=== PATIENT | male | born 1975 | race Caucasian/White ===

== ENCOUNTER → 2017-04-16 | Outpatient (POV) | payer MEDICAID, SELFPAY | PROVIDERS: Family Provider Nurse Practitioner Family; PCP Nurse Practitioner Family; Visit Provider Specialist | DX: R20.2 Paresthesia of skin (principal); R20.8 Other disturbances of skin sensation; M54.5 Low back pain; G89.29 Other chronic pain | CPT/HCPCS: 95886; 95909 ==

== ENCOUNTER 2017-06-07 07:33 | Day surgery (SDC) | payer MEDICAID, SELFPAY ==
[2017-06-06 12:38] VITALS: BMI 42.3
[2017-06-07] VITALS (10 sets, daily range): BP systolic 101–141; BP diastolic 66–97; PULSE 76–105; RESP 16–20; TEMP 36.8–36.9; O2SAT 90–96
--- NOTE | 2017-06-07 09:17 | HMH.SCOPE ---
- Procedure: Date/Time of Procedure:: 06/07/17 09:17 Procedure Performed:: Esophagogastroduodenoscopy with biopsy Indications:: This is a 42-year-old gentleman being evaluated for epigastric pain. Performing Provider:: Theron Doyle MD Referring Provider:: Khalida Tenorio APRN Sedation:: IV sedation with 7 mg of Versed and 150 mcg of fentanyl Procedure:: After informed consent was obtained, the patient was taken to the end of suite. IV sedation instructor he was transferred to the left lateral decubitus position. The stomach was entered. Retroflexion revealed a sliding hiatal hernia. Minimal inflammatory response proximally was noted. The gastroesophageal junction was at 40 cm. Evaluation distally revealed focal severe inflammation at the antrum/pylorus. Biopsies were obtained. The pylorus was intubated. The duodenal mucosa appeared relatively normal. The gastroscope was carefully removed and the patient was transferred to recovery. Findings:: Esophageal junction at 40 cm Sliding hiatal hernia Focal severe inflammation of the antrum/pylorus Specimen: Antral biopsy Impressions:: (See findings) Recommendations:: Pending pathology Complications:: No immediate Estimated blood obtained (mL): 1
== END 2017-06-07 10:00 | disposition home or self-care (01) ==
PROVIDERS: PCP Emergency Medicine; Visit Provider Surgery
PROC: 0DJ08ZZ Inspection of Upper Intestinal Tract, Via Natural or Artificial Opening Endoscopic (ICD-10-PCS; CPT 43235; principal; 2017-06-07 08:30)
DX: K44.9 Diaphragmatic hernia without obstruction or gangrene (principal); R10.13 Epigastric pain; K52.9 Noninfective gastroenteritis and colitis, unspecified
CPT/HCPCS: 43239; 99152

== ENCOUNTER → 2017-07-09 07:28 | Outpatient (CLI) | payer MEDICAID, SELFPAY ==
--- NOTE | 2017-07-09 07:30 | NM_ITS ---
NM gastric emptying study CLINICAL INDICATION: Abdominal pain and bloating ORDERING PHYSICIAN: Theron Doyle MD PATIENT AGE: 42 years COMPARISON: None. DOSE: 0.54 mCi technetium sulfur colloid mixed in radio labeled meal FINDINGS: The one half emptying time is calculated be 58 minutes which is within normal limits. 76% of the gastric contents had emptied x 90 m. No obvious reflux on the submitted images. IMPRESSION: Normal gastric emptying time
--- NOTE | 2017-07-09 08:21 | HMH.ITSHM ---
lisinopril zoloft zantac naproxen
== END ==
PROVIDERS: Family Provider Nurse Practitioner Family; PCP Nurse Practitioner Family; Visit Provider Surgery
DX: K31.84 Gastroparesis (principal)
CPT/HCPCS: 78264; A9541

== ENCOUNTER → 2017-07-18 09:39 | Outpatient (CLI) | payer MEDICAID, SELFPAY ==
[2017-07-18 09:57] LABS: Basophils # 0.1 K/mm3 (0-0.2); Basophils % 1.2 % (0.1-2.0); Eosinophils # 0.2 K/mm3 (0.0-0.4); Eosinophils % 2.1 % (0.1-12.0); Hematocrit 45.2 % (42.0-52.0); Hemoglobin 14.7 g/dL (14.1-18.0); Lymphocytes # 2.4 K/mm3 (0.7-4.5); Lymphocytes % 28.3 K/mm3 (10-50); Mean Corpuscular HGB Conc 32.5 g/dL (31.8-35.4); Mean Corpuscular Hemoglobin 27.6 pg (27.0-31.2); Mean Corpuscular Volume 84.8 fl (80-94); Mean Platelet Volume 7.5 fl (7.4-10.4); Monocytes # 0.6 K/mm3 (0.1-1.0); Monocytes % 7.5 % (1.7-9.3); Neutrophils # 5.2 K/mm3 (1.8-7.8); Neutrophils % 60.9 % (37.0-80.0); Platelet Count 320 K/mm3 (142-424); Red Blood Count 5.33 M/mm3 (4.60-6.20); Red Cell Distribution Width 13.3 % (11.5-17.5); White Blood Count 8.6 K/mm3 (4.8-10.8)
[2017-07-18 11:20] LABS: Alanine Aminotransferase 26 U/L (12-78); Albumin Level 3.8 gm/dL (3.4-5.0); Albumin/Globulin Ratio 0.9 (1.1-1.8); Alkaline Phosphatase 114 U/L (46-116); Anion Gap 11.6 mEq/L (5-15); Aspartate Amino Transferase 15 U/L (15-37); Bilirubin,Total 0.3 mg/dL (0.2-1.0); Blood Urea Nitrogen 16 mg/dL (7-18); Calcium 8.8 mg/dL (8.5-10.1); Carbon Dioxide 31 mmol/L (21.0-32.0); Chloride 104 mmol/L (98-107); Creatinine,Serum 0.82 mg/dL (0.70-1.30); Estimated Glomerular Filt Rate 104 ml/min (>60); GFR (African American) 126 ML/MIN (>60); Globulin 4.1 gm/dl (1.3-3.2); Glucose 80 mg/dL (74-106); Potassium 4.6 mmoL/L (3.5-5.1); Sodium 142 mmol/L (136-145); Total Protein,Serum 7.9 gm/dL (6.4-8.2)
== END ==
PROVIDERS: PCP Emergency Medicine; Visit Provider Surgery
DX: K82.4 Cholesterolosis of gallbladder (principal)
CPT/HCPCS: 36415; 80053; 85025; 93005

== ENCOUNTER 2017-07-27 12:38 | Emergency (ER) | payer MEDICAID, SELFPAY ==
[2017-07-27 13:42] VITALS: BP 114/77; PULSE 88; RESP 18; TEMP 36.6; O2SAT 97; BMI 43.5
--- NOTE | 2017-07-27 14:17 | HMH.EDUTC ---
[facility] Disposition Clinical Impression: Viral syndrome Disposition: Home, Self-Care Condition on Discharge: Good Instructions: DI for Headache, Cough Additional Instructions: Follow up with family doctor if symptoms persist Return if needed Over the counter Motrin or Tylenol as needed for fever or pain If any life threatening problems go straight to ER Even though you tested negative for the flu today you could still end up testing positive in a couple of day where your has flu, drink plenty of liquids and rest Prescriptions: Dextromethorphan Polistirex [Delsym] 10 ml PO Q12H PRN #300 priscila.er.12h PRN Reason: Cough Loratadine [Claritin 10mg Tablet] 10 mg PO DAILY #30 tab Referrals: Abbe Saini MD [Primary Care Provider] - As needed Time of Disposition: 14:33 Medical Decision Making - Medical Records Medical records reviewed: Yes: I reviewed the patient's medical records. Vital Signs: 07/27/17 13:42 Temperature 97.8 F Temperature Source Oral Pulse Rate [Right Brachial] 88 Respiratory Rate 18 Blood Pressure [Right Arm] 114/77 Blood Pressure Mean [Right Arm] 89 Blood Pressure Source [Right Arm] Automatic Cuff Blood Pressure Position [Right Arm] Sitting 02 Sat by Pulse Oximetry 97 Oxygen Delivery Method Room Air - Jalil Inquiry Pt receiving controlled substance: No Jalil was queried for this patient: No - Reevaluation(s) Time: 14:22 Reevaluation #1: Patient initially refused flu testing but agreed to be tested after daughter tested positive for the flu Time: 14:29 Reevaluation #3: Patient flu test negative, patient informed that even though he is testing negative right now in a day or so he could easily test positive verbalized understand and advised that he would follow up with family doctor for further evaluation [facility] HPI - General Stated complaint: suspected high bp, headache sick to stomach Mode of Arrival: Ambulatory Source of Information: Patient Limitations: No Limitations Description of Symptoms (Recalled from Triage Doc. by RN): cough, GALLARDO, nausea, lower abd pain for 2 days HEENT Symptoms (Recalled from RN notes): Yes (GALLARDO) Resp Symptoms (Recalled from RN notes): Yes (cough) Skin Symptoms (Recalled from RN notes): No MS Symptoms (Recalled from RN notes): No Functional Status (Recalled from RN notes): na - History of Present Illness Provider Complaint: States that he has not been feeling well for several days State that he is not sure if he is getting sick or if his blood pressure was high so he came in get checked out. States that one of his children was sick ealier in the week and now his baby is sick too State that he has been having cramping like feeling in his lower abdomen and feels like he is nausous - Related Data Previous Rx's Medication Instructions Recorded lisinopril 5 mg tablet 10 mg PO DAILY #30 tab 06/21/17 sertraline 50 mg tablet 50 mg PO QDAY #30 tab 06/21/17 Dextromethorphan Polistirex 10 ml PO Q12H PRN #300 priscila.er.12h 07/27/17 [Delsym] Loratadine [Claritin 10mg Tablet] 10 mg PO DAILY #30 tab 07/27/17 Allergies Allergy/AdvReac Type Severity Reaction Status Date / Time No Known Allergies Allergy Verified 07/18/17 09:11 - Worker's Comp Is this a Worker's Comp case?: No Is this an Smartdate Worker's Comp?: No Is this a Magdi Worker's Comp?: No Smartdate History I have reviewed the patient's past medical history: Yes Medical History: Reports:: Hypertension, Migraine Denies:: Cancer, Diabetes Mellitus Type 1, Diabetes Mellitus Type 2, Lung Disease, MRSA, Seizures Laterality Cases: Bilateral: Myringotomy (Ear Tubes), Tonsillectomy Other Surgeries: Yes: EGD Amputation: No Fractures: No - Social History Educational Level: Completed High School Smoking Status: Never smoker Alcohol Intake: never Substance Use Type: denies use - Psychiatric History Expresses thoughts of harming self/others: None Suicide Plan Description: No Plan Family Hx:: S
--- NOTE | 2017-07-27 14:20 | ED_ITS ---
[facility] [place] Clinical Impression: Viral syndrome Disposition: Home, Self-Care Condition on Discharge: Good Instructions: DI for Headache, Cough Additional Instructions: Follow up with family doctor if symptoms persist Return if needed Over the counter Motrin or Tylenol as needed for fever or pain If any life threatening problems go straight to ER Even though you tested negative for the flu today you could still end up testing positive in a couple of day where your has flu, drink plenty of liquids and rest Prescriptions: Dextromethorphan Polistirex [Delsym] 10 ml PO Q12H PRN #300 priscila.er.12h PRN Reason: Cough Loratadine [Claritin 10mg Tablet] 10 mg PO DAILY #30 tab Referrals: Abbe Saini MD [Primary Care Provider] - As needed Time of Disposition: 14:33 Medical Decision Making - Medical Records Medical records reviewed: Yes: I reviewed the patient's medical records. Vital Signs: 07/27/17 13:42 Temperature 97.8 F Temperature Source Oral Pulse Rate [Right Brachial] 88 Respiratory Rate 18 Blood Pressure [Right Arm] 114/77 Blood Pressure Mean [Right Arm] 89 Blood Pressure Source [Right Arm] Automatic Cuff Blood Pressure Position [Right Arm] Sitting 02 Sat by Pulse Oximetry 97 Oxygen Delivery Method Room Air - Jalil Inquiry Pt receiving controlled substance: No Jalil was queried for this patient: No - Reevaluation(s) Time: 14:22 Reevaluation #1: Patient initially refused flu testing but agreed to be tested after daughter tested positive for the flu Time: 14:29 Reevaluation #3: Patient flu test negative, patient informed that even though he is testing negative right now in a day or so he could easily test positive verbalized understand and advised that he would follow up with family doctor for further evaluation [facility] [place] - General Stated complaint: suspected high bp, headache sick to stomach Mode of Arrival: Ambulatory Source of Information: Patient Limitations: No Limitations Description of Symptoms (Recalled from Triage Doc. by RN): cough, GALLARDO, nausea, lower abd pain for 2 days HEENT Symptoms (Recalled from RN notes): Yes (GALLARDO) Resp Symptoms (Recalled from RN notes): Yes (cough) Skin Symptoms (Recalled from RN notes): No MS Symptoms (Recalled from RN notes): No Functional Status (Recalled from RN notes): na - History of Present Illness Provider Complaint: States that he has not been feeling well for several days State that he is not sure if he is getting sick or if his blood pressure was high so he came in get checked out. States that one of his children was sick ealier in the week and now his baby is sick too State that he has been having cramping like feeling in his lower abdomen and feels like he is nausous - Related Data Previous Rx's Medication Instructions Recorded lisinopril 5 mg tablet 10 mg PO DAILY #30 tab 06/21/17 sertraline 50 mg tablet 50 mg PO QDAY #30 tab 06/21/17 Dextromethorphan Polistirex 10 ml PO Q12H PRN #300 priscila.er.12h 07/27/17 [Delsym] Loratadine [Claritin 10mg Tablet] 10 mg PO DAILY #30 tab 07/27/17 Allergies Allergy/AdvReac Type Severity Reaction Status Date / Time No Known Allergies Allergy Verified 07/18/17 09:11 - Worker's Comp Is this a Worker's Comp case?: No Is this an H Worker's Comp?: No Is this a Magdi Worker's Comp?: No H Histor
[2017-07-27 14:46] VITALS: BP 116/78; PULSE 76; RESP 18; TEMP 36.6
[2017-07-27 14:56] LABS: UTC Influenza A Antigen Negative (Negative); UTC Influenza B Antigen Negative (Negative)
== END 2017-07-27 14:46 | disposition home or self-care (01) ==
PROVIDERS: Emergency Provider Nurse Practitioner; Family Provider Nurse Practitioner Family; PCP Emergency Medicine
DX: B34.9 Viral infection, unspecified (principal); I10 Essential (primary) hypertension
CPT/HCPCS: 87804; 99202

== ENCOUNTER 2017-08-03 07:31 | Day surgery (SDC) | payer MEDICAID, SELFPAY ==
[2017-08-02 14:55] VITALS: BMI 43.5
[2017-08-03] VITALS (14 sets, daily range): BP systolic 131–159; BP diastolic 77–97; PULSE 57–84; RESP 12–18; TEMP 36.6–37.1; O2SAT 93–98
--- NOTE | 2017-08-03 08:18 | HMH.ANESCL ---
[facility] Anesthesia Checklist - Structural Data Admitted From: Home Planned Operative Procedure/s: caterina leighe Consent for Planned Operative Procedure(s) Verified: Yes Verified Documents: Surgical Consent - NPO Status Verified Time NPO: 11:30 - Airway Assessment C-Spine Mobility Assessed: Yes TMJ Mobility Assessed: Yes Dentition: Poor Dentition - Neurological Assessment Level of Consciousness: Awake, Alert - Anesthesia Plan Anesthesia Risk discussed: Yes Anesthesia Plan: Verified ASA Class: II Anesthesia Type: General [facility] Anesthesia HX I have reviewed the patient's past medical history: Yes Medical History: Reports:: Hypertension, Migraine Denies:: Cancer, Diabetes Mellitus Type 1, Diabetes Mellitus Type 2, Internal Pacemaker, Lung Disease, MRSA, Seizures Other Medical History: Denies: Blood Transfusion Reaction Laterality Cases: Bilateral: Myringotomy (Ear Tubes), Tonsillectomy Other Surgeries: Yes: EGD. No: Pacemaker Amputation: No Fractures: No *Family Hx:: Stroke, Hypertension, Diabetes
--- NOTE | 2017-08-03 09:38 | P.OP_ITS ---
Date of procedure: 08/03/17 Pre-op Diagnosis:: Right upper quadrant pain Cholesterolosis of gallbladder Post-op Diagnosis:: Chronic cholecystitis Procedure performed:: Laparoscopic cholecystectomy Surgeon:: Theron Doyle MD Musical Instrument Supervisor(s):: Uri Mcgowan SINKER WINDER:: Giancarlo Dorantes Anesthesia: GETA Estimated blood loss (mL): 10 Operative findings:: Moderate pericholecystic fat stranding (in particular, in and around the infundibulum) Operative note:: After informed consent was obtained, the patient was taken to the operating room and placed in the supine position. General anesthesia was induced and the abdomen was prepped and draped in a sterile fashion. After infiltration with local anesthetic an infraumbilical incision was made. A Veress needle was placed in position. The abdomen was insufflated. A 5 mm optical trocar was placed in position. Under direct visualization, a 12 mm trocar was placed in the subxiphoid position and 2 additional 5 mm trocars were placed in the right upper quadrant. The gallbladder was elevated up and over the liver margin. The tissue around the cystic duct was carefully dissected. 3 clips were placed proximally and the duct was transected with harmonic sanjeev. 2 clips were placed on the cystic artery. Harmonic sanjeev were then utilized to dissect above these clips and to also dissect the gallbladder away from the liver margin. The gallbladder was placed in a retrieval bag and removed through the subxiphoid trocar site. The right upper quadrant was thoroughly irrigated. No active bleeding or bile leak was noted. Fascia at the subxiphoid trocar site was reapproximated utilizing the NeoClose device. The remaining trocars were removed. All wounds were irrigated and skin was closed with 4-0 Monocryl in a subcuticular fashion. Steri-Strips were applied. The patient's anesthetic agents were reversed and extubation was completed prior to transfer to recovery in stable condition. Condition: stable Disposition: PACU Specimens:: Gallbladder and contents Complications:: No immediate
--- NOTE | 2017-08-03 09:53 | HMH.ANESI ---
[facility] Anesthesia Record Part I Intake, IV Amount: 1,500 Estimated blood loss (mL): 0 Urine output (mL): 0 Blood Pressure: 146/97 SaO2: 93 Pulse Rate: 63 Respiratory Rate: 12 Temperature: 98.7 F Patient is:: Awake, Stable Stable to PACU at:: 09:55
--- NOTE | 2017-08-03 09:54 | P.PN_ITS ---
[facility] Anesthesia Record Part II Discharge Time: 01:25 Destination: [facility] PACU nurse assessment reviewed?: Yes Patient Condition:: Good Anesthesia Complications:: None
--- NOTE | 2017-08-03 09:54 | HMH.ANESII ---
[facility] Anesthesia Record Part II Discharge Time: 01:25 Destination: [facility] PACU nurse assessment reviewed?: Yes Patient Condition:: Good Anesthesia Complications:: None
== END 2017-08-03 11:01 | disposition home or self-care (01) ==
LOC: OR 07:32
PROVIDERS: Family Provider Nurse Practitioner Family; PCP Emergency Medicine; Visit Provider Surgery
PROC: 0FT44ZZ Resection of Gallbladder, Percutaneous Endoscopic Approach (ICD-10-PCS; CPT 47562; principal; 2017-08-03 08:45)
DX: K82.4 Cholesterolosis of gallbladder (principal); K80.10 Calculus of gallbladder with chronic cholecystitis without obstruction
CPT/HCPCS: 47562; 96374; J2270; J2405; J2710

== ENCOUNTER → 2017-10-08 10:03 | Outpatient (REF) | payer MEDICAID, SELFPAY ==
[2017-10-09 09:22] LABS: Hep A Ab, IgM Negative (Negative); Hepatitis B Core Antibody IgM Negative (Negative); Hepatitis B Surface Antigen Negative (Negative)
[2017-10-09 12:00] LABS: HIV Screen 4th Generation wRfx Non Reactive (Non Reactive); Hepatitis C Antibody <0.1 s/co ratio (0.0-0.9); Rapid Plasma Reagin Ab Titer Non Reactive (NonRea<1:1)
== END ==
LOC: LAB 10:03
PROVIDERS: Visit Provider Nurse Practitioner Family
DX: R53.83 Other fatigue (principal)
CPT/HCPCS: 80074; 86592; 86703; G0432

== ENCOUNTER 2017-12-06 08:00 | Outpatient (RCR) | payer MEDICAID, SELFPAY ==
--- NOTE | 2017-10-25 09:16 | HMH.PTOPEV ---
PT Outpatient Evaluation Rehab PT Outpatient Evaluation Start: 10/25/17 08:52 Freq: Status: Active Protocol: Document 10/25/17 08:52 NATASHA (Rec: 10/25/17 09:14 NATASHA [id number]) Electronically Signed By Osmar Lange, PT 10/25/17 08:52 Outpatient Therapy Subjective History Subjective History Patient is a 42 year old male presenting to outpatient PT with reports of L wrist/hand pain with associated numbness and tingling predominantly in the ulnar nerve distribution but migrates across the entire hand. He was referred with diagnosis of CTS and De Quervains syndrome. Symptoms started 04/2017 and have progressively gotten worse. Pt reports that he has already scheduled for surgery on 12/11. Pt refuses any injections. No treatment for current syptoms to date. Pt reports taking OTC NSIAD's prn . 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 Worker Strength Symptom Type Ache Sharp Numbness Tingling Symptoms Relieved By Nothing Symptoms Aggravated By Physical Activity Prior Functional Limitations None Current Functional Limitations Lifting Housework Dressing Driving Sleeping Recreation Activity Symptom Description Constant but Variable Level of pain today (0-10) 4 Pain scale - at its best (0-10) 8 Pain scale - at its worst (0-10) 2 Wrist/Hand Eval Palpation Tenderness/Visual Exam Wrist pain left tenderness wrist exam standard left Wrist/Hand Palpation Findings Tenderness Flexibility Deficits Wrist Extensors Muscle Length (L) Mild Tightness Wrist Flexors Muscle Length (L) Mild Tightness Wrist Range of Motion Wrist Limitations of Range of Motion Soft Tissue Tightness Wrist Extension Active Range of Motion ( 45 degrees) Wrist Flexion Active Range of Motion ( 38 degrees) Wrist Radial Deviation Active Range of 20 Motion (degrees) Wrist Ulnar Deviation Active Range of 30
== END 2017-12-06 08:01 | disposition home or self-care (01) ==
LOC: PT 08:00
PROVIDERS: Family Provider Nurse Practitioner Family; PCP Emergency Medicine; Visit Provider Orthopaedic Surgery
DX: G56.02 Carpal tunnel syndrome, left upper limb (principal); M65.4 Radial styloid tenosynovitis [de Quervain]
CPT/HCPCS: 97010; 97014; 97018; 97033; 97035; 97110; 97163; G0283

== ENCOUNTER → 2017-12-27 08:46 | Outpatient (CLI) | payer MEDICAID, SELFPAY ==
--- NOTE | 2017-12-27 08:46 | XR_ITS ---
XR foot wt bearing RT 3V, XR foot wt bearing LT 3V Ordering Physician: Araceli Torres DPM Patient Age: 42 years: Male HISTORY: ITS.REASON: pain Painful feet bilaterally. TECHNIQUE: Right foot weightbearin views Left foot weightbearing 3 views COMPARISON :No studies prior to today ======= RIGHT FOOT weightbearin views Right foot is intact...... Satisfactory osseous relationships. No erosions. Bones well mineralized. Adequate plantar arch. Small calcaneal spurs with small just over 5 mm plantar calcaneal spur with only very minimal spurring at insertion of Achilles tendon also noted. . ========= LEFT FOOT weightbearing 3 views Left foot is intact...... Satisfactory osseous relationships. No erosions. Bones well mineralized. Adequate plantar arch. small less than 4 mm mm plantar calcaneal spur , with only mild prominence at insertion of Achilles tendon.. .
--- NOTE | 2017-12-27 08:46 | XR_ITS ---
XR foot wt bearing RT 3V, XR foot wt bearing LT 3V Ordering Physician: Araceli oTrres DPM Patient Age: 42 years: Male HISTORY: ITS.REASON: pain Painful feet bilaterally. TECHNIQUE: Right foot weightbearin views Left foot weightbearing 3 views COMPARISON :No studies prior to today ======= RIGHT FOOT weightbearin views Right foot is intact...... Satisfactory osseous relationships. No erosions. Bones well mineralized. Adequate plantar arch. Small calcaneal spurs with small just over 5 mm plantar calcaneal spur with only very minimal spurring at insertion of Achilles tendon also noted. . ========= LEFT FOOT weightbearing 3 views Left foot is intact...... Satisfactory osseous relationships. No erosions. Bones well mineralized. Adequate plantar arch. small less than 4 mm mm plantar calcaneal spur , with only mild prominence at insertion of Achilles tendon.. .
== END ==
PROVIDERS: Visit Provider Podiatrist
DX: M79.673 Pain in unspecified foot (principal)
CPT/HCPCS: 73630

== ENCOUNTER 2018-01-18 14:00 | Outpatient (RCR) | payer MEDICAID, SELFPAY ==
--- NOTE | 2017-12-21 13:53 | HMH.OTOPEV ---
OT Inpatient Evaluation Rehab OT Outpatient Eval Start: 12/21/17 13:30 Freq: Status: Active Protocol: Document 12/21/17 13:30 TFRY (Rec: 12/21/17 13:50 TFRY [id number]) Electronically Signed By Lamar Garcias, OT 12/21/17 13:30 Outpatient Therapy Subjective History Subjective History This a 42 year old right handed male referred to occupational therapy for left hand/wrist flexor tendonitis and left DeQuervains tenosynovtis/left carpal tunnel. Patient states that he had been in therapy for his carpal tunnel syndrome and it got better. But when he went to see doctor for follow up visit he reported to the doctor dorsal surface wrist pain. Chief Complaint Pain Symptom Type Throb Sharp Symptoms Relieved By Nothing Symptoms Aggravated By Physical Activity Prior Functional Limitations None Current Functional Limitations Desk Work/Reading Symptom Description Constant but Variable Level of pain today (0-10) 5 Pain scale - at its best (0-10) 2 Pain scale - at its worst (0-10) 8 Wrist/Hand Eval Palpation Tenderness/Visual Exam Wrist pain left tenderness wrist exam standard left Wrist/Hand Palpation Findings Tenderness Wrist/Hand Palpation Overall Comment tenderness at anatomical snuff box on left Wrist Range of Motion Wrist ROM Reason Not Measured Within Functional Limits Wrist Manual Muscle Testing Left Wrist Extension Strength Grade 4 Good Wrist Flexion Strength Grade 4 Good Wrist Radial Deviation Strength Grade 4 Good Wrist Ulnar Deviation Strength Grade 4 Good Forearm Pronation Strength Grade 4 Good Supinator Strength Grade 4 Good Mapping Supervisor/Pinch Strength Mapping Supervisor Strength Measurement (lbs) 68 Special Tests Wrist Phalen Test Negative Left Hand Caldwell Test Negative Left Wrist Tinel Test Negative Left Wrist Finklestein Test Negative Left OT Outpatient Assessment Impairments Problems/Impairments Palpation Tenderness Impaired Strength Subjective C/O Pain Prognosis Rehab Potential Fair Clinical Impression Consistent with Diagnosis Yes Short Term Goals Number of Weeks 2 Decreased Palpation Tenderness Yes Increase Strength Yes:
== END 2018-01-18 14:01 | disposition home or self-care (01) ==
LOC: OT 14:00
PROVIDERS: Family Provider Nurse Practitioner Family; PCP Emergency Medicine; Visit Provider Orthopaedic Surgery
DX: M77.8 Other enthesopathies, not elsewhere classified (principal); M65.4 Radial styloid tenosynovitis [de Quervain]; G56.00 Carpal tunnel syndrome, unspecified upper limb
CPT/HCPCS: 97033; 97110; 97165

== ENCOUNTER → 2018-02-18 10:30 | Outpatient (CLI) | payer MEDICAID, SELFPAY ==
[2018-02-18 11:28] LABS: C-Reactive Protein 1.9 mg/L (0.0-0.9)
[2018-02-18 13:19] LABS: Erythrocyte Sedimentation Rate 41 mm/hr (0-15)
[2018-02-19 08:20] LABS: RA Latex Turbid. <10.0 IU/mL (0.0-13.9)
[2018-02-19 14:19] LABS: Anti-Jo-1 <0.2 AI (0.0-0.9); Anti-Smith Antibody <0.2 AI (0.0-0.9); Antichromatin Antibodies <0.2 AI (0.0-0.9); Antiscleroderma-70 Antibodies <0.2 AI (0.0-0.9); RNP Antibodies <0.2 AI (0.0-0.9); Sjogren's Anti-SS-A <0.2 AI (0.0-0.9); Sjogren's Anti-SS-B <0.2 AI (0.0-0.9)
[2018-02-20 01:09] LABS: PTT-LA 37.9 sec (0.0-51.9)
[2018-02-20 07:48] LABS: Anti-Centromere B Antibodies <0.2 AI (0.0-0.9); Anti-DNA (DS) Ab Qn 1 IU/mL (0-9); HIV Screen 4th Generation wRfx Non Reactive (Non Reactive)
[2018-02-20 07:49] LABS: Anti-Cyclic Citrullinated Pept 9 units (0-19)
[2018-02-20 07:52] LABS: dRVVT 47.6 sec (0.0-47.0)
[2018-02-22 09:23] LABS: Lupus Reflex Interpretation Comment: (.)
== END ==
PROVIDERS: PCP Nurse Practitioner Family; Visit Provider Nurse Practitioner Family
DX: M25.50 Pain in unspecified joint (principal); Z20.6 Contact with and (suspected) exposure to human immunodeficiency virus [HIV]
CPT/HCPCS: 36415; 85613; 85651; 86140; 86200; 86225; 86235; 86431; 86703; G0432

== ENCOUNTER → 2018-03-15 13:46 | Outpatient (CLI) | payer MEDICAID, SELFPAY ==
--- NOTE | 2018-03-15 13:56 | MR_ITS ---
MR foot LT wo/w con HISTORY: Medial left foot pain and swelling Left foot pain and swelling, posterior tibial tendon ITS.REASON: PTTD of Left Lower Extremity ORDERING PHYSICIAN: Araceli Torres DPM PATIENT AGE: 42 years Comparison: 12/27/2017 TECHNIQUE: Standard multiplanar multiecho sequences are performed of the forefoot without and with gadolinium enhancement. The hindfoot and ankle are not included on the images. FINDINGS: No obvious fracture, dislocation, bone bruise or other significant anomalies evident. No abnormal fluid collections. No significant degenerative change IMPRESSION: Unremarkable MRI of the forefoot. Consider MRI of the hindfoot/ankle for further evaluation of posterior tibialis tendon dysfunction
--- NOTE | 2018-03-15 15:14 | HMH.ITSHM ---
Current Home Medications as stated by this patient Danilo Proctor or manufacturer representative. []sertraline meloxicam omeprazole bisolprol losartan
== END ==
PROVIDERS: Family Provider Nurse Practitioner Family; PCP Nurse Practitioner Family; Visit Provider Podiatrist
DX: M76.822 Posterior tibial tendinitis, left leg (principal)
CPT/HCPCS: 73720; A9576

== ENCOUNTER → 2018-03-26 10:49 | Outpatient (CLI) | payer MEDICAID, SELFPAY | PROVIDERS: Family Provider Nurse Practitioner Family; PCP Nurse Practitioner Family; Visit Provider Podiatrist | DX: M76.822 Posterior tibial tendinitis, left leg (principal) ==

== ENCOUNTER → 2018-04-10 12:11 | Outpatient (CLI) | payer MEDICAID, SELFPAY ==
[2018-04-10 14:03] LABS: Basophils # 0.1 K/mm3 (0-0.2); Basophils % 1.3 % (0.1-2.0); Eosinophils # 0.2 K/mm3 (0.0-0.4); Eosinophils % 1.6 % (0.1-12.0); Hematocrit 43.2 % (42.0-52.0); Hemoglobin 13.7 g/dL (14.1-18.0); Lymphocytes # 2.6 K/mm3 (0.7-4.5); Lymphocytes % 24.7 % (10-50); Mean Corpuscular HGB Conc 31.7 g/dL (31.8-35.4); Mean Corpuscular Hemoglobin 26.8 pg (27.0-31.2); Mean Corpuscular Volume 84.7 fl (80-94); Mean Platelet Volume 7.6 fl (7.4-10.4); Monocytes # 0.7 K/mm3 (0.1-1.0); Monocytes % 6.7 % (1.7-9.3); Neutrophils # 6.9 K/mm3 (1.8-7.8); Neutrophils % 65.8 % (37.0-80.0); Platelet Count 344 K/mm3 (142-424); Red Cell Distribution Width 14.3 % (11.5-17.5); White Blood Count 10.4 K/mm3 (4.8-10.8)
[2018-04-10 14:21] LABS: Alanine Aminotransferase 43 U/L (12-78); Albumin Level 3.7 gm/dL (3.4-5.0); Albumin/Globulin Ratio 0.9 (1.1-1.8); Alkaline Phosphatase 127 U/L (46-116); Anion Gap 14.1 mEq/L (5-15); Aspartate Amino Transferase 25 U/L (15-37); Bilirubin,Total 0.4 mg/dL (0.2-1.0); Blood Urea Nitrogen 15 mg/dL (7-18); Calcium 8.5 mg/dL (8.5-10.1); Carbon Dioxide 29 mmol/L (21.0-32.0); Chloride 102 mmol/L (98-107); Creatinine,Serum 0.91 mg/dL (0.70-1.30); Estimated Glomerular Filt Rate 92 ml/min (>60); GFR (African American) 112 ML/MIN (>60); Globulin 4.2 gm/dl (1.3-3.2); Glucose 82 mg/dL (74-106); Potassium 4.1 mmoL/L (3.5-5.1); Sodium 141 mmol/L (136-145); Total Protein,Serum 7.9 gm/dL (6.4-8.2)
[2018-04-12 09:27] LABS: Vitamin D 25 Hydroxy 13.2 ng/mL (30.0-100.0)
== END ==
PROVIDERS: Visit Provider Podiatrist
DX: M76.822 Posterior tibial tendinitis, left leg (principal); M21.6X2 Other acquired deformities of left foot; M25.472 Effusion, left ankle; M65.9 Synovitis and tenosynovitis, unspecified; M19.072 Primary osteoarthritis, left ankle and foot; M79.672 Pain in left foot
CPT/HCPCS: 36415; 80053; 82652; 85025

== ENCOUNTER → 2018-06-07 12:11 | Outpatient (CLI) | payer MEDICAID, SELFPAY ==
--- NOTE | 2018-06-07 12:28 | XR_ITS ---
XR chest 2V HISTORY: ITS.REASON: HTN ORDERING PHYSICIAN: Araceli Torres DPM PATIENT AGE: 43 years COMPARISON: PA and lateral chest 02/21/2017 FINDINGS: This is a slightly poor inspiration however lung kessler are clear of infiltrate. There is minimal crowding of vascular markings at the right base. There is borderline cardio megaly with no pulmonary congestion and is no pleural fluid.. IMPRESSION: Negative chest, no acute finding
== END ==
PROVIDERS: PCP Nurse Practitioner Family; Visit Provider Podiatrist
DX: Z01.818 Encounter for other preprocedural examination (principal)
CPT/HCPCS: 71046; 93005

== ENCOUNTER → 2018-07-22 11:03 | Outpatient (CLI) | payer MEDICAID, SELFPAY ==
--- NOTE | 2018-07-22 11:06 | XR_ITS ---
XR ankle wt bearing LT min 3V HISTORY: Tendon repair ITS.REASON: post-op ORDERING PHYSICIAN: Araceli Torres DPM PATIENT AGE: 43 years Comparison: .) : 06/14/2018 FINDINGS: The metallic side plate is again seen distal fibula. There is a translucent fixator extending through the distal tibia in the tibial fibular syndesmosis and into the distal fibula. The medial lateral malleolus appear grossly normal and the ankle mortise is normal. IMPRESSION: Stable postsurgical changes as described.
--- NOTE | 2018-07-22 11:06 | XR_ITS ---
XR foot wt bearing LT 3V HISTORY: Follow-up surgery ITS.REASON: post-op ORDERING PHYSICIAN: Araceli Torres DPM PATIENT AGE: 43 years COMPARISON: 06/14/2018 FINDINGS: The splint has been removed. There is good alignment. No fracture or dislocation. IMPRESSION: Interval removal of the splint otherwise negative left foot
== END ==
PROVIDERS: PCP Nurse Practitioner Family; Visit Provider Podiatrist
DX: Z98.890 Other specified postprocedural states (principal); M79.672 Pain in left foot
CPT/HCPCS: 73610; 73630

== ENCOUNTER → 2018-09-23 10:39 | Outpatient (CLI) | payer MEDICAID, SELFPAY ==
--- NOTE | 2018-09-23 10:44 | XR_ITS ---
XR ankle wt bearing LT min 3V HISTORY: ITS.REASON: pain, follow-up surgery ORDERING PHYSICIAN: Araceli Torres DPM PATIENT AGE: 43 years Comparison: 07/22/2018 FINDINGS: The metallic side plate is again seen distal fibula. There is a translucent fixator extending through the distal tibia in the tibial fibular syndesmosis and into the distal fibula. The medial and lateral malleolus appear grossly normal and the ankle mortise is normal. The talar dome has an unremarkable appearance. There is some mild osteopenia in the mid and hindfoot IMPRESSION: Stable postsurgical changes as described.
--- NOTE | 2018-09-23 10:44 | XR_ITS ---
XR foot wt bearing LT 3V HISTORY: ITS.REASON: pain ORDERING PHYSICIAN: Araceli Torres DPM PATIENT AGE: 43 years COMPARISON: 07/22/2018 FINDINGS: No fracture or dislocation. No lytic or blastic change. There is normal mineralization.. The joint spaces are well-preserved. No significant degenerative/arthritic changes. No erosive changes evident. Mild osteopenia IMPRESSION: Osteopenia otherwise negative
== END ==
PROVIDERS: PCP Nurse Practitioner Family; Visit Provider Podiatrist
DX: Z98.890 Other specified postprocedural states (principal)
CPT/HCPCS: 73610; 73630

== ENCOUNTER 2018-09-26 15:11 | Observation (INO) ==
--- NOTE | 2018-09-26 15:19 | Emergency Department Note ---
ED Disposition Clinical Impression: Epileptic seizure Qualifiers: Epilepsy type: unspecified Intractability: not intractable Status epilepticus: without status epilepticus Qualified Code(s): G40.909 - Epilepsy, unspecified, not intractable, without status epilepticus Disposition: Admitted as Observation Condition on Discharge: Good Instructions: DI for Seizure Disorder -- Adult, DI for Seizure (Not Epilepsy/Seizure Disorder), DI for Seizure Disorder -- Child Referrals: Abbe Saini MD [Primary Care Provider] - - Critical Care Critical Care Time: No Attestation: On , the high probability of a clinically significant, sudden or life threatening deterioration of the following system(s) required my full and direct attention, intervention and personal management. The time I documented below is in addition to time spent performing reported procedures but includes the following listed in this critical care notation. Medical Decision Making - Medical Records Medical records reviewed: Yes: I reviewed the patient's medical records. - Jalil Inquiry Pt receiving controlled substance: No Vital Signs: 09/26/18 15:12 09/26/18 17:59 09/26/18 18:00 Temperature 98.3 F 98 F Temperature Source Oral Oral Pulse Rate [Left Brachial] 72 94 H 89 Respiratory Rate 18 18 Blood Pressure [Right Arm] 148/85 H 133/88 128/88 Blood Pressure Mean [Right Arm] 106 103 101 Blood Pressure Source [Right Arm] Automatic Cuff Automatic Cuff Automatic Cuff Blood Pressure Position [Right Arm] Sitting Supine Sitting 02 Sat by Pulse Oximetry 98 98 96 Oxygen Delivery Method Room Air Room Air Room Air - Lab Data Lab Results 09/26/18 15:42: WBC 14.5 H, RBC 5.49, Hgb 14.8, Hct 45.9, MCV 83.5, MCH 27.0, MCHC 32.3, RDW 14.1, Plt Count 375, MPV 7.5, Neut % (Auto) 72.6, Lymph % (Auto) 17.8, [place] % (Auto) 6.7, Eos % (Auto) 1.7, Baso % (Auto) 1.1, Neut # (Auto) 10.5 H, Lymph # (Auto) 2.6, [place] # (Auto) 1.0, Eos # (Auto) 0.2, Baso # (Auto) 0.2 09/26/18 15:42: Sodium 138, Potassium 3.6, Chloride 98, Carbon Dioxide 30, Anion Gap 13.6, BUN 13, Creatinine 1.07, Estimated Creat Clear 82, Estimated GFR 76, Est GFR ( Amer) 92, Glucose 109 H, Calcium 8.8, Total Bilirubin 0.4, AST 30, ALT 63, Alkaline Phosphatase 119 H, Troponin I < 0.02, Total Protein 8.6 H, Albumin 3.7, Globulin 4.9 H, Albumin/Globulin Ratio 0.8 L, Salicylates 2.4 L, Acetaminophen 0 L, Plasma/Serum Alcohol 0 09/26/18 15:42: Lactate 1.1 09/26/18 17:06: Urine Opiates Screen Negative, Urine Methadone Screen Negative, Ur Barbituates Screen Negative, Ur Phencyclidine Scrn Negative, Ur Amphetamines Screen Negative, U Benzodiazepines Scrn Negative, Urine Cocaine Screen Negative, U Marijuana (THC) Screen Negative Result diagrams: 09/26/18 15:42 09/26/18 15:42 Orders (Tests/Meds): ED MEDICATIONS Discontinued Medications Generic Name Dose Route Start Last Admin Trade Name Silvano PRN Reason Stop Dose Admin Levetiracetam 1,000 mg/ Sodium 110 mls @ 220 mls/hr 09/26/18 15:16 09/26/18 15:42 Chloride IV 09/26/18 15:17 220 mls/hr ONCE ONE Administration ORDERS Category Date Time Status Blood Culture Stat Micro 09/26/18 15:42 Received - Radiology Data #1 Image(s): Chest Image Reviewed: Yes I have reviewed radiologist's interpretation Preliminary Findings: Normal/NAD - CT Data CT Scan: Head Time Received: 18:19 (nap) ED CT Reviewed: Yes: I have viewed the radiologist's interpretation - ECG Data Tracing #1 I reviewed this ECG and interpreted as documented below: Normal Sinus Rhythm: Yes (lvh, no stemi) Medical Decision Narrative: admit d/w Dr Miguel General Adult HPI - General Chief complaint: Seizure Stated complaint: seizure Time Seen by Provider: 09/26/18 15:17 Source of Information: Patient - History of Present Illness HPI narrative: new onset tonic clonic seizure today, no injury, no fever, no pain, speech fluent, hx migraines and htn - Related Data Home Medications Medication Instructions Recorded Confirmed Cholecalciferol (Vitamin D3) 50,000 unit PO QWEEK 06/13/18 09/26/18 [Vitamin D3 50,000 unit Cap] Ergocalciferol (Vitamin D2) 50,000 unit PO QWEEK 06/13/18 09/26/18 [Drisdol] Losartan/Hydrochlorothiazide 1 tab PO DAILY 06/13/18 09/26/18 [Hyzaar 100-12.5 Tablet] Omeprazole [Omeprazole 40mg 40 mg PO DAILY 06/13/18 09/26/18 Capsule] Fluoxetine HCl [Prozac] 40 mg PO DAILY 09/26/18 09/26/18 Propranolol HCl [Propranolol HCl 120 mg PO DAILY 09/26/18 09/26/18 ER] SUMAtriptan succinate [Sumatriptan See Rx Instructions PO .COMPLEX 09/26/18 09/26/18 Succinate] Previous Rx's Medication Instructions Recorded ibuprofen 800 mg tablet 800 mg PO BID #60 tab 05/30/18 Allergies Allergy/AdvReac Type Severity Reaction Status Date / Time No Known Allergies Allergy Verified 09/26/18 13:52 [facility] History - Hepatitis A Screen Attestation statement:: This patient has been screened for Hepatitis A risk factors. Medical History: Reports:: Anxiety, Depression, Hypertension, Migraine Denies:: Cancer, Diabetes Mellitus Type 1, Diabetes Mellitus Type 2, Internal Pacemaker, Lung Disease, MRSA, Seizures Other Medical History: Reports: Arthritis, Sinus Problems. Denies: Blood Transfusion Reaction Comment: Anxiety, Depression,Low back pain Laterality Cases: Other Surgeries: Yes: Cholecystectomy, EGD. No: Pacemaker Amputation: No Fractures: No Comment: T&A,Ear tubes bilateral,Hernia Repair, left ankle surgery - Social History Smoking Status: Never smoker Alcohol Intake: never Alcohol Intake Frequency:: other Substance Use Type: denies use Occupational Status: unemployed Housing: house Household Members: family - Psychiatric History Pschychiatric History:: Reports:: Anxiety, Depression Family Hx:: Stroke, Hypertension, Diabetes, Heart Attack, Coronary Artery Disease Comment: Mother of VT at age 66 ROS Obtained: Yes Systems reviewed as appropriate & no additional complaints - Constitutional Constitutional: Denies fever(s) - Eyes Eyes: Denies change in vision - ENT Ears, Nose, Mouth, and Throat: Denies epistaxis - Cardiovascular Cardiovascular: Denies chest pain - Respiratory Respiratory: No dyspnea - Gastrointestinal Gastrointestingal: Denies: abdominal pain - Musculoskeletal Musculoskeletal: Denies neck pain - Integumentary/Breasts Skin/Breast: Denies bleeding lesions - Neurologic Neurologic: Denies abnormal speech, Denies focal weakness, Reports headache(s), Reports seizure-like activity Physical Exam - General General appearance: alert, in no apparent distress - Head Head exam: atraumatic - Eye Eye exam: Present: PERRL, EOMI - ENT ENT exam: Present: normal exam - Neck Neck exam: Present: normal inspection - Chest Chest inspection: Present: normal inspection - Respiratory Respiratory exam: Present: normal lung sounds bilaterally - Cardiovascular Cardiovascular exam: Present: regular rate, normal rhythm - Abdominal Exam Abdominal exam: Present: soft. Absent: tenderness - Extremities Exam Extremities exam: Present: full ROM - Back Exam Back exam: Absent: vertebral tenderness - Neurological Exam Neurological exam: Present: alert, oriented X3, other (cn 3 to 10 grossly intact) - Psychiatric Psychiatric exam: Present: normal affect, normal mood - Skin Skin exam: Present: warm, dry
[2018-09-26 15:53] LABS: Basophils # 0.2 K/mm3 (0-0.2); Basophils % 1.1 % (0.1-2.0); Eosinophils # 0.2 K/mm3 (0.0-0.4); Eosinophils % 1.7 % (0.1-12.0); Hematocrit 45.9 % (42.0-52.0); Hemoglobin 14.8 g/dL (14.1-18.0); Lymphocytes # 2.6 K/mm3 (0.7-4.5); Lymphocytes % 17.8 % (10-50); Mean Corpuscular HGB Conc 32.3 g/dL (31.8-35.4); Mean Corpuscular Volume 83.5 fl (80-94); Mean Platelet Volume 7.5 fl (7.4-10.4); Monocytes % 6.7 % (1.7-9.3); Neutrophils # 10.5 K/mm3 (1.8-7.8); Neutrophils % 72.6 % (37.0-80.0); Platelet Count 375 K/mm3 (142-424); Red Blood Count 5.49 M/mm3 (4.60-6.20); Red Cell Distribution Width 14.1 % (11.5-17.5); White Blood Count 14.5 K/mm3 (4.8-10.8)
[2018-09-26 16:07] LABS: Alanine Aminotransferase 63 U/L (12-78); Albumin Level 3.7 gm/dL (3.4-5.0); Albumin/Globulin Ratio 0.8 (1.1-1.8); Alkaline Phosphatase 119 U/L (46-116); Anion Gap 13.6 mEq/L (5-15); Aspartate Amino Transferase 30 U/L (15-37); Bilirubin,Total 0.4 mg/dL (0.2-1.0); Blood Urea Nitrogen 13 mg/dL (7-18); Calcium 8.8 mg/dL (8.5-10.1); Carbon Dioxide 30 mmol/L (21.0-32.0); Chloride 98 mmol/L (98-107); Globulin 4.9 gm/dl (1.3-3.2); Glucose 109 mg/dL (74-106); Potassium 3.6 mmoL/L (3.5-5.1); Salicylate 2.4 mg/dL (2.8-20.0); Sodium 138 mmol/L (136-145); Total Protein,Serum 8.6 gm/dL (6.4-8.2)
[2018-09-26 16:12] LABS: Acetaminophen 0 ug/mL (10-30); Ethyl Alcohol 0 mg/dL (0-99)
[2018-09-26 17:21] LABS: Amphetamine/Metha Screen,Urine Negative ng/mL (<1000); Barbiturates Screen,Urine Negative ng/mL (<200); Benzodiazepines Screen,Urine Negative ng/mL (<200); Cannabinoid Screen,Urine Negative ng/mL (<50); Cocaine Screen,Urine Negative ng/mL (<300); Methadone Screen,Urine Negative ng/mL (<300); Opiate Screen,Urine Negative ng/mL (<300); Phencyclidine Screen,Urine Negative ng/mL (<25)
--- NOTE | 2018-09-27 07:36 | Pharmacy Consult Notes ---
[facility] Pharmacy VTE Monitoring - Patient Demographics Admission date: 09/26/18 Report Date: 09/27/18 Time: 07:36 Allergies/Adverse Reactions: Patient Allergies No Known Allergies Allergy (Verified 09/26/18 13:52) Height: 1.68 m Weight: 143 kg Patient Problems: Current Active Problems (Updated 09/26/18 @ 18:20 by Sixto Villalpando MD) Epileptic seizure (Acute) - VTE Risk Labs: VTE Related Lab Results Hgb 14.8 g/dL (14.1-18.0) 09/26/18 15:42 Hct 45.9 % (42.0-52.0) 09/26/18 15:42 Plt Count 375 K/mm3 (142-424) 09/26/18 15:42 BUN 13 mg/dL (7-18) 09/26/18 15:42 Creatinine 1.07 mg/dL (0.70-1.30) 09/26/18 15:42 Estimated Creat Clear 82 mL/min (50-200) 09/26/18 15:42 Was VTE Risk Assessment Performed: Yes VTE Score: 3 VTE Risk Level: Low Risk - Prophylaxis VTE Prophylaxis Ordered?: Yes Types of VTE Prophylaxis: TEDS Knee High Location of Applied Device: Bilateral Lower Extremeties - VTE Diagnosis Confirmed Treatment or plan recommended: Continue Current Treatment
--- NOTE | 2018-09-27 10:10 | H&P/Discharge Summary ---
General - General Admission date:: 09/26/18 Discharge date: 09/27/18 *Admission Date: 09/26/18 *Chief complaint: possible sz *History of present illness: this wm was at pcp office for eval of headache - pt reports he has been having ongoing valera - no hx of sz and he reports having possible sz episode after blood draw at office - he was sent to ed for eval -w onset tonic clonic seizure today, no injury, no fever, no pain, speech fluent, hx migraines and htn pt has been having valera for some time but more freq lately [facility] History I have reviewed the patient's past medical history: Yes Medical History: Reports:: Anxiety, Depression, Hypertension, Migraine Denies:: Cancer, Diabetes Mellitus Type 1, Diabetes Mellitus Type 2, Internal Pacemaker, Lung Disease, MRSA, Seizures *Have you ever received a pneumonia vaccine?: No *Have you received a flu vaccine this season?: No Other Medical History: Reports: Arthritis, Sinus Problems. Denies: Blood Transfusion Reaction Laterality Cases: Bilateral: Myringotomy (Ear Tubes), Tonsillectomy, Other Other Surgeries: Yes: Cholecystectomy, EGD, Other (Geovanni tendon repair in feet). No: Pacemaker Amputation: No Fractures: No - *Social History Educational Level: Completed High School Smoking Status: Never smoker Alcohol Intake: never Alcohol Intake Frequency:: other Substance Use Type: denies use *Occupational Status:: unemployed Housing: house Household Members: family *Travel in the last 8 weeks: None - Psychiatric History Expresses thoughts of harming self/others: None Suicide Plan Description: No Plan Pschychiatric History:: Reports:: Anxiety, Depression Family Hx:: Coronary Artery Disease, Diabetes, Heart Attack, Stroke Review of Systems - Review of Systems Review of systems:: pertinent systems reviewed and negative unless documented below - Constitutional Denies fever(s) - Eyes Denies change in vision - ENT Denies sore throat - *Cardiovascular Denies shortness of breath - *Respiratory Denies cough, Denies coughing up blood - *Gastrointestinal Denies vomiting blood - *Genitourinary Denies blood in urine - *Musculoskeletal Denies joint pain, Denies joint swelling - Integumentary/Breasts Denies rash - *Neurologic Reports headache(s), Reports seizure-like activity, Denies abnormal speech, Denies localized weakness Exam Vital signs and Labs for Last 24 Hours: Temp Pulse Resp BP Pulse Ox 97.7 F 74 18 137/80 97 09/27/18 07:43 09/27/18 07:43 09/27/18 07:43 09/27/18 07:43 09/27/18 07:43 Laboratory Results - last 24 hr 09/26/18 15:42: WBC 14.5 H, RBC 5.49, Hgb 14.8, Hct 45.9, MCV 83.5, MCH 27.0, MCHC 32.3, RDW 14.1, Plt Count 375, MPV 7.5, Neut % (Auto) 72.6, Lymph % (Auto) 17.8, [place] % (Auto) 6.7, Eos % (Auto) 1.7, Baso % (Auto) 1.1, Neut # (Auto) 10.5 H, Lymph # (Auto) 2.6, [place] # (Auto) 1.0, Eos # (Auto) 0.2, Baso # (Auto) 0.2 09/26/18 15:42: Sodium 138, Potassium 3.6, Chloride 98, Carbon Dioxide 30, Anion Gap 13.6, BUN 13, Creatinine 1.07, Estimated Creat Clear 82, Estimated GFR 76, Est GFR ( Amer) 92, Glucose 109 H, Calcium 8.8, Total Bilirubin 0.4, AST 30, ALT 63, Alkaline Phosphatase 119 H, Troponin I < 0.02, Total Protein 8.6 H, Albumin 3.7, Globulin 4.9 H, Albumin/Globulin Ratio 0.8 L, Salicylates 2.4 L, Acetaminophen 0 L, Plasma/Serum Alcohol 0 09/26/18 15:42: Lactate 1.1 09/26/18 17:06: Urine Opiates Screen Negative, Urine Methadone Screen Negative, Ur Barbituates Screen Negative, Ur Phencyclidine Scrn Negative, Ur Amphetamines Screen Negative, U Benzodiazepines Scrn Negative, Urine Cocaine Screen Negative, U Marijuana (THC) Screen Negative I & O for Last 24 hours: Intake & Output 09/24/18 09/25/18 09/26/18 09/27/18 11:59 11:59 11:59 11:59 Intake Total 473 / 473 Balance 473 / 473 Weight 315 lb 4.176 oz - Constitutional no acute distress, obese - *Routine HEENT Exam Head: Present: normocephalic Eye: Present: EOMI, PERRL ENT: Absent: mucous membranes dry - *Routine Neck Exam Present: supple - *Routine Respiratory Exam Present: CTA bilaterally - *Routine Cardiovascular Exam Present: RRR, murmur - *Routine Abdominal Exam Present: soft - *Routine Extremities Exam Present: full ROM - *Routine Skin Exam Present: intact - *Routine Neurological Exam Present: alert, oriented X3, CN II-XII intact - Routine Psychiatric Exam Present: normal affect Hospital Course Hospital Course: pt without sz or any focal neuro changes with stable labs and neg ct Results Labs on day of discharge: Labs from last 24 hours 09/26/18 09/26/18 09/26/18 17:06 15:42 15:42 WBC RBC Hgb Hct MCV MCH MCHC RDW Plt Count MPV Neut % (Auto) Lymph % (Auto) [place] % (Auto) Eos % (Auto) Baso % (Auto) Neut # (Auto) Lymph # (Auto) [place] # (Auto) Eos # (Auto) Baso # (Auto) Sodium 138 Potassium 3.6 Chloride 98 Carbon Dioxide 30 Anion Gap 13.6 BUN 13 Creatinine 1.07 Estimated Creat Clear 82 Estimated GFR 76 Est GFR ( Amer) 92 Glucose 109 H Lactate 1.1 Calcium 8.8 Total Bilirubin 0.4 AST 30 ALT 63 Alkaline Phosphatase 119 H Troponin I < 0.02 Total Protein 8.6 H Albumin 3.7 Globulin 4.9 H Albumin/Globulin Ratio 0.8 L Salicylates 2.4 L Urine Opiates Screen Negative Urine Methadone Screen Negative Acetaminophen 0 L Ur Barbituates Screen Negative Ur Phencyclidine Scrn Negative Ur Amphetamines Screen Negative U Benzodiazepines Scrn Negative Urine Cocaine Screen Negative U Marijuana (THC) Screen Negative Plasma/Serum Alcohol 0 09/26/18 15:42 WBC 14.5 H RBC 5.49 Hgb 14.8 Hct 45.9 MCV 83.5 MCH 27.0 MCHC 32.3 RDW 14.1 Plt Count 375 MPV 7.5 Neut % (Auto) 72.6 Lymph % (Auto) 17.8 [place] % (Auto) 6.7 Eos % (Auto) 1.7 Baso % (Auto) 1.1 Neut # (Auto) 10.5 H Lymph # (Auto) 2.6 [place] # (Auto) 1.0 Eos # (Auto) 0.2 Baso # (Auto) 0.2 Sodium Potassium Chloride Carbon Dioxide Anion Gap BUN Creatinine Estimated Creat Clear Estimated GFR Est GFR ( Amer) Glucose Lactate Calcium Total Bilirubin AST ALT Alkaline Phosphatase Troponin I Total Protein Albumin Globulin Albumin/Globulin Ratio Salicylates Urine Opiates Screen Urine Methadone Screen Acetaminophen Ur Barbituates Screen Ur Phencyclidine Scrn Ur Amphetamines Screen U Benzodiazepines Scrn Urine Cocaine Screen U Marijuana (THC) Screen Plasma/Serum Alcohol DS: Diagnosis - Discharge Diagnosis (1) Headache Status: Acute (2) Epileptic seizure Status: Acute (3) Obesity Status: Acute Discharge Medications - Medications for Discharge Home Medication List at Discharge: Continued Omeprazole [Omeprazole 40mg Capsule] 40 mg PO DAILY Losartan/Hydrochlorothiazide [Hyzaar 100-12.5 Tablet] 1 tab PO DAILY Ergocalciferol (Vitamin D2) [Drisdol] 50,000 unit PO WEEKLY Cholecalciferol (Vitamin D3) [Vitamin D3 50,000 unit Cap] 50,000 unit PO WEEKLY SUMAtriptan succinate [Sumatriptan Succinate] See Rx Instructions PO DIRECTED Propranolol HCl [Propranolol HCl ER] 120 mg PO DAILY Fluoxetine HCl [Prozac] 40 mg PO DAILY Discontinued ibuprofen 800 mg tablet 800 mg PO BID #60 tab
== END 2018-09-27 13:15 | disposition home or self-care (01) ==
LOC: 2ND 15:11 → ER 15:11 → 2ND 20:03
PROVIDERS: ADMIT Family Medicine; ATTEND Emergency Medicine
DX: G43.909 Migraine, unspecified, not intractable, without status migrainosus; R51 Headache; I10 Essential (primary) hypertension; Z79.899 Other long term (current) drug therapy; E66.9 Obesity, unspecified; G40.909 Epilepsy, unspecified, not intractable, without status epilepticus
CPT/HCPCS: 70450; 71010; 71045; 80053; 80305; 80329; 83605; 84484; 85025; 87040; 93005; 96365; 96367; 99284; G0378; J1953

== ENCOUNTER 2018-10-01 10:00 | Outpatient (RCR) | payer MEDICAID, SELFPAY ==
--- NOTE | 2018-08-02 15:13 | HMH.PTOPEV ---
PT Outpatient Evaluation Rehab PT Outpatient Evaluation Start: 08/02/18 14:52 Freq: Status: Active Protocol: Document 08/02/18 14:54 PHORNE (Rec: 08/02/18 15:11 PHORNE [id number]) Electronically Signed By Sixto Carrillo, PT 08/02/18 14:54 Outpatient Therapy Subjective History Subjective History Pt is 43 yowm who presents with c/o continued pain, edema , and stiffness ~ 7 wks S/P Posterior tibial tendon repair with syndesmosis repair and ligament repairs medial and lateral. He presents in cam walker and reports he is allowed to begin WB'ing next week. He c/o failry constant pain with intermittent shooting pains near his incision. He reports hx of HTN , tachycardia, and CCY Chief Complaint Pain Stiff Swelling Symptom Type Ache Throb Sharp Numbness Tingling Shooting Symptoms Relieved By Nothing Symptoms Aggravated By Standing Physical Activity Prior Functional Limitations None Current Functional Limitations Driving Recreation Activity Walking Symptom Description Constant but Variable Level of pain today (0-10) 6 Pain scale - at its worst (0-10) 10 Ankle/Foot Eval Palpation Tenderness left Ankle/Foot Palpation Findings Tenderness Ankle/Foot Palpation Overall Comment medial ankle throughout, forefoot throughout ATF TTP negative PTF TTP negative CF TTP negative ROM Ankle/Foot Dorsiflexion w/Knee Extended -20 Active Range Motion (degrees) Ankle/Foot Dorsiflexion w/Knee Extended -8 Passive Range (degrees) Ankle/Foot Plantar Flexion Active Range 0-45 of Motion (degrees) Ankle/Foot Plantar Flexion Passive Range 0-45 of Motion (degrees) Ankle/Foot Eversion Active Range of 0-8 Motion (degrees) Ankle/Foot Eversion Passive Range of 0-18 Motion (degrees) Ankle/Foot Inversion Active Range of 0-24 Motion (degrees) Ankle/Foot Inversion Passive Range of 0-36 Motion (degrees) MMT Ankl
--- NOTE | 2018-09-03 09:36 | HMH.RHREAS ---
[facility] Reass[facility] Rehab OP Re-assessment Start: 09/03/18 09:29 Freq: Status: Active Protocol: Document 09/03/18 09:29 ROBE (Rec: 09/03/18 09:36 PHORTAHO [id number]) Electronically Signed By Sixto Carrillo, PT 09/03/18 09:29 Rehab Re-assessment Subjective Subjective Pt reports pain is decreased overall, 4/10 today. Objective Objective Notes Left ankle AROM: DF= -3, PF 0- 48, INV= 0-33, EVER= 0-15 Left ankle MMT: DF= 2+/5, PF= 4+/5, INV= 4/5, EVER= 4/5 Assessment Progress Assessment Slower Than Expected Assessment Notes Improving AROM, but patient continues to have poor gait pattern and just stopped wearing his cam walker over the past 2-3 days. Patient goals met ST,2,5,6,7 LTG: none Goals Not Met ST,4 LT,2,3,4,5 ,6,7 Revised Goals none Plan Plan Continue per initial POC. Frequency of Therapy 2x/wk Duration of therapy 8 wks Time and Billing Re-Eval Time 15 Re-Eval Billing Units 1 PHYSICIAN CERTIFICATION: I certify the specified therapy services for Danilo Proctor are required, authorized, and reviewed every 30 days.
== END 2018-10-01 10:05 | disposition home or self-care (01) ==
LOC: PT 10:00
PROVIDERS: Visit Provider Podiatrist
DX: Z98.890 Other specified postprocedural states (principal); R60.0 Localized edema; T81.31XA Disruption of external operation (surgical) wound, not elsewhere classified, initial encounter
CPT/HCPCS: 97010; 97014; 97016; 97035; 97110; 97112; 97140; 97163; 97164; G0283

== ENCOUNTER → 2018-12-04 10:40 | Outpatient (CLI) | payer MEDICAID, SELFPAY ==
--- NOTE | 2018-12-04 10:40 | CA_ITS ---
PROCEDURE: 2-D M-mode and color Doppler study TDS LIMITED SECONDARY OBESITY INDICATIONS FOR THE TEST: Chest pain COPD Heart Murmur Tobacco Smoking Palpitations Fatigue Syncope Edema HypertensionXDiabetes Mellitus Rheumatic Fever SOBXDOEXObesityXHyperlipidemia Family History HD Additional History ABN EKG,TACHYCARDIA PATIENT INFORMATION HEIGHT: 68 WEIGHT:323 GENDER: Male B/P:133/109 2-D/M-MODE INTERPRETATION: 2-D MEASUREMENTS OBSERVED VALUES IN CMS Right Ventricular Dimension (RVDd) 2.1 Interventricular Septum (Thickness)(IVsd) .9 Left Ventricular Internal Dimensions(LVIDd) 5.2 Left Ventricular Posterior Wall (Thickness)(LVPWd) .9 Aortic Root 3.5 Aortic Cusp Separation 2.0 Left Atrial Dimensions (LAD) 3.2 2D 1. Technically difficult study because of the patient's factor and poor acoustic windows 2. Left atrium is mildly enlarged, left ventricle is normal size, mild concentric left ventricular hypertrophy, visually estimated ejection fraction 55% with no regional wall motion abnormality, endocardial surfaces are poorly visualized. 3. The right atrium and right ventricle are mildly enlarged with normal contractility. 4. The aortic valve is minimally thickened and fibrosed. 5. The mitral and tricuspid valve are grossly normal. 6. The pulmonic valve is poorly visualized. 7. No significant pericardial effusion noted. DOPPLER INTERROGATION: Doppler interrogation of the aortic, mitral and tricuspid valvular presence of mild mitral and tricuspid regurgitation, tricuspid regurgitation jet velocity is inadequate for calculation of the right ventricular systolic pressure, diastolic parameters are inconclusive. CONCLUSION: 1. Normal left ventricular size, mild concentric left ventricular hypertrophy, visually estimated ejection fraction 55% with no obvious regional wall motion abnormality, diastolic parameters are inconclusive. 2. Mild mitral and tricuspid regurgitation 3. No significant pericardial effusion noted.
[2018-12-04 13:53] LABS: Anion Gap 11.9 mEq/L (5-15); Blood Urea Nitrogen 13 mg/dL (7-18); Calcium 8.4 mg/dL (8.5-10.1); Carbon Dioxide 28 mmol/L (21.0-32.0); Chloride 103 mmol/L (98-107); Creatinine,Serum 1.12 mg/dL (0.70-1.30); Estimated Glomerular Filt Rate 72 ml/min (>60); GFR (African American) 87 ML/MIN (>60); Glucose 150 mg/dL (74-106); Potassium 3.9 mmoL/L (3.5-5.1); Sodium 139 mmol/L (136-145)
== END ==
PROVIDERS: Internal Medicine Cardiovascular Disease; PCP Nurse Practitioner Family; Visit Provider Internal Medicine
DX: I10 Essential (primary) hypertension (principal); R06.09 Other forms of dyspnea; R94.31 Abnormal electrocardiogram [ECG] [EKG]; E66.9 Obesity, unspecified; G47.9 Sleep disorder, unspecified; R06.83 Snoring
CPT/HCPCS: 36415; 80048; 93306; 93308

== ENCOUNTER → 2019-01-22 13:24 | Outpatient (CLI) | payer MEDICAID, SELFPAY ==
--- NOTE | 2019-01-22 13:26 | US_ITS ---
APPROVED REPORT Indications Risk Factors Hypertension Obesity Pressures/Indices Right Indices Left Indices Brachial 162.00 mmHg Brachial 162.00 mmHg Low Thigh 0.00 mmHg 0.00 Low Thigh 0.00 mmHg 0.00 Calf 201.00 mmHg 1.24 Calf 202.00 mmHg 1.25 Ankle(PT) 192.00 mmHg 1.19 Ankle(PT) 211.00 mmHg 1.30 Ankle(DP) 184.00 mmHg 1.14 Ankle(DP) 191.00 mmHg 1.18 Digit 194.00 mmHg 1.20 Digit 209.00 mmHg 1.29 Findings RT JESSE=1.2 LT JESSE=1.3 RT TBI=1.2 LT TBI=1.3 Normal pulses Normal waveforms Conclusion NORMAL Electronically signed by : Devin Paz MD 01/23/2019 11:09:59
== END ==
PROVIDERS: PCP Nurse Practitioner Family; Visit Provider Podiatrist
DX: R09.89 Other specified symptoms and signs involving the circulatory and respiratory systems (principal)
CPT/HCPCS: 93923

== ENCOUNTER → 2019-01-29 08:37 | Outpatient (CLI) | payer MEDICAID, SELFPAY ==
--- NOTE | 2019-01-29 08:43 | MR_ITS ---
PROCEDURE: MR FOOT LT WO/W CON CLINICAL INDICATION: postop pain, impingement/entrapment of posterior tibialis nerve/tendinitis. FDL tendon tear, posterior tibial tendon dysfunction Pain on the medial side of the foot along the plantar surface. COMPARISON: FOOTLTWW MR foot LT wo/w con from 03/15/2018 TECHNIQUE: Multiplanar multi echo sequences are performed without and with gadolinium enhancement FINDINGS: No bone marrow edema or fractures are evident. The tibiofibular ligaments and talofibular ligaments appear intact. The ATFL appears intact. There is a small focus of increased T2 signal involving the posterior tibialis tendon best seen on axial STIR image series 5, image 6. There is some thickening of the posterior tibialis tendon and a small amount of fluid at the tendon sheath. These findings are suspicious for partial tear/tendinitis/tendinosis. There is enhancement of the distal aspect of the posterior tibialis tendon with some enhancement of the soft tissues adjacent to the tendon consistent with tendinitis and a possible partial tear. The flexor hallucis longus and flexor digitorum longus have an unremarkable appearance as do the peroneal tendons. There is an area of decreased T2 signal involving the peroneal longus tendon just superficial to the cuboid and may be postsurgical in nature. The extensor tendons and Achilles tendon have an unremarkable appearance. The deltoid ligament appears intact. There is a mild degree of motion artifact which somewhat obscures fine detail. IMPRESSION: 1. Abnormal appearance of the posterior tibialis tendon. At and below the level of medial malleolus the tendon is thickened with slight increased T2 signal suggesting tendinosis or partial tear. Distally the tendon is thickened with increased T2 signal and enhancement consistent with tendinitis with possible partial tear. 2. Suspect postsurgical changes of the peroneal longus tendon and ATFL. Dictated by: Devin Paz MD 02/06/2019 09:18 Electronically signed by Devin Paz MD in [place] 02/06/2019 09:18
--- NOTE | 2019-01-29 10:45 | HMH.ITSHM ---
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 []BISOPROLOL FUMARATE BUPROPION CHOLECALCIFEROL ERGOCALCIFEROL FLUTICASONE PROPIONATE LOSARTAN MECLIZINE OMEPRAZOLE SUMATRIPTAN
== END ==
PROVIDERS: PCP Nurse Practitioner Family; Visit Provider Podiatrist
DX: G57.52 Tarsal tunnel syndrome, left lower limb (principal); M76.822 Posterior tibial tendinitis, left leg; Z98.890 Other specified postprocedural states
CPT/HCPCS: 73720; A9576

== ENCOUNTER → 2019-02-10 14:23 | Outpatient (POV) | payer MEDICAID, SELFPAY | PROVIDERS: Visit Provider Specialist | DX: G57.52 Tarsal tunnel syndrome, left lower limb (principal); M79.605 Pain in left leg; M79.604 Pain in right leg; R20.2 Paresthesia of skin | CPT/HCPCS: 95886; 95909 ==

== ENCOUNTER 2019-03-18 09:47 | Outpatient (RCR) | payer MEDICAID, SELFPAY ==
--- NOTE | 2019-03-18 10:57 | HMH.PTOPEV ---
PT Outpatient Evaluation Rehab PT Outpatient Evaluation Start: 03/18/19 10:06 Freq: Status: Active Protocol: Document 03/18/19 10:06 TERESE (Rec: 03/18/19 10:57 TERESE [id number]) Electronically Signed By Harjeet Keita PT 03/18/19 10:06 Outpatient Therapy Subjective History Subjective History This is the initial Physical Therapy evaluation for Danilo Proctor. Pt is a 43 y/o male referred to PT for c/o L foot ankle pain and paresthesia. Pt reports he had ankle surgery for tendon tear . Pt reports he had physical therapy for ~ 2 months, with increased ROM and strength but has continued to have pain. Most noteably burning in medial arch/sole and tingling in toes. Pt also reports swelling across top of foot some days. Chief Complaint Pain,Paresthesia Symptom Type Sharp,Stabbing,Burning, Tingling,Shooting,Other Symptoms Relieved By Rest/Positioning Symptoms Aggravated By Standing,Physical Activity, Walking Prior Functional Limitations None Current Functional Limitations Housework,Standing,Recreation Activity,Walking,Stairs Symptom Description Constant but Variable Level of pain today (0-10) 4 Pain scale - at its best (0-10) 2 Pain scale - at its worst (0-10) 8 Lumbopelvic Eval Special Tests Sciatic Nerve Tension Test Positive Left Ankle/Foot Eval Gait Observation General Gait Pattern Observation Antalgic Gait Assistive Device Ambulation Assistive Device None Palpation Tenderness left Ankle/Foot Palpation Findings Tenderness,Trigger Point Ankle/Foot Palpation Overall Comment TTP inferior to medial scar and on med/lat maleolli. ROM Ankle/Foot Dorsiflexion w/Knee Extended 5 Active Range Motion (degrees) Ankle/Foot Plantar Flexion Active Range 50 of Motion (degrees) Ankle/Foot Eversion Active Range of 20 Motion (degrees) Ankle/Foot Inversion Active Range of 30 Motion (degrees) Ankle/Foot ROM Limitations Soft Tissue Tightness MMT Ankle Dorsiflexion Strength Grade 5 Normal Ankle Plantarflexion Strength Grade 5 Normal Foot Eversion Strength Grade 5 Normal Foot Inversion Strength Grade 4 Good Special Tests Ankle Anterior Drawer Test Negative Left Ankle Eversion Paula
== END 2019-03-18 09:50 | disposition home or self-care (01) ==
LOC: PT 09:47
PROVIDERS: Visit Provider Podiatrist
DX: M76.822 Posterior tibial tendinitis, left leg (principal); G57.52 Tarsal tunnel syndrome, left lower limb
CPT/HCPCS: 97163

== ENCOUNTER → 2019-04-09 09:25 | Outpatient (CLI) | payer MEDICAID, SELFPAY ==
[2019-04-09 10:19] LABS: Hemoglobin A1C 5.7 % (0.0-7.0)
== END ==
PROVIDERS: Visit Provider Nurse Practitioner Psychiatric/Mental Health
DX: Z79.899 Other long term (current) drug therapy (principal)
CPT/HCPCS: 36415; 83036

== ENCOUNTER → 2019-07-03 09:22 | Outpatient (CLI) | payer MEDICAID, SELFPAY ==
--- NOTE | 2019-07-03 09:25 | CA_ITS ---
APPROVED REPORT Right Upper Extremity Venous Study for DVT. Personnel Psychologist: Yojana Henry RVT Indications Upper Extremity Pain: Right Pain right bicep X 2 wks, NKI Risk Factors Prior Phlebitis/DVT Obesity Vein Imaging IJV (R): Normal phasic flow is seen. Normal flow, augmentation and compression is seen. No evidence of Deep Vein Thrombosis. No abnormalities are demonstrated. SCV (R): Normal phasic flow is seen. Normal flow, augmentation and compression is seen. No evidence of Deep Vein Thrombosis. No abnormalities are demonstrated. Axillary (R): Normal phasic flow is seen. Normal flow, augmentation and compression is seen. No evidence of Deep Vein Thrombosis. No abnormalities are demonstrated. Brachial (R): Compressible Basilic (R): Compressible Cephalic (R): Compressible Radial (R): Compressible Ulnar (R): Compressible Conclusion Study suggests no evidence of DVT in the right upper extremity. Study suggests no evidence of SVT in the right upper extremity. Critical Notification Physician Notified Date: 07/03/2019 Time: 09:58 Physician Name: Shyla De Leon's office Electronically signed by : Devin Paz MD 07/04/2019 17:32:02
== END ==
PROVIDERS: PCP Nurse Practitioner Family; Visit Provider Physician Assistant
DX: M79.601 Pain in right arm (principal)
CPT/HCPCS: 93971

== ENCOUNTER → 2019-08-11 07:55 | Outpatient (POV) | payer MEDICAID, SELFPAY | PROVIDERS: PCP Emergency Medicine; Visit Provider Specialist | DX: M79.601 Pain in right arm (principal) | CPT/HCPCS: 95886; 95908 ==

== ENCOUNTER → 2019-09-01 08:41 | Outpatient (CLI) | payer MEDICAID, SELFPAY ==
--- NOTE | 2019-09-01 08:45 | XR_ITS ---
PROCEDURE: XR WRIST RT MIN 3V CLINICAL INDICATION: right wrist pain/ CTS COMPARISON: No exams were available for comparison FINDINGS: There is no acute fracture dislocation or other focal bony lesion. Joint spaces are preserved. IMPRESSION: No acute findings. Dictated by: Zack Ny 09/01/2019 11:06 Electronically signed by Zack Ny in [facility] 09/01/2019 11:06
--- NOTE | 2019-09-01 09:33 | XR_ITS ---
PROCEDURE: XR SHOULDER RT MIN 2V CLINICAL INDICATION: rt shoulder pain COMPARISON: No exams were available for comparison FINDINGS: There is no acute fracture dislocation. There is mild acromioclavicular joint arthropathy with subchondral cysts in the distal clavicle and subchondral sclerosis. IMPRESSION: No acute findings. Dictated by: Zack Ny 09/01/2019 11:18 Electronically signed by Zack Ny in [facility] 09/01/2019 11:18
== END ==
PROVIDERS: PCP Emergency Medicine; Visit Provider Orthopaedic Surgery
DX: M25.531 Pain in right wrist (principal); M25.511 Pain in right shoulder
CPT/HCPCS: 73030; 73110

== ENCOUNTER → 2020-06-24 11:23 | Outpatient (CLI) | payer MEDICAID, SELFPAY ==
--- NOTE | 2020-06-24 11:29 | XR_ITS ---
PROCEDURE: XR LUMBAR SPINE MIN 4V CLINICAL INDICATION: Low back pain COMPARISON: CR [id number] LUMBAR SPINE-2 TO 3 VIEWS from 03/13/2017 FINDINGS: No fracture or dislocation. No lytic or blastic change. There is normal mineralization. The joint spaces are well-preserved. No significant degenerative/arthritic changes. No erosive changes evident. Other findings:None. IMPRESSION: Negative lumbar spine Dictated by: Devin Paz MD 06/24/2020 15:38 Devin Paz MD in [facility] 06/24/2020 15:38
== END ==
PROVIDERS: PCP Physician Assistant; Visit Provider Physician Assistant
DX: M54.5 Low back pain (principal)
CPT/HCPCS: 72110

== ENCOUNTER 2020-07-08 09:00 | Outpatient (RCR) | payer MEDICAID, SELFPAY | END 2020-07-08 09:05 | disposition home or self-care (01) | LOC: PT 09:00 | PROVIDERS: PCP Physician Assistant; Visit Provider Physician Assistant | DX: M54.5 Low back pain (principal) | CPT/HCPCS: 97010; 97014; 97110; 97163; G0283 ==

== ENCOUNTER → 2020-11-16 11:46 | Outpatient (CLI) | payer MEDICAID, SELFPAY ==
--- NOTE | 2020-11-16 12:01 | XR_ITS ---
PROCEDURE: XR FOOT WT BEARING LT 3V CLINICAL INDICATION: left foot pain COMPARISON: CR [id number] XR foot wt bearing RT 3V from 12/27/2017 CR [id number] XR foot wt bearing LT 3V from 12/27/2017 CR [id number] XR foot LT min 3V from 06/14/2018 CR [id number] XR foot wt bearing LT 3V from 07/22/2018 FINDINGS: Prior ORIF distal tibia and fibular fractures. Mild soft tissue swelling. No acute fracture or dislocation. No lytic or blastic lesions. Joint spaces are normal. IMPRESSION: No acute abnormality of the left foot. Dictated by: Silas Broussard MD 11/16/2020 16:13 Silas Broussard MD in [place] 11/16/2020 16:13
[2020-11-16 12:23] LABS: Basophils # 0.2 K/mm3 (0-0.2); Basophils % 1.6 % (0.1-2.0); Eosinophils # 0.2 K/mm3 (0.0-0.4); Eosinophils % 2.1 % (0.1-12.0); Hematocrit 43.3 % (42.0-52.0); Hemoglobin 14.4 g/dL (14.1-18.0); Lymphocytes # 2.5 K/mm3 (0.7-4.5); Lymphocytes % 24.8 % (10-50); Mean Corpuscular HGB Conc 33.3 g/dL (31.8-35.4); Mean Corpuscular Hemoglobin 27.1 pg (27.0-31.2); Mean Corpuscular Volume 81.5 fl (80-94); Mean Platelet Volume 7.6 fl (7.4-10.4); Monocytes # 0.6 K/mm3 (0.1-1.0); Monocytes % 5.7 % (1.7-9.3); Neutrophils # 6.6 K/mm3 (1.8-7.8); Neutrophils % 65.8 % (37.0-80.0); Platelet Count 306 K/mm3 (142-424); Red Blood Count 5.31 M/mm3 (4.60-6.20); Red Cell Distribution Width 14.4 % (11.5-17.5)
[2020-11-16 13:25] LABS: Erythrocyte Sedimentation Rate 16 mm/hr (0-15)
[2020-11-16 13:46] LABS: Chloride 102 mmol/L (98-107); Sodium 139 mmol/L (136-145)
[2020-11-16 13:48] LABS: Alanine Aminotransferase 43 U/L (12-78); Alkaline Phosphatase 116 U/L (38-126); Aspartate Amino Transferase 45 U/L (17-59); Bilirubin,Total 0.6 mg/dl (0.2-1.3); Blood Urea Nitrogen 10 mg/dl (9-20); Estimated Glomerular Filt Rate 106 ml/min (>60); GFR (African American) 128 ML/MIN (>60)
[2020-11-16 13:49] LABS: Albumin Level 4.3 g/dl (3.5-5.0); Albumin/Globulin Ratio 1.3 (1.1-1.8); Calcium 8.6 mg/dl (8.4-10.2); Carbon Dioxide 26 mmol/L (22.0-30.0); Chol/HDL Ratio 3.9 (1-3.5); Cholesterol 182 mg/dl (140-200); Globulin 3.4 g/dL (1.3-3.2); Glucose 82 mg/dl (74-100); HDL Cholesterol 47 mg/dl (40-60); Total Protein,Serum 7.7 g/dl (6.3-8.2); Triglycerides 134 mg/dl (30-150); VLDL Cholesterol 27 mg/dL (0-40)
[2020-11-16 13:57] LABS: C-Reactive Protein 18.8 mg/L (0-4)
[2020-11-16 14:01] LABS: Direct LDL Cholesterol 99.64 mg/dL (100-129)
[2020-11-16 14:22] LABS: Thyroid Stimulating Hormone 1.57 uIU/mL (0.465-4.68)
[2020-11-16 16:16] LABS: Vitamin B12 338 pg/mL (239-931)
== END ==
PROVIDERS: Visit Provider Physician Assistant
DX: M79.672 Pain in left foot (principal); R20.0 Anesthesia of skin; R20.2 Paresthesia of skin; Z79.899 Other long term (current) drug therapy
CPT/HCPCS: 36415; 73630; 80053; 80061; 82607; 84443; 84550; 85025; 85651; 86140

== ENCOUNTER 2020-11-22 11:09 | Emergency (ER) | payer MEDICAID, SELFPAY ==
[2020-11-22 12:40] VITALS: BP 168/98; PULSE 84; RESP 19; TEMP 36.5; O2SAT 98; BMI 52.2
--- NOTE | 2020-11-22 13:31 | HMH.EDUTC ---
[facility] [place] Disposition Clinical Impression: Nausea vomiting and diarrhea Disposition: Home, Self-Care Condition on Discharge: Good Instructions: Diarrhea, Nausea and Vomiting-Adult, Ondansetron Additional Instructions: Drink extra fluids with and between meals. If you have difficulty drinking, try very small amounts of water or suck on ice chips. ? Avoid fruit juices, as these do not replace minerals and can actually increase diarrhea. ? Children and adults can use sports drinks to replenish electrolytes. Younger children and infants should use products formulated for children, like oral rehydration solutions. ? Eat food in small amounts and let your stomach recover. ? Get lots of rest. You may feel tired or weak. ? No greasy or fried foods for the next 24-48 hours BRAT diet Bananas Rice Apples and [place] ? Make sure to drink plenty of liquids ? Return if needed ? Straight to ER if any life threatening symptoms ? Zofran as prescribed ? You was given an outpatient order for diarrhea panel, please collect specimen and bring back to outpatient lab then call back to the [facility] or follow up with family doctor for results ? Follow up with family doctor in the next 48-72 hours if no improvement or any worsening of symptoms Prescriptions: Ondansetron [Zofran 4mg ODT] 4 mg PO TIDP PRN #9 tab PRN Reason: Nausea Transmission Status: Received by [facility] Referrals: Socorro De Leon PA [Primary Care Provider] - As needed Forms: Work/School Release Time of Disposition: 13:35 Medical Decision Making - Jalil Inquiry Pt receiving controlled substance: No Jalil was queried for this patient: No Vital Signs: 11/22/20 12:40 11/22/20 13:42 Temperature 97.7 F 97.7 F Temperature Source Oral Pulse Rate 84 Pulse Rate [Right Brachial] 84 Respiratory Rate 19 19 Blood Pressure 168/98 H Blood Pressure [Right Arm] 168/98 H Blood Pressure Mean [Right Arm] 121 Blood Pressure Source [Right Arm] Automatic Cuff Blood Pressure Position [Right Arm] Sitting 02 Sat by Pulse Oximetry 98 Oxygen Delivery Method Room Air Orders (Tests/Meds): ED MEDICATIONS Discontinued Medications Generic Name Dose Route Start Last Admin Trade Name Freq PRN Reason Stop Dose Admin Ondansetron HCl 4 mg 11/22/20 13:32 11/22/20 13:39 Ondansetron 4mg Odt SL 11/22/20 13:33 4 mg ONCE ONE Administration Medical Decision Narrative: no vomiting since arrival [facility] [place] HPI - General Stated complaint: nausea, vomiting Time Seen by Provider: 11/22/20 13:31 Mode of Arrival: Ambulatory Source of Information: Patient Limitations: No Limitations Description of Symptoms (Recalled from Triage Doc. by RN): PATIENT C/O NAUSEA AND DIARRHEA AFTER EATING [employer] LAST NIGHT HEENT Symptoms (Recalled from RN notes): No Resp Symptoms (Recalled from RN notes): No Skin Symptoms (Recalled from RN notes): No MS Symptoms (Recalled from RN notes): No Functional Status (Recalled from RN notes): WNL - History of Present Illness Provider Complaint: Patient states that he and a family member eat at [employer] last night and since both has been having nausea, vomiting and diarrhea State that he is not sure if they eat something bad or if they may have the stomach virus States that he was not able to go to work today due to the vomiting - Related Data Home Medications Medication Instructions Recorded Confirmed Metoprolol Succinate [Metoprolol 25 mg PO DAILY 11/22/20 11/22/20 Succinate 25mg Tablet*] Previous Rx's Medication Instructions Recorded Ondansetron [Zofran 4mg ODT] 4 mg PO TIDP PRN #9 tab 11/22/20 Allergies Allergy/AdvReac Type Severity Reaction Status Date / Time egg Allergy Intermediate Vomiting Verified 11/16/20 10:44 - Worker's Comp Is this a Worker's Comp case?: No [facility] History - Hepatitis A Screen Drug use history?: No High risk sexual behaviors?: No History of sexually transmitted infe
[2020-11-22 13:42] VITALS: BP 168/98; PULSE 84; RESP 19; TEMP 36.5; O2SAT 98
== END 2020-11-22 13:45 | disposition home or self-care (01) ==
PROVIDERS: Emergency Provider Nurse Practitioner; PCP Physician Assistant
DX: R11.2 Nausea with vomiting, unspecified (principal); R19.7 Diarrhea, unspecified
CPT/HCPCS: 99202; G0463

== ENCOUNTER 2021-01-09 09:38 | Emergency (ER) | payer MEDICAID, SELFPAY ==
[2021-01-09 09:50] VITALS: BP 178/108; PULSE 83; RESP 16; TEMP 36.8; O2SAT 96; BMI 60.3
--- NOTE | 2021-01-09 10:17 | HMH.EDUTC ---
[facility] [place] Disposition Clinical Impression: Muscle strain Disposition: Home, Self-Care Condition on Discharge: Good Instructions: Muscle Strain Additional Instructions: Weightbearing as tolerated rest Ice with cold pack for 20 minutes remove may repeat for comfort every hour Ibuprofen every 6 hours as needed for pain or inflammation. If needs something more you can take Tylenol every 4 hours as needed as long as her primary care has told he was okayed for you to take both. If improving any do not need to follow-up you can bring begin exercising 2-3 weeks after injury. Follow-up immediately if new or worsening symptoms or no noticeable improvement over the next 3-5 days. Prescriptions: predniSONE [Prednisone 20mg Tab] 20 mg PO BID #10 tab Prescription Printed Referrals: Socorro De Leon PA [Primary Care Provider] - Forms: Work/School Release Time of Disposition: 11:04 Medical Decision Making - Jalil Inquiry Pt receiving controlled substance: No Vital Signs: 01/09/21 09:50 Temperature 98.3 F Temperature Source Oral Pulse Rate [Right Brachial] 83 Respiratory Rate 16 Blood Pressure [Right Arm] 178/108 H Blood Pressure Mean [Right Arm] 131 Blood Pressure Source [Right Arm] Automatic Cuff Blood Pressure Position [Right Arm] Sitting 02 Sat by Pulse Oximetry 96 Oxygen Delivery Method Room Air Orders (Tests/Meds): ORDERS Category Date Time Status Thoracic spine XR (swimmers) 3 view [XR thoracic spine Exams 01/09/21 10:21 Taken 3V] Stat [facility] [place] HPI - General Chief complaint: Urgent Treatment Center Stated complaint: back pain Time Seen by Provider: 01/09/21 10:18 Mode of Arrival: Ambulatory Source of Information: Patient Limitations: No Limitations Description of Symptoms (Recalled from Triage Doc. by RN): PATIENT C/O BACK PAIN SINCE SUNDAY HEENT Symptoms (Recalled from RN notes): No Resp Symptoms (Recalled from RN notes): No Skin Symptoms (Recalled from RN notes): No MS Symptoms (Recalled from RN notes): Yes Functional Status (Recalled from RN notes): WNL - History of Present Illness Provider Complaint: 45 yr old male presnets for back pain between shoulders. pt states he lifted some heavy bags on and felt a pop since then is having pain between shoulder blades, worse with movement - Related Data Home Medications Medication Instructions Recorded Confirmed Metoprolol Succinate [Metoprolol 25 mg PO DAILY 11/22/20 12/27/20 Succinate 25mg Tablet*] Previous Rx's Medication Instructions Recorded Ondansetron [Zofran 4mg ODT] 4 mg PO TIDP PRN #9 tab 11/22/20 pregabalin 25 mg capsule 25 mg PO BID #60 cap 11/26/20 amoxicillin 875 mg-potassium 1 tab PO BID 10 Days #20 tab 12/27/20 clavulanate 125 mg tablet lisinopril 10 mg tablet 10 mg PO DAILY #30 tab 12/27/20 meclizine 25 mg tablet 25 mg PO TID PRN #30 tab 12/27/20 methylprednisolone 4 mg tablets in 4 mg PO PER PKG DIR 6 Days #21 tab 12/27/20 a dose pack predniSONE [Prednisone 20mg 20 mg PO BID #10 tab 01/09/21 Tab] Allergies Allergy/AdvReac Type Severity Reaction Status Date / Time egg Allergy Intermediate Vomiting Verified 12/27/20 08:33 - Worker's Comp Is this a Worker's Comp case?: No [facility] History - Hepatitis A Screen Drug use history?: No High risk sexual behaviors?: No History of sexually transmitted infection?: No Currently employed?: No Childcare worker?: No Do you have indoor plumbing?: Yes Do you have electricity?: Yes Attestation statement:: This patient has been screened for Hepatitis A risk factors. I have reviewed the patient's past medical history: Yes Medical History: Reports:: Anxiety, Depression, Hypertension, Migraine Denies:: Cancer, Diabetes Mellitus Type 1, Diabetes Mellitus Type 2, Internal Pacemaker, Lung Disease, MRSA, Seizures Other Medical History: Reports: Arthritis, Sinus Problems. Denies: Blood Transfusion Reaction Comment: Anxiety, Depression,Low b
--- NOTE | 2021-01-09 10:21 | XR_ITS ---
PROCEDURE INFORMATION: Exam: XR Thoracic Spine Exam date and time: 01/09/2021 10:21 AM Age: 45 years old Clinical indication: Pain in thoracic spine; Patient HX: Back pain since Sunday TECHNIQUE: Imaging protocol: XR of the thoracic spine. Views: 3 views. COMPARISON: CR TSP THORACIC SPINE-3V SWIMMERS 03/13/2017 12:51 PM FINDINGS: Bones/joints: Normal. No acute fracture. Normal alignment. Soft tissues: Unremarkable. IMPRESSION: No acute findings.
[2021-01-09 11:05] VITALS: BP 178/108; PULSE 83; RESP 16; TEMP 36.8; O2SAT 96
== END 2021-01-09 11:12 | disposition home or self-care (01) ==
PROVIDERS: Emergency Provider Nurse Practitioner Family; PCP Physician Assistant
DX: S29.012A Strain of muscle and tendon of back wall of thorax, initial encounter (principal); X50.0XXA Overexertion from strenuous movement or load, initial encounter; Y92.9 Unspecified place or not applicable; F41.8 Other specified anxiety disorders; I10 Essential (primary) hypertension
CPT/HCPCS: 72072; 99202; G0463

== ENCOUNTER 2021-02-08 09:05 | Emergency (ER) | payer MEDICAID, SELFPAY ==
[2021-02-08 09:16] VITALS: BP 190/109; PULSE 78; RESP 22; TEMP 37; O2SAT 98; BMI 47.9
--- NOTE | 2021-02-08 09:25 | HMH.EDUTC ---
[facility] [place] Disposition Clinical Impression: Dyspnea, Elevated blood pressure reading, Tachycardia Disposition: Still a Patient Condition on Discharge: Fair Referrals: Socorro De Leon PA [Primary Care Provider] - Time of Disposition: 09:31 Medical Decision Making - Medical Records Medical records reviewed: No: I reviewed the patient's medical records. - Jalil Inquiry Pt receiving controlled substance: No Vital Signs: 02/08/21 09:16 Temperature 98.6 F Temperature Source Oral Pulse Rate [Left] 78 Respiratory Rate 22 Blood Pressure [Right Arm] 190/109 H Blood Pressure Mean [Right Arm] 136 02 Sat by Pulse Oximetry 98 Medical Decision Narrative: He was sent to the er due to his symptoms, elevated blood pressure and family history. [facility] [place] HPI - General Stated complaint: elevated bp Time Seen by Provider: 02/08/21 09:25 Mode of Arrival: Ambulatory Source of Information: Patient Limitations: No Limitations Description of Symptoms (Recalled from Triage Doc. by RN): pt c/o of sharp chest pain and pressure, back pain and elevated BP. this has been ongoing on and off since sun. HEENT Symptoms (Recalled from RN notes): No Resp Symptoms (Recalled from RN notes): No Skin Symptoms (Recalled from RN notes): No MS Symptoms (Recalled from RN notes): No Functional Status (Recalled from RN notes): na - History of Present Illness Provider Complaint: He reports that over the past few days he had some pleuritic type chest pain and some periods of feeling like his heart was beating too fast like he has been for a run, but he has not did any activity beforehand. Those symptoms have subsided some, but this morning he woke up with a head ache and feeling like the skin on his face and head was tingling . His blood pressure has been elevated up to around 190/115 since he started feeling like this. He does take blood pressure medication, but he states that usually his blood pressure is good when he checks it at home. His mother of a cva at around age 63 (approx). She had had 20 years of heart and stroke issues before she at that age. His father is essentially healthy other than some hypertension. - Related Data Home Medications Medication Instructions Recorded Confirmed Metoprolol Succinate [Metoprolol 25 mg PO DAILY 11/22/20 01/11/21 Succinate 25mg Tablet*] Previous Rx's Medication Instructions Recorded pregabalin 25 mg capsule 25 mg PO BID #60 cap 11/26/20 lisinopril 10 mg tablet 10 mg PO DAILY #30 tab 12/27/20 meclizine 25 mg tablet 25 mg PO TID PRN #30 tab 12/27/20 predniSONE [Prednisone 20mg 20 mg PO BID #10 tab 01/09/21 Tab] meloxicam 7.5 mg tablet 7.5 mg PO ONCE 30 Days #30 tab 01/11/21 methylprednisolone 4 mg tablets in 4 mg PO PER PKG DIR #21 tab 01/11/21 a dose pack losartan 100 1 tab PO DAILY #30 tab 01/25/21 mg-hydrochlorothiazide 25 mg tablet Allergies Allergy/AdvReac Type Severity Reaction Status Date / Time egg Allergy Intermediate Vomiting Verified 01/11/21 09:36 - Worker's Comp Is this a Worker's Comp case?: No [facility] History - Hepatitis A Screen Drug use history?: No High risk sexual behaviors?: No History of sexually transmitted infection?: No Currently employed?: No Childcare worker?: No Do you have indoor plumbing?: Yes Do you have electricity?: Yes Attestation statement:: This patient has been screened for Hepatitis A risk factors. I have reviewed the patient's past medical history: Yes Medical History: Reports:: Anxiety, Depression, Hypertension, Migraine Denies:: Cancer, Diabetes Mellitus Type 1, Diabetes Mellitus Type 2, Internal Pacemaker, Lung Disease, MRSA, Seizures Other Medical History: Reports: Arthritis, Sinus Problems. Denies: Blood Transfusion Reaction Comment: Anxiety, Depression,Low back pain Laterality Cases: Bilateral: Myringotomy (Ear Tubes), Tonsillectomy, Other Other Surgeries: Yes: No Previous Surgery, Cholecystectomy, EGD, Hernia
--- NOTE | 2021-02-08 09:31 | ECG_ITS ---
APPROVED REPORT Exam: Resting ECG HR:72 bpm ECG Measurements Heart Rate 72 AXES MT 154 P 18 QRSd 82 QRS -23 QT 400 T 15 QTc 438 Conclusion Sinus rhythm with occasional premature ventricular complexes Moderate voltage criteria for LVH, may be normal variant Borderline ECG Electronically signed by : James Kaur MD 02/11/2021 10:57:40
--- NOTE | 2021-02-08 09:39 | HMH.EDCP ---
ED Disposition Clinical Impression: Elevated blood pressure reading, Heart palpitations, Atypical chest pain Dyspnea Qualifiers: Dyspnea type: shortness of breath Qualified Code(s): R06.02 - Shortness of breath Disposition: Still a Patient Condition on Discharge: Good Instructions: DI for Atypical Chest Pain Additional Instructions: Follow-up with your primary care physician in approximately 5 to 7 days even if you feel well. Have your blood pressure medication adjusted. Return to the emergency department if you feel worse in any way. I recommend you discuss an event/Holter secured entrance monitor to try to figure out why you have occasional heart racing. Referrals: Socorro De Leon PA [Primary Care Provider] - 7-14 days - Critical Care Critical Care Time: No Attestation: On 02/08/21, the high probability of a clinically significant, sudden or life threatening deterioration of the following system(s) required my full and direct attention, intervention and personal management. The time I documented below is in addition to time spent performing reported procedures but includes the following listed in this critical care notation. Medical Decision Making - Medical Records Medical records reviewed: Yes: I reviewed the patient's medical records. - Jalil Inquiry Pt receiving controlled substance: No Vital Signs: 02/08/21 09:16 02/08/21 09:45 02/08/21 11:01 Temperature 98.6 F 98.4 F Temperature Source Oral Oral Pulse Rate 73 Pulse Rate [Left] 78 70 Respiratory Rate 22 18 18 Blood Pressure 180/112 H Blood Pressure [Right Arm] 190/109 H 191/112 H Blood Pressure Mean [Right Arm] 136 138 Blood Pressure Source Automatic Cuff Blood Pressure Position Sitting 02 Sat by Pulse Oximetry 98 97 95 Oxygen Delivery Method Room Air Room Air - Lab Data Lab results reviewed: Yes: I reviewed the patient's lab results. Lab Results 02/08/21 09:32: WBC 9.5, RBC 5.20, Hgb 14.6, Hct 45.8, MCV 88.0, MCH 28.0, MCHC 31.8, RDW 14.7, Plt Count 334, MPV 8.1, Neut % (Auto) 71.6, Lymph % (Auto) 18.1, [place] % (Auto) 7.5, Eos % (Auto) 1.4, Baso % (Auto) 1.4, Neut # (Auto) 6.8, Lymph # (Auto) 1.7, [place] # (Auto) 0.7, Eos # (Auto) 0.1, Baso # (Auto) 0.1 02/08/21 09:32: Sodium 140, Potassium 3.5, Chloride 102, Carbon Dioxide 30, Anion Gap 11.5, BUN 10, Creatinine 0.80, Estimated Creat Clear 115, Estimated GFR 106, Est GFR ( Amer) 128, Glucose 96, Calcium 8.5, Total Bilirubin 0.6, AST 38, ALT 30, Alkaline Phosphatase 90, Troponin I < 0.01, Total Protein 8.0, Albumin 4.1, Globulin 3.9 H, Albumin/Globulin Ratio 1.1 Result diagrams: 02/08/21 09:32 02/08/21 09:32 Orders (Tests/Meds): ORDERS Category Date Time Status Troponin I Q3H Lab 02/08/21 12:45 Ordered - Radiology Data #1 Image(s): Chest Image Reviewed: Yes I reviewed the patient's radiology image, Yes I have reviewed radiologist's interpretation Preliminary Findings: Normal/NAD - ECG Data Tracing #1 I reviewed this ECG and interpreted as documented below: EKG was done at 9:32 AM. It shows a sinus rhythm with a rate of 72 bpm there are some criteria for left ventricular hypertrophy. Otherwise there is no evidence of ischemia and or dysrhythmia. - KEVAN Score for Non-Stemi Age of Patient: 40-49 years old Heart Rate: 70-89 bpm Systolic Blood Pressure: 160-199 mmHg Serum Creatinine: 0.80-1.19 mg/dl CHF [place] Class: I-No CHF Other Risk Factors: None Non-Stemi Risk Score: 51 Medical Decision Narrative: The patient's work-up in the emergency department did not reveal any life-threatening or dangerous causes for the patient's symptoms. The patient has a history of essential hypertension. He was hypertensive in the emergency department. There is no evidence for hypertensive emergency. The patient is essentially asymptomatic. He had chest pain 2 days ago. The work-up for this chest pain was unremarkable. His troponin is undetectable. His EKG
--- NOTE | 2021-02-08 09:43 | XR_ITS ---
PROCEDURE: XR CHEST PORTABLE CLINICAL HISTORY: CP Chest pain COMPARISON: CR CXR CHEST(2 VIEWS-NOT PORTABLE) from 02/21/2017 DX CXR2V XR chest 2V from 06/07/2018 CR [id number] XR chest portable from 09/26/2018 FINDINGS: The cardiomediastinal silhouette and pulmonary vascularity are within normal limits. The lungs are clear without infiltrates, suspicious nodules, or pleural effusions. No acute bony abnormalities. IMPRESSION: No acute findings. Dictated by: Devin Paz MD 02/08/2021 11:27 Devin Paz MD in [place] 02/08/2021 11:27
[2021-02-08 09:45] VITALS: BP 191/112; PULSE 70; RESP 18; TEMP 36.9; O2SAT 97; BMI 50.3
[2021-02-08 09:53] LABS: Basophils # 0.1 K/mm3 (0-0.2); Basophils % 1.4 % (0.1-2.0); Eosinophils # 0.1 K/mm3 (0.0-0.4); Eosinophils % 1.4 % (0.1-12.0); Hematocrit 45.8 % (42.0-52.0); Hemoglobin 14.6 g/dL (14.1-18.0); Lymphocytes # 1.7 K/mm3 (0.7-4.5); Lymphocytes % 18.1 % (10-50); Mean Corpuscular HGB Conc 31.8 g/dL (31.8-35.4); Mean Platelet Volume 8.1 fl (7.4-10.4); Monocytes # 0.7 K/mm3 (0.1-1.0); Monocytes % 7.5 % (1.7-9.3); Neutrophils # 6.8 K/mm3 (1.8-7.8); Neutrophils % 71.6 % (37.0-80.0); Platelet Count 334 K/mm3 (142-424); Red Cell Distribution Width 14.7 % (11.5-17.5); White Blood Count 9.5 K/mm3 (4.8-10.8)
[2021-02-08 09:56] LABS: Chloride 102 mmol/L (98-107); Sodium 140 mmol/L (136-145)
[2021-02-08 09:57] LABS: Potassium 3.5 mmoL/L (3.5-5.1)
[2021-02-08 09:59] LABS: Alanine Aminotransferase 30 U/L (12-78); Albumin Level 4.1 g/dl (3.5-5.0); Albumin/Globulin Ratio 1.1 (1.1-1.8); Alkaline Phosphatase 90 U/L (38-126); Anion Gap 11.5 mEq/L (5-15); Aspartate Amino Transferase 38 U/L (17-59); Bilirubin,Total 0.6 mg/dl (0.2-1.3); Blood Urea Nitrogen 10 mg/dl (9-20); Carbon Dioxide 30 mmol/L (22.0-30.0); Creatinine Clearance Estimated 115 mL/min (50-200); Estimated Glomerular Filt Rate 106 ml/min (>60); GFR (African American) 128 ML/MIN (>60); Globulin 3.9 g/dL (1.3-3.2)
[2021-02-08 10:00] LABS: Calcium 8.5 mg/dl (8.4-10.2); Glucose 96 mg/dl (74-100)
[2021-02-08 10:12] LABS: Troponin I < 0.01 ng/ml (0.00-0.034)
[2021-02-08 11:01] VITALS: BP 180/112; PULSE 73; RESP 18; O2SAT 95
[2021-02-08 11:55] VITALS: BP 182/104; PULSE 72; RESP 18; TEMP 36.8; O2SAT 98
== END 2021-02-08 11:56 | disposition home or self-care (01) ==
LOC: UTC 09:20 → ER 09:28
PROVIDERS: Emergency Provider Emergency Medicine; PCP Physician Assistant
DX: R06.09 Other forms of dyspnea (principal); R03.0 Elevated blood-pressure reading, without diagnosis of hypertension; R07.9 Chest pain, unspecified; F41.8 Other specified anxiety disorders; Z79.899 Other long term (current) drug therapy
CPT/HCPCS: 71045; 80053; 84484; 85025; 93005; 99282

== ENCOUNTER 2021-02-12 09:16 | Emergency (ER) | payer MEDICAID, SELFPAY ==
[2021-02-12 09:17] VITALS: BP 137/84; PULSE 102; RESP 20; TEMP 36.9; O2SAT 98; BMI 48.9
--- NOTE | 2021-02-12 09:32 | ECG_ITS ---
APPROVED REPORT Exam: Resting ECG HR:87 bpm ECG Measurements Heart Rate 87 AXES MO 150 P 34 QRSd 84 QRS -26 QT 370 T 33 QTc 445 Conclusion Normal sinus rhythm Moderate voltage criteria for LVH, may be normal variant Borderline ECG Electronically signed by : James Kaur MD 02/13/2021 16:03:25
--- NOTE | 2021-02-12 09:46 | XR_ITS ---
PROCEDURE INFORMATION: Exam: XR Chest Exam date and time: 02/12/2021 9:46 AM Age: 45 years old Clinical indication: Other: Pain; Patient HX: Non smoker, no SX; Additional info: Chest pain TECHNIQUE: Imaging protocol: XR of the chest. Views: 2 views. COMPARISON: CR XR CHEST PORTABLE 02/08/2021 9:58 AM FINDINGS: Lungs: There is a stable left upper lobe granuloma. Pleural spaces: No pleural effusion. No pneumothorax. Heart/Mediastinum: No cardiomegaly. Bones/joints: Unremarkable. IMPRESSION: No acute findings.
[2021-02-12 09:55] LABS: Basophils # 0.2 K/mm3 (0-0.2); Basophils % 1.6 % (0.1-2.0); Eosinophils # 0.1 K/mm3 (0.0-0.4); Eosinophils % 0.9 % (0.1-12.0); Hematocrit 49.5 % (42.0-52.0); Hemoglobin 15.9 g/dL (14.1-18.0); Lymphocytes # 2.3 K/mm3 (0.7-4.5); Lymphocytes % 18.8 % (10-50); Mean Corpuscular Volume 87.6 fl (80-94); Monocytes # 1.1 K/mm3 (0.1-1.0); Monocytes % 8.8 % (1.7-9.3); Neutrophils # 8.4 K/mm3 (1.8-7.8); Neutrophils % 69.8 % (37.0-80.0); Platelet Count 372 K/mm3 (142-424); Red Blood Count 5.65 M/mm3 (4.60-6.20); Red Cell Distribution Width 14.1 % (11.5-17.5)
--- NOTE | 2021-02-12 09:56 | HMH.EDGENADL ---
ED Disposition Clinical Impression: Vasovagal syncope, Syncope due to orthostatic hypotension Disposition: Home, Self-Care Condition on Discharge: Good Instructions: DI for Syncope in Adults (Fainting), DI for Syncope in Children (Fainting) Prescriptions: Losartan/Hydrochlorothiazide [Losartan-Hctz 50-12.5 mg Tab] 1 each PO DAILY 30 Days #30 tab Transmission Status: Pending to [facility] Referrals: Socorro De Leon PA [Primary Care Provider] - - Critical Care Critical Care Time: No Attestation: On 02/12/21, the high probability of a clinically significant, sudden or life threatening deterioration of the following system(s) required my full and direct attention, intervention and personal management. The time I documented below is in addition to time spent performing reported procedures but includes the following listed in this critical care notation. Medical Decision Making - Medical Records Medical records reviewed: Yes: I reviewed the patient's medical records. - Jalil Inquiry Pt receiving controlled substance: No Vital Signs: 02/12/21 09:17 02/12/21 10:39 Temperature 98.4 F Temperature Source Oral Pulse Rate [Orthostatic Lying] 73 Pulse Rate [Orthostatic Standing] 98 H Pulse Rate [Radial] 102 H Respiratory Rate 20 Blood Pressure [Orthostatic Lying] 115/70 Blood Pressure [Orthostatic Standing] 135/84 Blood Pressure [Right Arm] 137/84 Blood Pressure Mean [Right Arm] 101 Blood Pressure Position [Right Arm] Sitting 02 Sat by Pulse Oximetry 98 Oxygen Delivery Method Room Air - Lab Data Lab Results 02/12/21 09:30: WBC 12.0 H, RBC 5.65, Hgb 15.9, Hct 49.5, MCV 87.6, MCH 28.0, MCHC 32.0, RDW 14.1, Plt Count 372, MPV 8.0, Neut % (Auto) 69.8, Lymph % (Auto) 18.8, [place] % (Auto) 8.8, Eos % (Auto) 0.9, Baso % (Auto) 1.6, Neut # (Auto) 8.4 H, Lymph # (Auto) 2.3, [place] # (Auto) 1.1 H, Eos # (Auto) 0.1, Baso # (Auto) 0.2 02/12/21 09:30: Sodium 142, Potassium 3.6, Chloride 99, Carbon Dioxide 31 H, Anion Gap 15.6 H, BUN 19, Creatinine 1.00, Estimated Creat Clear 89, Estimated GFR 82, Est GFR ( Amer) 99, Glucose 92, Calcium 9.1, Total Bilirubin 0.7, AST 28, ALT 33, Alkaline Phosphatase 106, Troponin I < 0.01, Total Protein 8.2, Albumin 4.3, Globulin 3.9 H, Albumin/Globulin Ratio 1.1 02/12/21 09:30: D-Dimer 0.48 02/12/21 09:30: NT-Pro-B Natriuret Pep < 11.1 Result diagrams: 02/12/21 09:30 02/12/21 09:30 Orders (Tests/Meds): ORDERS Category Date Time Status CXR --portable [XR chest portable] Stat Exams 02/12/21 09:46 Stop Req Chest XR 2 view (NOT portable) [XR chest 2V] Stat Exams 02/12/21 09:46 Taken Troponin I Q3H Lab 02/12/21 13:00 Ordered Troponin I Q3H Lab 02/12/21 16:00 Ordered Medical Decision Narrative: Is a 45-year-old male presents the ED today with syncope. Differential diagnosis includes vasovagal syncope, orthostatic syncope, panic attack, cardiogenic syncope. Will obtain CBC CMP troponin, BNP, D-dimer. Chest x-ray. Patient is well-appearing on initial evaluation, no acute distress, ambulatory, vital signs stable no tachycardia no hypoxia normal blood pressure. Etiology of patient's syncope on history is most likely vasovagal, given the prodrome, although patient at risk with left lower extremity boot, obesity for pulmonary embolism. Otherwise would PERC out for this evaluation, pretest probability is low will order D-dimer. ECG without arrythmia or WPW/Brugada pattern. No electrolyte abnormalities BNP less than 11, troponin less than 0.1. Patient is not having chest pain we did update irritated initial troponin. Orthostatics were taken patient had a heart rate increase of greater than 20, will be consistent with the degree of orthostatic hypotension which I do believe is contributing to this patient's presentation. Back to discuss lab and work-up with patient, will decrease his blood pressure medicine to 50 and 12.5 of the losartan hydrochlorot
[2021-02-12 09:59] LABS: Alanine Aminotransferase 33 U/L (12-78); Albumin Level 4.3 g/dl (3.5-5.0); Albumin/Globulin Ratio 1.1 (1.1-1.8); Alkaline Phosphatase 106 U/L (38-126); Anion Gap 15.6 mEq/L (5-15); Aspartate Amino Transferase 28 U/L (17-59); Bilirubin,Total 0.7 mg/dl (0.2-1.3); Blood Urea Nitrogen 19 mg/dl (9-20); Calcium 9.1 mg/dl (8.4-10.2); Carbon Dioxide 31 mmol/L (22.0-30.0); Chloride 99 mmol/L (98-107); Creatinine Clearance Estimated 89 mL/min (50-200); Estimated Glomerular Filt Rate 82 ml/min (>60); GFR (African American) 99 ML/MIN (>60); Globulin 3.9 g/dL (1.3-3.2); Glucose 92 mg/dl (74-100); Potassium 3.6 mmoL/L (3.5-5.1); Sodium 142 mmol/L (136-145); Total Protein,Serum 8.2 g/dl (6.3-8.2)
[2021-02-12 10:03] LABS: D-Dimer 0.48 ug/mL (0.0-0.5)
[2021-02-12 10:12] LABS: NT Pro Brain Natriuretic Pep. < 11.1 pg/mL (0-125); Troponin I < 0.01 ng/ml (0.00-0.034)
[2021-02-12 10:29] VITALS: BP 115/70; PULSE 74; O2SAT 95
[2021-02-12 10:31] VITALS: BP 135/84; PULSE 81; O2SAT 96
[2021-02-12 10:39] VITALS: BP 115/70; BP 135/84; PULSE 73; PULSE 98
[2021-02-12 10:54] VITALS: BP 131/74; PULSE 93; RESP 22; TEMP 36.8; O2SAT 98
== END 2021-02-12 10:56 | disposition home or self-care (01) ==
PROVIDERS: Emergency Provider Student in an Organized Health Care Education/Training Program; PCP Physician Assistant
DX: R55 Syncope and collapse (principal); I95.1 Orthostatic hypotension; F41.8 Other specified anxiety disorders; I10 Essential (primary) hypertension; Z79.899 Other long term (current) drug therapy
CPT/HCPCS: 71045; 71046; 80053; 83880; 84484; 85025; 85378; 93005; 99283

== ENCOUNTER → 2021-02-22 10:50 | Outpatient (CLI) | payer MEDICAID, SELFPAY ==
--- NOTE | 2021-02-22 10:55 | XR_ITS ---
PROCEDURE: XR ANKLE WT BEARING LT MIN 3V CLINICAL INDICATION: pain COMPARISON: CR [id number] XR ankle LT min 3V from 06/14/2018 CR [id number] XR ankle wt bearing LT min 3V from 07/22/2018 FINDINGS: Good alignment status post ORIF distal tib fib syndesmosis with lateral fibular bone plate and translucent fixator. Ankle mortise is preserved. IMPRESSION: Postsurgical changes of the distal tib fib which appears stable Dictated by: Devin Paz MD 02/22/2021 14:41 Devin Paz MD in [place] 02/22/2021 14:41
--- NOTE | 2021-02-22 10:55 | XR_ITS ---
PROCEDURE: XR FOOT WT BEARING RT 3V CLINICAL INDICATION: pain COMPARISON: CR [id number] XR foot wt bearing RT 3V from 12/27/2017 CR [id number] XR foot LT min 3V from 06/14/2018 CR [id number] XR foot wt bearing LT 3V from 07/22/2018 CR XR FOOT WT BEARING LT 3V from 11/16/2020 FINDINGS: No fracture or dislocation. No lytic or blastic change. There is normal mineralization. The joint spaces are well-preserved. No significant degenerative/arthritic changes. No erosive changes evident. Other findings:None. IMPRESSION: No acute findings. Dictated by: Devin Paz MD 02/22/2021 14:38 Devin Paz MD in [place] 02/22/2021 14:38
--- NOTE | 2021-02-22 10:55 | XR_ITS ---
PROCEDURE: XR FOOT WT BEARING LT 3V CLINICAL INDICATION: pain COMPARISON: CR [id number] XR foot wt bearing RT 3V from 12/27/2017 CR [id number] XR foot LT min 3V from 06/14/2018 CR [id number] XR foot wt bearing LT 3V from 07/22/2018 CR XR FOOT WT BEARING LT 3V from 11/16/2020 FINDINGS: No fracture or dislocation. No lytic or blastic change. There is normal mineralization. The joint spaces are well-preserved. No significant degenerative/arthritic changes. No erosive changes evident. Other findings:None. IMPRESSION: No acute findings. Dictated by: Devin Paz MD 02/22/2021 14:42 Devin Paz MD in [place] 02/22/2021 14:42
== END ==
PROVIDERS: PCP Emergency Medicine; Visit Provider Podiatrist
DX: G57.62 Lesion of plantar nerve, left lower limb (principal); M25.372 Other instability, left ankle; M77.41 Metatarsalgia, right foot
CPT/HCPCS: 73610; 73630

== ENCOUNTER 2021-03-17 09:21 | Emergency (ER) | payer MEDICAID, SELFPAY ==
[2021-03-17 09:36] VITALS: BP 121/94; PULSE 94; RESP 18; TEMP 36.4; O2SAT 96; BMI 49.8
--- NOTE | 2021-03-17 10:36 | HMH.EDUTC ---
[facility] [place]ression: Nasal [place] Disposition: Home, Self-Care Condition on Discharge: Good Instructions: Boil Additional Instructions: Apply warm wet compresses to your nose four times per day for 15 minutes as tolerated. Take the antibiotics as directed. Apply the topical medication with a q-tip twice per day for the next 7 days. Take ibuprofen or tylenol for pain. Follow up with your regular doctor. GO TO THE ER FOR ANY WORSENING SYMPTOMS OR CONCERNS I took a culture of your nose. This test will take 3 days to complete. It may tell us what bacteria is causing your symptoms in your nose. If it identifies a bacteria, it will tell which antibiotic is the best to treat it with. So, if you're not getting better make sure you follow up to go over these results and adjust the medication. Prescriptions: Sulfamethoxazole/Trimethoprim [Bactrim DS tablet] 1 each PO BID 10 Days #20 tab Transmission Status: [facility] Mupirocin [Bactroban 2% Ointment 22gm tube] 1 applicatio TP TID 7 Days #1 gm Transmission Status: [facility] Referrals: Socorro De Leon PA [Primary Care Provider] - Time of Disposition: 10:42 Medical Decision Making - Medical Records Medical records reviewed: No: I reviewed the patient's medical records. - Jalil Inquiry Pt receiving controlled substance: No Vital Signs: 03/17/21 09:36 03/17/21 10:45 Temperature 97.6 F 97.6 F Temperature Source Oral Pulse Rate 94 H Pulse Rate [Left] 94 H Respiratory Rate 18 18 Blood Pressure 121/94 H Blood Pressure [Right Arm] 121/94 H Blood Pressure Mean [Right Arm] 103 02 Sat by Pulse Oximetry 96 Orders (Tests/Meds): ORDERS Category Date Time Status Wound Culture and Gram Stain Stat Micro 03/17/21 10:45 Results [facility] [place] - General Stated complaint: right shoulder pain, cough, congestion Time Seen by Provider: 03/17/21 09:35 Mode of Arrival: Ambulatory Source of Information: Patient Limitations: No Limitations Description of Symptoms (Recalled from Triage Doc. by RN): pt c/o of inner nasal pain x3 days. pt thinks he has an abcess inside his nose. pt c/o R shoulder pain x3 months. no injury. pt also c/o a cough that he can't seem to get rid of. HEENT Symptoms (Recalled from RN notes): Yes (upper nose pain) Resp Symptoms (Recalled from RN notes): Yes (cough) Skin Symptoms (Recalled from RN notes): No MS Symptoms (Recalled from RN notes): Yes (R shoulder pain) Functional Status (Recalled from RN notes): na - History of Present Illness Provider Complaint: He states that he is having right ear pain and a cough for the past 2weeks. - Related Data Home Medications Medication Instructions Recorded Confirmed Metoprolol Succinate [Metoprolol 25 mg PO DAILY 11/22/20 02/22/21 Succinate 25mg Tablet*] Previous Rx's Medication Instructions Recorded pregabalin 25 mg capsule 25 mg PO BID #60 cap 11/26/20 lisinopril 10 mg tablet 10 mg PO DAILY #30 tab 12/27/20 meclizine 25 mg tablet 25 mg PO TID PRN #30 tab 12/27/20 predniSONE [Prednisone 20mg 20 mg PO BID #10 tab 01/09/21 Tab] meloxicam 7.5 mg tablet 7.5 mg PO ONCE 30 Days #30 tab 01/11/21 methylprednisolone 4 mg tablets in 4 mg PO PER PKG DIR #21 tab 01/11/21 a dose pack Mupirocin [Bactroban 2% Ointment 1 applicatio TP TID 7 Days #1 gm 03/17/21 22gm tube] Sulfamethoxazole/Trimethoprim 1 each PO BID 10 Days #20 tab 03/17/21 [Bactrim DS tablet] losartan 50 mg-hydrochlorothiazide 1 tab PO DAILY #90 tab 03/17/21 12.5 mg tablet Allergies Allergy/AdvReac Type Severity Reaction Status Date / Time egg Allergy Intermediate Vomiting Verified 02/22/21 09:41 - Worker's Comp Is this a Worker's Comp case?: No [facility] History - Hepatitis A Screen Drug use history?: No High risk sexual behaviors?: No History of sexually transmitted infection?: No Currently
[2021-03-17 10:45] VITALS: BP 121/94; PULSE 94; RESP 18; TEMP 36.4
== END 2021-03-17 10:50 | disposition home or self-care (01) ==
PROVIDERS: Emergency Provider Nurse Practitioner Family; PCP Physician Assistant
DX: J34.0 Abscess, furuncle and carbuncle of nose (principal); R05.1 Acute cough; I10 Essential (primary) hypertension; F41.8 Other specified anxiety disorders; Z79.899 Other long term (current) drug therapy
CPT/HCPCS: 87070; 87186; 87205; 99202; G0463

== ENCOUNTER → 2021-03-24 11:02 | Outpatient (CLI) | payer MEDICAID, SELFPAY ==
[2021-03-24 14:58] LABS: Alanine Aminotransferase 19 U/L (12-78); Albumin Level 4.1 g/dl (3.5-5.0); Albumin/Globulin Ratio 1.4 (1.1-1.8); Alkaline Phosphatase 78 U/L (38-126); Anion Gap 15.5 mEq/L (5-15); Aspartate Amino Transferase 30 U/L (17-59); Bilirubin,Total 0.5 mg/dl (0.2-1.3); Blood Urea Nitrogen 8 mg/dl (9-20); Calcium 9.3 mg/dl (8.4-10.2); Carbon Dioxide 34 mmol/L (22.0-30.0); Chloride 90 mmol/L (98-107); Chol/HDL Ratio 2.8 (1-3.5); Cholesterol 183 mg/dl (140-200); Estimated Glomerular Filt Rate 147 ml/min (>60); GFR (African American) 178 ML/MIN (>60); Globulin 2.9 g/dL (1.3-3.2); Glucose 95 mg/dl (74-100); HDL Cholesterol 66 mg/dl (40-60); Magnesium 2.2 mg/dl (1.6-2.3); Potassium 4.5 mmoL/L (3.5-5.1); Sodium 135 mmol/L (136-145); Triglycerides 86 mg/dl (30-150); VLDL Cholesterol 17 mg/dL (0-40)
[2021-03-24 15:03] LABS: Basophils # 0.1 K/mm3 (0-0.2); Basophils % 1.3 % (0.1-2.0); Eosinophils # 0.1 K/mm3 (0.0-0.4); Eosinophils % 1.1 % (0.1-12.0); Hematocrit 46.2 % (42.0-52.0); Hemoglobin 14.8 g/dL (14.1-18.0); Lymphocytes # 2.3 K/mm3 (0.7-4.5); Lymphocytes % 21.7 % (10-50); Mean Corpuscular HGB Conc 32.1 g/dL (31.8-35.4); Mean Corpuscular Hemoglobin 28.1 pg (27.0-31.2); Mean Corpuscular Volume 87.7 fl (80-94); Mean Platelet Volume 9.2 fl (7.4-10.4); Monocytes # 0.7 K/mm3 (0.1-1.0); Monocytes % 6.6 % (1.7-9.3); Neutrophils # 7.3 K/mm3 (1.8-7.8); Neutrophils % 69.3 % (37.0-80.0); Platelet Count 405 K/mm3 (142-424); Red Blood Count 5.26 M/mm3 (4.60-6.20); Red Cell Distribution Width 13.9 % (11.5-17.5); White Blood Count 10.6 K/mm3 (4.8-10.8)
[2021-03-24 15:09] LABS: Direct LDL Cholesterol 96.34 mg/dL (100-129)
[2021-03-24 15:15] LABS: 25-OH Vitamin D, Total 20.4 ng/mL (30-100); Free T4 (Free Thyroxine) 1.19 ng/dl (0.78-2.19)
[2021-03-24 15:28] LABS: Thyroid Stimulating Hormone 0.78 uIU/mL (0.465-4.68)
== END ==
PROVIDERS: PCP Physician Assistant; Visit Provider Physician Assistant
DX: R00.2 Palpitations (principal)
CPT/HCPCS: 80053; 80061; 82306; 83735; 84439; 84443; 85025; 93225; 93226

== ENCOUNTER → 2021-03-24 14:45 | Outpatient (CLI) | payer MEDICAID, SELFPAY | PROVIDERS: Visit Provider Physician Assistant | DX: I10 Essential (primary) hypertension (principal); M25.562 Pain in left knee; M25.561 Pain in right knee; E55.9 Vitamin D deficiency, unspecified; E66.9 Obesity, unspecified; Z68.42 Body mass index [BMI] 45.0-49.9, adult | CPT/HCPCS: 80053; 80061; 82306; 83735; 84439; 84443; 85025 ==

== ENCOUNTER → 2021-03-30 10:59 | Outpatient (CLI) | payer MEDICAID, SELFPAY ==
--- NOTE | 2021-03-30 11:01 | XR_ITS ---
PROCEDURE: XR KNEE RT 4V CLINICAL INDICATION: bilateral knee pain COMPARISON: Left knee same date FINDINGS: No fracture or dislocation. No lytic or blastic change. There is normal mineralization. The joint spaces are well-preserved. No significant degenerative/arthritic changes. No erosive changes evident. Other findings:None. IMPRESSION: No acute findings. Dictated by: Dr. Juan Dubois MD 03/30/2021 12:20 Dr. Juan Dubois MD in [place] 03/30/2021 12:20
--- NOTE | 2021-03-30 11:01 | XR_ITS ---
PROCEDURE: XR KNEE LT 4V CLINICAL INDICATION: bilateral knee pain COMPARISON: CR XR KNEE RT 4V from 03/30/2021 FINDINGS: No fracture or dislocation. No lytic or blastic change. There is normal mineralization. The joint spaces are well-preserved. No significant degenerative/arthritic changes. No erosive changes evident. Other findings:None. IMPRESSION: No acute findings. Dictated by: Dr. Juan Dubois MD 03/30/2021 12:19 Dr. Juan Dubois MD in [place] 03/30/2021 12:19
== END ==
PROVIDERS: PCP Physician Assistant; Visit Provider Physician Assistant
DX: M25.562 Pain in left knee (principal); M25.561 Pain in right knee
CPT/HCPCS: 73564

== ENCOUNTER → 2021-04-12 11:57 | Outpatient (CLI) | payer MEDICAID, SELFPAY | PROVIDERS: PCP Physician Assistant; Visit Provider Physician Assistant | DX: G47.33 Obstructive sleep apnea (adult) (pediatric) (principal); R06.83 Snoring | CPT/HCPCS: 95806 ==

== ENCOUNTER 2021-04-22 10:36 | Outpatient (RCR) | payer MEDICAID, SELFPAY | END 2021-04-22 11:02 | disposition home or self-care (01) | LOC: PT 10:36 | PROVIDERS: Visit Provider Orthopaedic Surgery | DX: M17.0 Bilateral primary osteoarthritis of knee | CPT/HCPCS: 97760 ==

== ENCOUNTER 2021-05-01 09:45 | Emergency (ER) | payer MEDICAID, SELFPAY ==
[2021-05-01 10:30] VITALS: BP 154/80; PULSE 71; RESP 18; TEMP 36.7; O2SAT 99; BMI 49.8
[2021-05-01 10:50] LABS: UTC Strep Screen (Rapid) Positive (Negative)
--- NOTE | 2021-05-01 11:18 | HMH.EDUTC ---
[facility] [place]: Strep throat Disposition: Home, Self-Care Condition on Discharge: Good Instructions: Strep Throat, DI for Strep Throat, Ondansetron, Amoxicillin Additional Instructions: *Monitor Temp, Over the counter Motrin or Tylenol as directed/as needed Tylenol every 4 hours and Motrin every 6 hours (as long as your family doctor has told you that you can take it) for fever or pain. and straight to ER if unable to lower temp less than 101.0 after medication given *Warm salt water gargles may help to soothe the throat *Throat Lozenges *Warm fluids like tea with honey may help to soothe the throat *Sleep elevated *Humidifier/Vaporizer *If you did not take Penicillin shot or was unable to, start taking antibiotic immediately and make sure that you take it for the FULL length of time although you should start to feel better in 24-48 hours *change toothbrush and toothpaste 24-48 hours after starting to take antibiotics so you do not reinfect yourself Monitor Temp. Tylenol and/or Ibuprofen as needed. ER if fever is no less than 101 despite alternating Tylenol and Ibuprofen * Encourage fluids, water, Gatorade, powerade, pedialyte if infant/toddler/or child *Cold fluids, popsicles and ice cream may feel good on his throat Follow up IMMEDIATELY for new or worsening symptoms or no Noticeable improvement over the next 48-72 hours. 911 for difficulty breathing or swallowing Prescriptions: Amoxicillin [Amoxicillin 500mg Cap] 500 mg PO TID #30 cap [email or web address] Ondansetron [Zofran 4mg ODT] 4 mg PO TIDP PRN #10 tab PRN Reason: Vomiting Transmission Status[email or web address] Referrals: Socorro De Leon PA [Primary Care Provider] - As needed Forms: Work/School Release Time of Disposition: 11:24 Medical Decision Making - Jalil Inquiry Pt receiving controlled substance: No Jalil was queried for this patient: No Vital Signs: 05/01/21 10:30 Temperature 98.1 F Temperature Source Oral Pulse Rate [Right Brachial] 71 Respiratory Rate 18 Blood Pressure [Right Arm] 154/80 H Blood Pressure Mean [Right Arm] 104 Blood Pressure Source [Right Arm] Automatic Cuff Blood Pressure Position [Right Arm] Sitting 02 Sat by Pulse Oximetry 99 Oxygen Delivery Method Room Air - Lab Data Lab results reviewed: Yes: I reviewed the patient's lab results. Lab Results 05/01/21 10:32: Strep Scn Rapid Clinic Positive [facility] [place]PI - General Stated complaint: sore throat, cough, vomiting/diarrhea Time Seen by Provider: 05/01/21 11:18 Mode of Arrival: Ambulatory Source of Information: Patient Limitations: No Limitations Description of Symptoms (Recalled from Triage Doc. by RN): PATIENT C/O COUGH, SORE THROAT, AND VOMITING SINCE YESTERDAY. CHILDREN RECENTLY DIAGNOSED WITH STREP HEENT Symptoms (Recalled from RN notes): Yes Resp Symptoms (Recalled from RN notes): Yes Skin Symptoms (Recalled from RN notes): No MS Symptoms (Recalled from RN notes): No Functional Status (Recalled from RN notes): WNL - History of Present Illness Provider Complaint: Patient states that he has been around his kids and they have had strep throat States that he has been having sore throat cough and vomiting State that started yesterday States that today he wasnt feeling any better so he came in - Related Data Home Medications Medication Instructions Recorded Confirmed Losartan/Hydrochlorothiazide 1 tab PO DAILY 05/01/21 05/01/21 [Losartan-Hctz 50-12.5 mg Tab] Previous Rx's Medication Instructions Recorded Amoxicillin [Amoxicillin 500mg 500 mg PO TID #30 cap 05/01/21 Cap] Ondansetron [Zofran 4mg ODT] 4 mg PO TIDP PRN #10 tab 05/01/21 Allergies Allergy/AdvReac Type Severity Reaction Status Date / Time egg Allergy Intermediate Vomiting Verified 04/26/21 09:52 - Worker's Comp Is this a Worker's Comp case?: No [facility] History - Hepatiti
[2021-05-01 11:38] VITALS: BP 154/80; PULSE 71; RESP 18; TEMP 36.7; O2SAT 99
== END 2021-05-01 11:41 | disposition home or self-care (01) ==
PROVIDERS: Emergency Provider Nurse Practitioner; PCP Physician Assistant
DX: J02.0 Streptococcal pharyngitis (principal); I10 Essential (primary) hypertension; F41.8 Other specified anxiety disorders; Z79.899 Other long term (current) drug therapy
CPT/HCPCS: 87880; 99202; G0463

== ENCOUNTER 2021-05-18 08:30 | Outpatient (RCR) | payer MEDICAID, SELFPAY ==
--- NOTE | 2021-05-03 11:22 | HMH.PTOPEV ---
PT Outpatient Evaluation Rehab PT Outpatient Evaluation Start: 05/03/21 11:10 Freq: Status: Active Protocol: Document 05/03/21 11:10 EMMANUEL (Rec: 05/03/21 11:22 EMMANUEL [id number]) Electronically Signed By Rehan Nickerson, PT 05/03/21 11:10 Outpatient Therapy Subjective History Subjective History Pt reports h/o chronic bilateral knee 'since my 20's' . Pt reports right knee hurts 'and it gives out', and left knee is 'super stiff and painful when I wake up'. Recent Xrays of knees reveal OA. Chief Complaint Pain,Stiff,Swelling,Gives out/ Unstable Symptom Type Ache,Sharp,Dull Symptoms Relieved By Rest/Positioning Symptoms Aggravated By Physical Activity,Walking Prior Functional Limitations Squatting,Walking,Stairs Current Functional Limitations Squatting,Walking,Stairs Symptom Description Constant but Variable Level of pain today (0-10) 5 Pain scale - at its best (0-10) 5 Pain scale - at its worst (0-10) 9 Hip/Knee Eval Gait Observation General Gait Pattern Observation Antalgic Gait,Wide Based Gait Palpation Tenderness bilateral Knee Palpation Finding Tenderness Knee Palpation Overall Comment 3/4 medial jt line, 2-3/4 lateral jt line MMT Hip Flexion Strength Grade 4 Good Hip Abduction Strength Grade 4- Good- Hip Adduction Strength Grade 4- Good- Hip Extension Strength Grade 4 Good Hip External Rotation Strength Grade 4 Good Hip Internal Rotation Strength Grade 4 Good Knee Extension Strength Grade 5 Normal Knee Flexion Strength Grade 5 Normal ROM Knee Flexion Active Range of Motion ( 0-120 degrees) Effusion joint effusion knee exam standard bilateral Mid - Patellar Circumerential Measure ( 48 cm) Special Tests Patellar Grind Test Positive Left,Positive Right Patellar Compression Test Positive Left,Positive Right Outpatient Therapy Assessment Impairments Problems/Impairmments Palpation Tenderness,Impaired Range of Motion,Impaired Strength,Impaired Gait Pattern ,Impaired Walking,Impaired Stair Climbing,Impaired Squatting,Impaired Work Activities,Subjective C/O Pain ,Impaired Self Care/Self Management Prognosis Rehab Potential Good Clinical Impression Consistent with Di
== END 2021-05-18 08:35 | disposition home or self-care (01) ==
LOC: PT 08:30
PROVIDERS: Visit Provider Orthopaedic Surgery
DX: M17.0 Bilateral primary osteoarthritis of knee (principal)
CPT/HCPCS: 97010; 97014; 97110; 97163; G0283

== ENCOUNTER → 2021-06-03 16:22 | Outpatient (CLI) | payer MEDICAID, SELFPAY ==
--- NOTE | 2021-06-03 16:22 | MR_ITS ---
PROCEDURE INFORMATION: Exam: MR Left Lower Extremity Other Than Joint Without and With Contrast; Foot Exam date and time: 06/03/2021 4:22 PM Age: 46 years old Clinical indication: Prior surgery; Surgery date: 6+ months; Surgery type: Tendon repair; Patient HX: Left foot pain TECHNIQUE: Imaging protocol: MR of the Left lower extremity without and with intravenous contrast. Exam focused on the foot. Contrast material: PROHANCE; Contrast volume: 29 ml; Contrast route: IV; COMPARISON: 1. MR FOOT LT WO/W CON 01/29/2019 9:01 AM 2. CR XR ANKLE WT BEARING LT MIN 3V 02/22/2021 11:04 AM FINDINGS: Limitations: Hardware produces susceptibility artifact that obscures the adjacent tissues. Details of surgical history not provided. The large [id number] utilized to image the entire foot and ankle results in proportionally lower anatomic detail. Bones and cartilage: A Tightrope repair of the tibiofibular syndesmosis has associated metal artifact. Postoperative changes are also present in the region of the lateral malleolus and lateral talus consistent with prior ligament repair. There is no acute fracture or dislocation. No aggressive bone lesions are present. There are small dorsal and plantar calcaneal enthesophytes. Joint spaces: Mild effusions involve the first, third, and fourth tarsometatarsal joints. LIGAMENTS: Distal tibiofibular syndesmosis: There are postoperative changes in the region of the syndesmosis. The anterior inferior and posteroinferior tibiofibular ligaments are thickened consistent with prior low grade injury. Anterior talofibular ligament: The anterior talofibular ligament has been repaired and is intact. Calcaneofibular ligament: The calcaneofibular ligament is poorly delineated on this study but appears grossly intact on series 7/images 43-46. Lisfranc ligament: Unremarkable. No evidence of tear. TENDONS: Flexor tendons of foot: Unremarkable. No evidence of tear. Tibialis posterior tendon: The tibialis posterior tendon is heterogeneously thickened having low signal intensity at the level of the midfoot suggesting chronic tendinosis. Peroneal tendons: Moderate increased T2 signal within the peroneus longus tendon is consistent with moderate tendinosis. Extensor tendons of foot: Unremarkable. No evidence of tear. Tibialis anterior tendon: Unremarkable as visualized. Achilles tendon: Moderate thickening and increased T2 signal involves the Achilles tendon. Tarsal canal (Sinus tarsi): The sinus tarsi has normal fat signal. Tarsal tunnel: Unremarkable. Bursae: Focal fluid between the third and fourth metatarsal heads may represent intermetatarsal bursitis. Fluid can be present between the metatarsal heads in asymptomatic patients. Soft tissues: There is a moderate amount of edema in the subcutaneous fat. Plantar fascia: Unremarkable as visualized. IMPRESSION: 1. Intact repaired anterior talofibular ligament. 2. Limited assessment of the calcaneofibular ligament that appears grossly intact. 3. Low-grade injuries of the anterior inferior and posterior inferior tibiofibular ligaments. 4. Fluid between the third and fourth metatarsal heads, suggesting intermetatarsal bursitis. 5. Chronic moderate tendinosis of the tibialis posterior tendon. 6. Moderate tendinosis of the peroneus longus tendon. 7. Moderate Achilles tendinopathy.
== END ==
PROVIDERS: PCP Physician Assistant; Visit Provider Podiatrist
DX: G57.62 Lesion of plantar nerve, left lower limb (principal); R22.42 Localized swelling, mass and lump, left lower limb
CPT/HCPCS: 73720; A9576

== ENCOUNTER 2021-06-15 09:08 | Emergency (ER) | payer MEDICAID, SELFPAY ==
[2021-06-15 10:43] VITALS: BP 151/89; PULSE 95; RESP 18; TEMP 36.7; O2SAT 98; BMI 47.1
--- NOTE | 2021-06-15 11:00 | HMH.EDUTC ---
[facility] [place] Disposition Clinical Impression: Viral syndrome Disposition: Home, Self-Care Condition on Discharge: Good Instructions: DI for Viral Syndrome, Guaifenesin Additional Instructions: *Monitor Temp, Over the counter Motrin or Tylenol as directed/as needed Tylenol every 4 hours and Motrin every 6 hours (as long as your family doctor has told you that you can take it) for fever or pain. and straight to ER if unable to lower temp less than 101.0 after medication given *Warm salt water gargles may help to soothe the throat *Throat Lozenges *Warm fluids like tea with honey may help to soothe the throat *Sleep elevated *Humidifier/Vaporizer Follow up IMMEDIATELY for new or worsening symptoms or no Noticeable improvement over the next 48-72 hours. 911 for difficulty breathing or swallowing You were tested for today for COVID19 your test result should be back in the next 24-48 hours, you may check your results on the [facility] if you have trouble logging on you may call support to help you You was given a handout with instructions for Self Quarantine and Self isolation for while you wait on test results and what to do if they are positive If you are positive the Health Dept will be contacting you also Make sure to take your Vitamins Vit. C Vit D and Zinc if you can take them Referrals: Socorro De Leon PA [Primary Care Provider] - As needed Forms: Work/School Release Medical Decision Making - Jalil Inquiry Pt receiving controlled substance: No Jalil was queried for this patient: No Vital Signs: 06/15/21 10:43 Temperature 98.1 F Temperature Source Oral Pulse Rate [Left] 95 H Respiratory Rate 18 Blood Pressure [Right Arm] 151/89 H Blood Pressure Mean [Right Arm] 109 02 Sat by Pulse Oximetry 98 - Lab Data Lab results reviewed: Yes: I reviewed the patient's lab results. Orders (Tests/Meds): ORDERS Category Date Time Status Covid-19 Nasal PCR ([facility]) Routine Lab 06/15/21 10:28 Received [facility] [place] HPI - General Stated complaint: fever/chills, cough, diaarhea, h/a, congestion Time Seen by Provider: 06/15/21 11:00 Mode of Arrival: Ambulatory Source of Information: Patient Limitations: No Limitations Description of Symptoms (Recalled from Triage Doc. by RN): pt c/o body aches, fever, and GALLARDO since yesterday. HEENT Symptoms (Recalled from RN notes): Yes (GALLARDO) Resp Symptoms (Recalled from RN notes): No Skin Symptoms (Recalled from RN notes): No MS Symptoms (Recalled from RN notes): No Functional Status (Recalled from RN notes): wnl - History of Present Illness Provider Complaint: Patient statse that he started feeling bad yesterday and it hit him suddenly State that he started having body aches chills and fever States that he has continued to feel achy all over and had a headache this morning so he came in to get tested - Related Data Home Medications Medication Instructions Recorded Confirmed Losartan/Hydrochlorothiazide 1 tab PO DAILY 05/01/21 06/13/21 [Losartan-Hctz 50-12.5 mg Tab] Previous Rx's Medication Instructions Recorded methylprednisolone 4 mg tablets in 4 mg PO DAILY #21 tab 05/23/21 a dose pack lidocaine 1.8 % topical patch 2 patch TOPICAL DAILY PRN 30 Days 06/13/21 #30 each Allergies Allergy/AdvReac Type Severity Reaction Status Date / Time egg Allergy Intermediate Vomiting Verified 06/13/21 14:03 - Worker's Comp Is this a Worker's Comp case?: No [facility] History - Hepatitis A Screen Drug use history?: No High risk sexual behaviors?: No History of sexually transmitted infection?: No Currently employed?: No Childcare worker?: No Do you have indoor plumbing?: Yes Do you have electricity?: Yes Attestation statement:: This patient has been screened for Hepatitis A risk factors. I have reviewed the patient's past medical history: Yes Medical History: Reports:: Anxiety, Depression, Hypertension, Migraine, Palpitations Denies:: Cancer, Diabe
[2021-06-15 11:01] LABS: UTC Influenza A Antigen Negative (Negative); UTC Influenza B Antigen Negative (Negative)
[2021-06-15 11:08] VITALS: BP 151/89; PULSE 95; RESP 18; TEMP 36.7
== END 2021-06-15 11:13 | disposition home or self-care (01) ==
PROVIDERS: Emergency Provider Nurse Practitioner; PCP Physician Assistant
DX: U07.1 COVID-19 (principal)
CPT/HCPCS: 87804; 99202; C9803; G0463; U0003; U0005

== ENCOUNTER → 2022-08-29 11:01 | Outpatient (CLI) | payer MEDICAID, SELFPAY ==
[2022-08-29 14:15] LABS: Alanine Aminotransferase 44 U/L (12-78); Albumin Level 4.3 g/dl (3.5-5.0); Albumin/Globulin Ratio 1.2 (1.1-1.8); Alkaline Phosphatase 111 U/L (38-126); Anion Gap 11.2 mEq/L (5-15); Aspartate Amino Transferase 41 U/L (17-59); Bilirubin,Total 0.7 mg/dl (0.2-1.3); Blood Urea Nitrogen 14 mg/dl (9-20); Calcium 8.3 mg/dl (8.4-10.2); Carbon Dioxide 32 mmol/L (22.0-30.0); Chloride 98 mmol/L (98-107); Chol/HDL Ratio 3.9 (1-3.5); Cholesterol 170 mg/dl (140-200); Estimated Glomerular Filt Rate 91 ml/min (>60); GFR (African American) 110 ML/MIN (>60); Globulin 3.5 g/dL (1.3-3.2); Glucose 80 mg/dl (74-100); HDL Cholesterol 44 mg/dl (40-60); Potassium 4.2 mmoL/L (3.5-5.1); Sodium 137 mmol/L (136-145); Total Protein,Serum 7.8 g/dl (6.3-8.2); Triglycerides 88 mg/dl (30-150); VLDL Cholesterol 18 mg/dL (0-40)
[2022-08-29 14:22] LABS: Basophils # 0.1 K/mm3 (0-0.2); Basophils % 1.3 % (0.1-2.0); Eosinophils # 0.1 K/mm3 (0.0-0.4); Eosinophils % 1.4 % (0.1-12.0); Hematocrit 45.4 % (42.0-52.0); Hemoglobin 14.6 g/dL (14.1-18.0); Lymphocytes # 2.1 K/mm3 (0.7-4.5); Mean Corpuscular Hemoglobin 27.9 pg (27.0-31.2); Mean Platelet Volume 9.9 fl (7.4-10.4); Monocytes # 0.8 K/mm3 (0.1-1.0); Monocytes % 8.6 % (1.7-9.3); Neutrophils # 6.3 K/mm3 (1.8-7.8); Neutrophils % 66.6 % (37.0-80.0); Platelet Count 314 K/mm3 (142-424); Red Blood Count 5.22 M/mm3 (4.60-6.20); Red Cell Distribution Width 14.7 % (11.5-17.5); White Blood Count 9.4 K/mm3 (4.8-10.8)
[2022-08-29 14:26] LABS: Direct LDL Cholesterol 100.66 mg/dL (100-129)
[2022-08-29 14:36] LABS: 25-OH Vitamin D, Total < 12.8 ng/mL (30-100)
[2022-08-29 14:48] LABS: Prostate Specific Ag Screen 0.5 ng/ml (0.0-4.0); Thyroid Stimulating Hormone 1.75 uIU/mL (0.465-4.68)
[2022-08-29 15:07] LABS: Vitamin B12 340 pg/mL (239-931)
== END ==
PROVIDERS: PCP Physician Assistant; Visit Provider Physician Assistant
DX: Z00.00 Encounter for general adult medical examination without abnormal findings (principal); E55.9 Vitamin D deficiency, unspecified; Z12.5 Encounter for screening for malignant neoplasm of prostate
CPT/HCPCS: 80053; 80061; 82306; 82607; 84443; 85025; G0103

== ENCOUNTER → 2022-09-05 09:23 | Outpatient (CLI) | payer MEDICAID, SELFPAY ==
--- NOTE | 2022-09-05 09:26 | XR_ITS ---
FINAL REPORT CLINICAL HISTORY: foot pain COMPARISON: 02/22/2021 FINDINGS: Right foot Three views were obtained. There is no acute fracture or dislocation. The joint spaces appear normal. No soft tissue abnormality is identified. There is a small plantar spur. IMPRESSION: No acute process. Reviewed, Interpreted and Dictated by Yuri Chaudhry MD Transcribed by Michaela Ch Authenticated and [facility]
--- NOTE | 2022-09-05 09:26 | XR_ITS ---
FINAL REPORT CLINICAL HISTORY: foot pain COMPARISON: 02/22/2021 FINDINGS: Left foot Three views were obtained. There is no acute fracture or dislocation. The joint spaces appear normal. Orthopedic hardware seen in the distal fibula. There is soft tissue swelling over the dorsum of the foot. IMPRESSION: No acute process. Reviewed, Interpreted and Dictated by Yuri Chaudhry MD Transcribed by Michaela Ch Authenticated and [facility]
== END ==
PROVIDERS: PCP Physician Assistant; Visit Provider Physician Assistant
DX: M79.671 Pain in right foot (principal); M79.672 Pain in left foot
CPT/HCPCS: 73630

== ENCOUNTER 2023-04-14 13:21 | Emergency (ER) | payer OTHER, SELFPAY ==
--- NOTE | 2023-04-14 13:24 | XR_ITS ---
PROCEDURE INFORMATION: Exam: XR Left Ankle Exam date and time: 04/14/2023 1:46 PM Age: 47 years old Clinical indication: Pain; Ankle; Left TECHNIQUE: Imaging protocol: Radiologic exam of the left ankle. Views: 3 or more views. Total images: 3 COMPARISON: CR XR ANKLE WT BEARING LT MIN 3V 02/22/2021 11:04 AM FINDINGS: Bones/joints: Plate and screws in place as well as syndesmotic fixator without evidence of complications. No evidence of acute fracture. No evidence of acute dislocation. Calcaneal spurs are present. Soft tissues: Mild soft tissue swelling. IMPRESSION: 1. No evidence of acute fracture. 2. No evidence of acute dislocation. 3. Mild soft tissue swelling.
--- NOTE | 2023-04-14 13:24 | XR_ITS ---
PROCEDURE INFORMATION: Exam: XR Left Foot Exam date and time: 04/14/2023 1:44 PM Age: 47 years old Clinical indication: Pain; Foot; Left TECHNIQUE: Imaging protocol: Radiologic exam of the left foot. Views: 3 or more views. Total images: 3 COMPARISON: CR XR FOOT WT BEARING LT 3V 09/05/2022 9:27 AM FINDINGS: Bones/joints: Postoperative changes of the ankle. Calcaneal spurs are present. No evidence of acute fracture. No evidence of acute dislocation. Soft tissues: Soft tissue swelling noted. IMPRESSION: 1. Soft tissue swelling noted. 2. No evidence of acute fracture. 3. No evidence of acute dislocation.
[2023-04-14 13:35] VITALS: BP 141/92; PULSE 96; RESP 19; TEMP 36.8; O2SAT 98; BMI 46.0
--- NOTE | 2023-04-14 14:06 | EXP.UTC ---
Discharge Plan Disposition Patient Disposition: Home, Self-Care Condition: Good Prescriptions Prescriptions: New colchicine 0.6 mg capsule 0.6 mg PO DIRECTED Qty: 3 0RF Rx Instructions: Take 2 of the 0.6mg capsules now and wait one hour then take remaining 0.6mg capsule No Action losartan-hydrochlorothiazide 50-12.5 mg tablet 1 tab PO DAILY Qty: 90 3RF Referrals Follow up/Referrals: Socorro De Leon PA [Primary Care Provider] - See instructions Activity Restrictions/Add. Instructions Additional Instructions/Restrictions: Take medication as prescribed Over the counter Motrin may help with pain but do not take for the next 8 hours as you got a Toradol shot in the [facility] today Return if needed Follow up with your Family Doctor if no improvement or any worsening of symptoms Clinical Impressions Clinical Impression: Pseudogout Instructions Patient Instructions: DI for Pseudogout, Colchicine Discharge ED Provider: Gauri Smith [facility] [place] HPI General Stated complaint: left ankle pain/swelling, no accident Mode of Arrival: Ambulatory Source of Information: Patient Limitations: No Limitations Time Seen by Provider: 04/14/23 14:06 Description of Symptoms (Recalled from Triage Doc. by RN): PATIENT C/O PAIN TO LEFT ANKLE SINCE SUNDAY MORNING. NO KNOWN INJURY HEENT Symptoms (Recalled from RN notes): No Resp Symptoms (Recalled from RN notes): No Skin Symptoms (Recalled from RN notes): No MS Symptoms (Recalled from RN notes): Yes Functional Status (Recalled from RN notes): WNL History of Present Illness Provider Complaint: Patient states that he woke up having pain and swelling in his left ankle Denies known injury but does work on his feet States that he had surgery on this ankle a couple years ago and doesnt remember doing anything to hurt it but has been having pain and swelling since so he came in to get it checked Denies fever or chills Related Data Previous Rx's Medication Instructions Recorded losartan 50 mg-hydrochlorothiazide 1 tab PO DAILY #90 tabs 09/18/22 12.5 mg tablet colchicine 0.6 mg capsule 0.6 mg PO DIRECTED #3 caps 04/14/23 Allergies Allergy/AdvReac Type Severity Reaction Status Date / Time egg Allergy Intermediate Vomiting Verified 09/20/22 14:22 Worker's Comp Is this a Worker's Comp case?: No PFSH [facility] Disclaimer: The information contained in this section may have been updated after the patient was seen, as this information can be updated by other users. Medical History Abnormal ECG Chest pain Dizziness GONZALEZ (dyspnea on exertion) Epileptic seizure Foot pain, bilateral Heart palpitations NIKUNJ (obstructive sleep apnea) Syncope due to orthostatic hypotension Surgical History H/O adenoidectomy History of ankle surgery 4 years ago (left) History of cholecystectomy Hx of tonsillectomy Social History Smoking Status: Never smoker alcohol intake: never substance use type: denies use current occupational status: employed Travel in the last 8 weeks: None household members: family housing: house number of children: 3 current occupational exposures/hazards: No caffeine: Yes ROS Obtained: Yes All systems reviewed & no additional complaints except as documented and Yes Systems reviewed as appropriate & no additional complaints except as documented Constitutional Constitutional: Reports system reviewed and no additional complaints, except as documented, Reports as per HPI and Denies fever(s) ENT Ears, Nose, Mouth, and Throat: Reports system reviewed and no additional complaints, except as documented and Reports as per HPI Cardiovascular Cardiovascular: Reports system reviewed and no additional complaints, except as documented and Reports as per HPI Respiratory Respiratory:
[2023-04-14 14:50] LABS: Uric Acid 8.5 mg/dl (3.5-8.5)
[2023-04-14 15:00] VITALS: BP 141/92; PULSE 96; RESP 19; TEMP 36.8; O2SAT 98
== END 2023-04-14 15:34 | disposition home or self-care (01) ==
PROVIDERS: Emergency Provider Nurse Practitioner; PCP Physician Assistant
DX: M11.272 Other chondrocalcinosis, left ankle and foot (principal); M25.572 Pain in left ankle and joints of left foot; G40.909 Epilepsy, unspecified, not intractable, without status epilepticus
CPT/HCPCS: 73610; 73630; 84550; 96372; 99212; 99214; G0463

== ENCOUNTER 2023-05-10 21:02 | Emergency (ER) | payer OTHER, SELFPAY ==
[2023-05-10 21:04] VITALS: BP 173/112; PULSE 76; RESP 18; TEMP 36.4; O2SAT 98; BMI 46.1
--- NOTE | 2023-05-10 21:42 | HMH.EDGENADL ---
Discharge Plan Disposition Patient Disposition: Home, Self-Care Prescriptions Prescriptions: No Action losartan-hydrochlorothiazide 50-12.5 mg tablet 1 tab PO DAILY Qty: 90 3RF lidocaine 5 % gel 1 ea topical .q 2 hours Qty: 30 1RF colchicine 0.6 mg tablet 0.6 mg PO DAILY 30 Days Qty: 30 0RF dexamethasone 2 mg tablet 2 mg PO DAILY 5 Days Qty: 5 0RF Referrals Follow up/Referrals: Socorro De Leon PA [Primary Care Provider] - See instructions Activity Restrictions/Add. Instructions Additional Instructions/Restrictions: No clinical or historical signs or symptoms of endorgan damage as we discussed. I would recommend that you restart your blood pressure medication and that you take a blood pressure log morning afternoon and night and have further discussion with your primary care doctor regarding whether or not you are on the right medication. Clinical Impressions Clinical Impression: Asymptomatic hypertension, Nonadherence to medication Discharge ED Provider: Rossi Morgan [facility] Adult HPI General Chief complaint: Anxiety Stated complaint: BP 184/120 Time Seen by Provider: 05/10/23 21:34 Mode of Arrival: Ambulatory Source of Information: Patient Limitations: No Limitations Description of Symptoms (Recalled from ER Triage Doc. by RN): pt has high blood pressure and is prescribed losartan-hctz 50/12.5mg by pcp. he took a dose yesterday and has not had any today and came to ER tonight for high BP. according to patient he forgets to take it sometimes. pt states he felt flushed and started checking it and was 184/120 on home monitor History of Present Illness HPI narrative: Is a 48-year-old male with a history of hypertension who is not been taking his blood pressure medication regularly as he has been trying to lose weight. He states that he was playing online video games and that he felt flushed and that he took his blood pressure was significantly elevated. He has no headache no neurologic symptoms no chest pain shortness of breath changes in mental status or urination. Has not follow-up with primary care doctor regarding his blood pressure medications. States that he did not want to come to the emergency department but that his friends that he was online candi with made him come to the ED. They told him that they would call 911 if he did not come to the emergency department which is what prompted his visit today. He is without any symptoms at the moment. Related Data Previous Rx's Medication Instructions Recorded losartan 50 mg-hydrochlorothiazide 1 tab PO DAILY #90 tabs 09/18/22 12.5 mg tablet colchicine 0.6 mg tablet 0.6 mg PO DAILY 30 days #30 tabs 04/19/23 dexamethasone 2 mg tablet 2 mg PO DAILY 5 days #5 tabs 04/19/23 lidocaine 5 % topical gel 1 ea topical .q 2 hours #30 grams 04/19/23 Allergies Allergy/AdvReac Type Severity Reaction Status Date / Time egg Allergy Intermediate Vomiting Verified 04/19/23 11:11 [facility] Disclaimer: The information contained in this section may have been updated after the patient was seen, as this information can be updated by other users. Medical History Abnormal ECG Chest pain Dizziness GONZALEZ (dyspnea on exertion) Epileptic seizure Foot pain, bilateral Heart palpitations NIKUNJ (obstructive sleep apnea) Syncope due to orthostatic hypotension Surgical History H/O adenoidectomy History of ankle surgery 4 years ago (left) History of cholecystectomy Hx of tonsillectomy Social History Smoking Status: Never smoker alcohol intake: never substance use type: denies use current occupational status: employed Travel in the last 8 weeks: None household members: family housing: house number of children: 3 current occupational exposures/hazards: No caffeine:
[2023-05-10 21:44] VITALS: BP 175/105; PULSE 76; RESP 20; TEMP 36.7; O2SAT 98
== END 2023-05-10 21:46 | disposition home or self-care (01) ==
PROVIDERS: Emergency Provider Student in an Organized Health Care Education/Training Program; PCP Physician Assistant
DX: I10 Essential (primary) hypertension (principal); Z91.148 Patient's other noncompliance with medication regimen for other reason; G40.909 Epilepsy, unspecified, not intractable, without status epilepticus; G47.33 Obstructive sleep apnea (adult) (pediatric)
CPT/HCPCS: 99283

== ENCOUNTER 2023-06-18 16:17 | Emergency (ER) | payer OTHER, SELFPAY ==
[2023-06-18] VITALS (12 sets, daily range): BP systolic 134–156; BP diastolic 87–100; PULSE 76–104; RESP 16–20; TEMP 36.7–37.2; O2SAT 95–100; BMI 43.9
--- NOTE | 2023-06-18 16:16 | ECG_ITS ---
APPROVED REPORT Exam: Resting ECG HR:104 bpm ECG Measurements Heart Rate 104 AXES IA 180 P 63 QRSd 73 QRS -48 QT 331 T 44 QTc 391 Conclusion SINUS TACHYCARDIA POSSIBLE LEFT ATRIAL ENLARGEMENT LVH Late R wave progression/septal changes -- old finding ABNORMAL ECG UNCONFIRMED REPORT Electronically signed by : James Kaur MD 06/18/2023 20:15:07
--- NOTE | 2023-06-18 16:23 | XR_ITS ---
PROCEDURE INFORMATION: Exam: XR Chest Exam date and time: 06/18/2023 4:30 PM Age: 48 years old Clinical indication: Pain; Chest pressure; Additional info: Cp TECHNIQUE: Imaging protocol: Radiologic exam of the chest. Views: 1 view. Total images: 1 COMPARISON: CR XR CHEST 2V 02/12/2021 9:50 AM FINDINGS: Lungs: Atelectatic changes noted within both lung bases. Pleural spaces: No focal pneumonia or pneumothorax. No pleural effusions. Heart/Mediastinum: Unremarkable. No cardiomegaly. Bones/joints: Unremarkable. IMPRESSION: 1. Atelectatic changes noted within both lung bases. 2. No focal pneumonia or pneumothorax. 3. No pleural effusions.
--- NOTE | 2023-06-18 16:32 | ED_ITS ---
Discharge Plan Disposition Patient Disposition: Home, Self-Care Prescriptions Prescriptions: No Action losartan-hydrochlorothiazide 50-12.5 mg tablet 1 tab PO DAILY Qty: 90 3RF colchicine 0.6 mg tablet 0.6 mg PO DAILY 30 Days Qty: 30 0RF ondansetron 4 mg tablet,disintegrating 4 mg PO Q8H Qty: 30 0RF Referrals Follow up/Referrals: Socorro De Leon PA [Primary Care Provider] - See instructions Activity Restrictions/Add. Instructions Additional Instructions/Restrictions: See your family doctor about your high blood pressure, your sleep apnea and need for CPAP and chronic comorbidities. In order to ensure heart healthy moving forward and prevent heart attacks, strokes, heart failure, among others, m edication compliance is paramount. Continue taking medications as prescribed. Call your family doctor to establish care for this visit to the emergency department and schedule follow-up within 48 hours to ensure improvement. If you have any worsening of your condition or any other concerning signs or symptoms, return to the emergency department or your primary care doctor for further evaluation. Clinical Impressions Clinical Impression: Light-headedness, Noncompliance with medications, Chest pain Discharge ED Provider: Sherman Spears HPI General Chief Complaint: Chest Pain Stated Complaint: CP Time Seen by Provider: 06/18/23 16:21 History of Present Illness HPI narrative: 48-year-old male who is poorly medically compliant with history of hypertension, hyperlipidemia, NIKUNJ not on CPAP at night presenting with chest pain and lightheadedness. Happened before he got here while he was at work. [place] lightheaded, started having substernal chest pain that did not radiate. Associate with shortness of breath. Did not lose consciousness. Has not been taking his medications. Also, not wearing CPAP at home, as discussed. Related Data Previous Rx's Medication Instructions Recorded losartan 50 mg-hydrochlorothiazide 1 tab PO DAILY #90 tabs 09/18/22 12.5 mg tablet colchicine 0.6 mg tablet 0.6 mg PO DAILY 30 days #30 tabs 04/19/23 ondansetron 4 mg disintegrating 4 mg PO Q8H #30 tabs 05/16/23 tablet Allergies Allergy/AdvReac Type Severity Reaction Status Date / Time egg Allergy Intermediate Vomiting Verified 04/19/23 11:11 [facility] Disclaimer: The information contained in this section may have been updated after the patient was seen, as this information can be updated by other users. Medical History Abnormal ECG Chest pain Dizziness GONZALEZ (dyspnea on exertion) Epileptic seizure Foot pain, bilateral Heart palpitations NIKUNJ (obstructive sleep apnea) Syncope due to orthostatic hypotension Surgical History H/O adenoidectomy History of ankle surgery 4 years ago (left) History of cholecystectomy Hx of tonsillectomy Social History Smoking Status: Never smoker alcohol intake: never substance use type: denies use current occupational status: employed Travel in the last 8 weeks: None household members: family housing: house number of children: 3 current occupational exposures/hazards: No caffeine: Yes ROS Obtained: Yes All systems reviewed & no additional complaints except as documented Physical Exam General General appearance: alert and obese Neck Neck exam: Present trachea midline Chest Chest inspection: Present normal inspection and symmetric chest wall rise Respiratory Respiratory exam: Present normal lung sounds bilaterally; Absent respiratory distress, wheezes, stridor, accessory muscle use or prolonged expiratory phase Cardiovascular Cardiovascular exam: Present regular rate and normal rhythm Extremities Exam Extremities exam: Absent edema Neurological Exam Neurological exam: Present alert, oriented X3 and CN II-XII intact Skin Skin exam: Present warm and dry; Absent cyanosis, diaphoresis or pallor HEART Score HEART Score HEART Score assessment performed?: Yes History (anamnesis): Slightly suspicious ECG: Normal Age: 45-65 years Risk factors: 1-2 risk factors Troponin: </= normal limit HEART Score: 2 Critical Care Critical Care Time Critical Care Time: No Medical Decision Making Medical Records Medical records reviewed: Yes I reviewed the patient's medical records. Jalil Inquiry Pt receiving controlled substance: No Jalil was queried for this patient: No Vital Signs Vital Signs: 06/18/23 16:17 06/18/23 16:37 06/18/23 16:50 Temperature 98.0 F Temperature Source Oral Pulse Rate 104 H Pulse Rate [Right] 104 H Respiratory Rate 20 Blood Pressure 149/97 H Blood Pressure [Right Arm] 156/100 H Blood Pressure Mean Blood Pressure Mean [Right Arm] 118 Blood Pressure Source [Right Arm] Automatic Cuff 02 Sat by Pulse Oximetry 96 Oxygen Delivery Method Room Air 06/18/23 17:00 06/18/23 17:30 06/18/23 18:00 Temperature Temperature Source Pulse Rate 85 91 H 87 Pulse Rate [Right] Respiratory Rate Blood Pressure 135/87 146/94 H 144/92 H Blood Pressure [Right Arm] Blood Pressure Mean Blood Pressure Mean [Right Arm] Blood Pressure Source [Right Arm] 02 Sat by Pulse Oximetry 96 99 99 Oxygen Delivery Method Room Air Room Air Room Air 06/18/23 18:30 06/18/23 19:00 06/18/23 19:30 Temperature Temperature Source Pulse Rate 92 H 76 78 Pulse Rate [Right] Respiratory Rate 16 Blood Pressure 146/97 H 156/90 H 134/87 Blood Pressure [Right Arm] Blood Pressure Mean 102 Blood Pressure Mean [Right Arm] Blood Pressure Source [Right Arm] 02 Sat by Pulse Oximetry 100 99 97 Oxygen Delivery Method Room Air Room Air 06/18/23 20:00 Temperature 98.8 F Temperature Source Oral Pulse Rate 81 Pulse Rate [Right] Respiratory Rate 18 Blood Pressure 134/93 H Blood Pressure [Right Arm] Blood Pressure Mean 103 Blood Pressure Mean [Right Arm] Blood Pressure Source [Right Arm] 02 Sat by Pulse Oximetry 97 Oxygen Delivery Method Room Air Lab Data Labs: Lab Results 06/18/23 16:20: WBC 13.6 H, RBC 6.25 H, Hgb 18.3 H, Hct 52.9 H, MCV 84.7, MCH 29.4, MCHC 34.7, RDW 14.7, Plt Count 317, MPV 8.7, Neut % (Auto) 83.4 H, Lymph % (Auto) 9.1 L, [place] % (Auto) 5.7, Eos % (Auto) 1.1, Baso % (Auto) 0.7, Neut # (Auto) 11.4 H, Lymph # (Auto) 1.2, [place] # (Auto) 0.8, Eos # (Auto) 0.2, Baso # (Auto) 0.1, Sodium 141, Potassium 3.1 L, Chloride 96 L, Carbon Dioxide 32 H, Anion Gap 16.1 H, BUN 8 L, Creatinine 0.90, Estimated Creat Clear 93, Estimated GFR 91, Est GFR ( Amer) 110, Glucose 118 H, Calcium 9.1, Total Bilirubin 1.4 H, AST 45, ALT 43, Alkaline Phosphatase 116, Troponin I < 0.01, NT-Pro-B Natriuret Pep 131 H, Total Protein 9.3 H, Albumin 4.8, Globulin 4.5 H, Albumin/Globulin Ratio 1.1 06/18/23 19:19: Troponin I < 0.01 06/18/23 16:20 06/18/23 16:20 Response Orders (Tests/Meds): ED MEDICATIONS Generic Name Dose Route Start Last Admin Trade Name Freq PRN Reason Stop Dose Admin Nitroglycerin 0.4 mg 06/18/23 16:30 06/18/23 16:44 Nitroglycerin 0.4mg Sl Tablet SL 07/18/23 16:29 0.4 mg Q5MINP PRN Administration Chest Pain Discontinued Medications Generic Name Dose Route Start Last Admin Trade Name Freq PRN Reason Stop Dose Admin Aspirin 324 mg 06/18/23 16:23 06/18/23 16:44 Aspirin 81mg Chewable Tablet PO 06/18/23 16:24 324 mg ONCE ONE Administration Belladonna Alkaloids 60 ml 06/18/23 18:42 06/18/23 19:00 Belladonna Alkaloids 60 Ml Ml PO 06/18/23 18:43 60 ml ONCE ONE Administration Labetalol HCl 10 mg 06/18/23 16:30 06/18/23 16:50 Labetalol 5mg/Ml 20ml Mdv IV 06/18/23 16:31 10 mg ONCE ONE Administration Potassium Chloride 60 meq 06/18/23 17:24 06/18/23 17:32 Potassium Chloride 20meq Tab PO 06/18/23 17:25 60 meq ONCE ONE Administration ORDERS Category Date Time Status XR chest portable Stat Exams 06/18/23 16:23 Completed Brain Natriuretic Peptide Stat Lab 06/18/23 16:20 Completed Complete Blood Count Auto Diff Stat Lab 06/18/23 16:20 Completed Comprehensive Metabolic Panel Stat Lab 06/18/23 16:20 Completed Lipase Stat Lab 06/18/23 18:42 Ordered Troponin I Q3H Lab 06/18/23 19:19 Completed Troponin I Q3H Lab 06/18/23 22:30 Ordered Troponin I Stat Lab 06/18/23 16:20 Completed ECG initial [place] Routine Y 06/18/23 16:16 Completed MDM Narrative Medical Decision Narrative: 48-year-old male who is poorly medically compliant with history of hypertension, hyperlipidemia, NIKUNJ not on CPAP at night presenting with chest pain and lightheadedness. Happened before he got here while he was at work. [place] lightheaded, started having substernal chest pain that did not radiate. Associate with shortness of breath. Did not lose consciousness. Has not been taking his medications. Also, not wearing CPAP at home, as discussed. It to be noted that patient does not has medical comorbidities complicating current care. History was obtained via conversation with patient. On arrival, patient hemodynamically stable, alert, oriented x4, appropriate, GCS 15, moving all extremities spontaneously, pupils equal and reactive to light. Full physical exam performed and significant for chronically ill-appearing male no acute distress. Mildly tachycardic. Pulses equal and symmetric. No extracardiac sounds. Lungs clear to auscultation bilaterally anterior and posteriorly. Differential includes ACS, MO, pneumothorax, PE, dissection, pneumothorax, aortic aneurysm, pneumonia, bronchitis, among others. Patient was given aspirin, labetalol, nitroglycerin for symptomatic management and correction of underlying abnormalities. Workup independently interpreted and significant for nonactionable CBC or chemistry. Patient appears to be mildly hemoconcentrated, was given water to drink while here. Initial troponin negative. Chest x-ray without acute cardiopulmonary airspace disease. See radiology read for full review of final results. Independent interpretation of EKG shows sinus tachycardia 104 beats a minute without ST or T wave changes concerning for acute ischemia. NJ, QRS, QT intervals within normal limits. Patient does have leftward axis. Heart score 2. Patient was placed in observation beginning at 4:20 PM in order to rule out serial troponins and evolving MO and determine need for admission versus home-going. The patient was provided p.o. challenge, GI cocktail and further labs including lipase and troponin while awaiting results. Independent interpretation of results demonstrated negative delta troponin. On reevaluation, patient patti baseline. At this time, I feel patient is appropriate for discharge. Total observation time 4 hours. Because patient at baseline without signs or symptoms of clinical decompensation, deemed appro priate for discharge. Results were relayed to patient who voiced understanding and were agreeable to outpatient management and follow up. At the time of discharge the patient was hemodynamically stable, tolerating PO, and mobilizing appropriately.
[2023-06-18 16:33] LABS: Basophils # 0.1 K/mm3 (0-0.2); Basophils % 0.7 % (0.1-2.0); Eosinophils # 0.2 K/mm3 (0.0-0.4); Eosinophils % 1.1 % (0.1-12.0); Hematocrit 52.9 % (42.0-52.0); Lymphocytes # 1.2 K/mm3 (0.7-4.5); Lymphocytes % 9.1 % (10-50); Mean Corpuscular HGB Conc 34.7 g/dL (31.8-35.4); Mean Corpuscular Hemoglobin 29.4 pg (27.0-31.2); Mean Corpuscular Volume 84.7 fl (80-94); Mean Platelet Volume 8.7 fl (7.4-10.4); Monocytes # 0.8 K/mm3 (0.1-1.0); Monocytes % 5.7 % (1.7-9.3); Neutrophils # 11.4 K/mm3 (1.8-7.8); Neutrophils % 83.4 % (37.0-80.0); Platelet Count 317 K/mm3 (142-424); Red Blood Count 6.25 M/mm3 (4.60-6.20); Red Cell Distribution Width 14.7 % (11.5-17.5); White Blood Count 13.6 K/mm3 (4.8-10.8)
[2023-06-18] MEDS: ASPIRIN 81MG CHEWABLE TABLET 324 MG PO (16:44)
[2023-06-18] MEDS: NITROGLYCERIN 0.4MG SL TABLET 0.400000000000000022 MG SL (16:44)
[2023-06-18] MEDS: LABETALOL 5MG/ML 20ML MDV 10 MG IV (16:50)
[2023-06-18 16:53] LABS: NT Pro Brain Natriuretic Pep. 131 pg/mL (0-125)
--- NOTE | 2023-06-18 16:53 | PC.NURSE ---
DR ALTMAN WANTED TO GO AHEAD WITH LABETALOL
[2023-06-18 16:56] LABS: Hemoglobin 18.3 g/dL (14.1-18.0)
[2023-06-18 16:57] LABS: Troponin I < 0.01 ng/ml (0.00-0.034)
[2023-06-18 17:10] LABS: Chloride 96 mmol/L (98-107); Potassium 3.1 mmoL/L (3.5-5.1); Sodium 141 mmol/L (136-145)
[2023-06-18 17:12] LABS: Alanine Aminotransferase 43 U/L (12-78); Alkaline Phosphatase 116 U/L (38-126); Aspartate Amino Transferase 45 U/L (17-59); Bilirubin,Total 1.4 mg/dl (0.2-1.3); Blood Urea Nitrogen 8 mg/dl (9-20); Creatinine Clearance Estimated 93 mL/min (50-200); Estimated Glomerular Filt Rate 91 ml/min (>60); GFR (African American) 110 ML/MIN (>60)
[2023-06-18 17:13] LABS: Albumin Level 4.8 g/dl (3.5-5.0); Albumin/Globulin Ratio 1.1 (1.1-1.8); Anion Gap 16.1 mEq/L (5-15); Calcium 9.1 mg/dl (8.4-10.2); Carbon Dioxide 32 mmol/L (22.0-30.0); Globulin 4.5 g/dL (1.3-3.2); Glucose 118 mg/dl (74-100); Total Protein,Serum 9.3 g/dl (6.3-8.2)
[2023-06-18] MEDS: POTASSIUM CHLORIDE 20MEQ TAB 60 MEQ PO (17:32)
--- NOTE | 2023-06-18 18:41 | PC.NURSE ---
Rounded on pt. Advised he was nauseated and was having Needle like pains shooting through my stomach. Dr. Spears notified. Call light within reach.
[2023-06-18] MEDS: BELLADONNA ALKALOIDS 60 ML ML PO (19:00)
[2023-06-18 20:03] LABS: Troponin I < 0.01 ng/ml (0.00-0.034)
[2023-06-18 21:32] LABS: Lipase 34 U/L (23-300)
== END 2023-06-18 20:59 | disposition home or self-care (01) ==
PROVIDERS: Emergency Provider Emergency Medicine; PCP Physician Assistant
DX: R07.9 Chest pain, unspecified (principal); R55 Syncope and collapse; R06.02 Shortness of breath; R00.0 Tachycardia, unspecified; I10 Essential (primary) hypertension; E78.5 Hyperlipidemia, unspecified; G47.33 Obstructive sleep apnea (adult) (pediatric)
CPT/HCPCS: 71045; 80053; 83690; 83880; 84484; 85025; 93005; 96374; 99285

== ENCOUNTER 2023-06-22 19:49 | Emergency (ER) | payer OTHER, SELFPAY ==
[2023-06-22 19:50] VITALS: BP 186/110; PULSE 111; RESP 16; TEMP 36.7; O2SAT 96; BMI 43.9
[2023-06-22] MEDS: ONDANSETRON 4MG/2ML VIAL 4 MG IV (20:11)
[2023-06-22] MEDS: FAMOTIDINE 20MG/2ML VIAL 20 MG IV (20:11)
[2023-06-22] MEDS: SODIUM CHLORIDE 0.9% 10ML VIAL 8 ML IV (20:11)
[2023-06-22 20:16] LABS: Chloride 102 mmol/L (98-107)
--- NOTE | 2023-06-22 20:16 | HMH.EDGENADL ---
Discharge Plan Disposition Patient Disposition: Home, Self-Care Chief Complaint: Abdominal Pain Prescriptions Prescriptions: No Action losartan-hydrochlorothiazide 50-12.5 mg tablet 1 tab PO DAILY Qty: 90 3RF colchicine 0.6 mg tablet 0.6 mg PO DAILY 30 Days Qty: 30 0RF Auvelity 45-105 mg tablet, IR and ER, biphasic 1 tab PO BID Qty: 60 0RF ondansetron 4 mg tablet,disintegrating 4 mg PO Q8H Qty: 30 0RF omeprazole 20 mg capsule,delayed release(DR/EC) 20 mg PO DAILY Qty: 30 2RF Referrals Follow up/Referrals: Socorro De Leon PA [Primary Care Provider] - See instructions Clinical Impressions Clinical Impression: Acute renal failure (ARF) Instructions Patient Instructions: DI for Acute Abdominal Pain Discharge ED Provider: Sherman Spears General Adult HPI General Chief complaint: Abdominal Pain Stated complaint: right side abd pain nausea Time Seen by Provider: 06/22/23 19:51 Mode of Arrival: Ambulatory Source of Information: Patient Limitations: No Limitations Description of Symptoms (Recalled from ER Triage Doc. by RN): pt complains of right lower quad abd pain that radiatese into groin and around to low back. this is the 3rd time in a 7-10 days patient has been seen here at this facility in the ER. History of Present Illness HPI narrative: 48-year-old male presenting with abdominal pain. Has history of cholecystectomy. States that today, he had right lower quadrant abdominal pain that starts in his right lower quadrant, radiates medially, then downward toward his pelvis. 1 episode of nonbloody, nonbilious emesis that he states was dark, as well as diarrhea. No fevers or chills, chest pain, flank pain, dysuria, hematuria, or any other concerns. Has not taken any meds for this. Related Data Previous Rx's Medication Instructions Recorded losartan 50 mg-hydrochlorothiazide 1 tab PO DAILY #90 tabs 09/18/22 12.5 mg tablet colchicine 0.6 mg tablet 0.6 mg PO DAILY 30 days #30 tabs 04/19/23 ondansetron 4 mg disintegrating 4 mg PO Q8H #30 tabs 05/16/23 tablet omeprazole 20 mg capsule,delayed 20 mg PO DAILY #30 caps 06/18/23 release dextromethorphan IR 45 1 tab PO BID #60 ea 06/21/23 mg-bupropion ER 105 mg biphasic tablet (Auvelity) Allergies Allergy/AdvReac Type Severity Reaction Status Date / Time egg Allergy Intermediate Vomiting Verified 06/21/23 13:47 [facility] Disclaimer: The information contained in this section may have been updated after the patient was seen, as this information can be updated by other users. Medical History Abnormal ECG Chest pain Dizziness GONZALEZ (dyspnea on exertion) Epileptic seizure Foot pain, bilateral Heart palpitations NIKUNJ (obstructive sleep apnea) Syncope due to orthostatic hypotension Surgical History H/O adenoidectomy History of ankle surgery 4 years ago (left) History of cholecystectomy Hx of tonsillectomy Social History Smoking Status: Never smoker alcohol intake: never substance use type: denies use current occupational status: employed Travel in the last 8 weeks: None household members: family housing: house number of children: 3 current occupational exposures/hazards: No caffeine: Yes ROS Obtained: Yes All systems reviewed & no additional complaints except as documented Physical Exam General General appearance: alert and in no apparent distress Head Head exam: atraumatic and normocephalic Eye Eye exam: Present normal appearance, PERRL and EOMI ENT ENT exam: Present mucous membranes moist Neck Neck exam: Present normal inspection, full ROM and trachea midline Respiratory Respiratory exam: Absent respiratory distress, wheezes, stridor, accessory muscle use or prolonged expiratory phase Cardiovascular Cardiovascular exam: Present normal rhythm Abdominal Exam Abdominal exam: Present soft; Absent distention, tenderness, guarding, rebound or rigidity Abdominal tenderness: Present diffuse and mild Extremities Exam Extremities exam: Absent edema Neurological Exam Neurological exam: Present alert, oriented X3, CN II-XII intact and normal gait; Absent motor sensory deficit Skin Skin exam: Present warm and dry; Absent diaphoresis or erythema Medical Decision Making Medical Records Medical records reviewed: Yes I reviewed the patient's medical records. Jalil Inquiry Pt receiving controlled substance: No Jalil was queried for this patient: No Vital Signs: 06/22/23 19:50 Temperature 98.0 F Temperature Source Oral Pulse Rate [Right Radial] 111 H Respiratory Rate 16 Blood Pressure [Right Arm] 186/110 H Blood Pressure Mean [Right Arm] 135 02 Sat by Pulse Oximetry 96 Oxygen Delivery Method Room Air Lab Data Lab Results 06/22/23 19:55: Urine Color Yellow, Urine Appearance Clear, Urine pH 6.0, Ur Specific [place] 1.015, Urine Protein Negative, Urine Glucose (UA) Negative, Urine Ketones Negative, Urine Blood Trace-i, Urine Nitrate Negative, Urine Bilirubin Negative, Urine Urobilinogen 0.2, Ur Leukocyte Esterase Negative, Urine RBC Occasional, Urine WBC Occasional, Ur Squamous Epith Cells Occasional, Urine Bacteria None 06/22/23 20:00: WBC 12.5 H, RBC 5.91, Hgb 16.6, Hct 50.2, MCV 84.9, MCH 28.1, MCHC 33.1, RDW 14.9, Plt Count 324, MPV 8.9, Neut % (Auto) 76.1, Lymph % (Auto) 14.0, [place] % (Auto) 8.1, Eos % (Auto) 1.0, Baso % (Auto) 0.8, Neut # (Auto) 9.5 H, Lymph # (Auto) 1.7, [place] # (Auto) 1.0, Eos # (Auto) 0.1, Baso # (Auto) 0.1, Sodium 142, Potassium 3.0 L, Chloride 102, Carbon Dioxide 30, Anion Gap 13.0, BUN 33 H, Creatinine 7.10 H, Estimated Creat Clear 12, Estimated GFR 8 L*, Est GFR ( Amer) 10 L*, Glucose 103 H, Calcium 7.9 L, Total Bilirubin 0.6, AST 34, ALT 34, Alkaline Phosphatase 99, Troponin I 0.01, Total Protein 7.8, Albumin 4.1, Globulin 3.7 H, Albumin/Globulin Ratio 1.1, Lipase 96 06/22/23 20:45: Sodium 143, Potassium 3.2 L, Chloride 104, Carbon Dioxide 29, Anion Gap 13.2, BUN 33 H, Creatinine 7.10 H, Estimated Creat Clear 12, Estimated GFR 8 L*, Est GFR ( Amer) 10 L*, Glucose 100, Calcium 7.5 L, Total Bilirubin 0.6, AST 27, ALT 29, Alkaline Phosphatase 83, Total Protein 7.0, Albumin 3.7, Globulin 3.3 H, Albumin/Globulin Ratio 1.1 06/22/23 20:00 06/22/23 20:45 Orders (Tests/Meds): ED MEDICATIONS Generic Name Dose Route Start Last Admin Trade Name Silvano PRN Reason Stop Dose Admin Sodium Chloride 8 ml 06/22/23 19:52 06/22/23 20:11 Sodium Chloride 0.9% 10ml Vial IV 07/22/23 19:51 8 ml NEEDED PRN Administration dilute pepcid Discontinued Medications Generic Name Dose Route Start Last Admin Trade Name Silvano PRN Reason Stop Dose Admin Famotidine 20 mg 06/22/23 19:52 06/22/23 20:11 Famotidine 20mg/2ml Vial IV 06/22/23 19:53 20 mg ONCE ONE Administration Furosemide 40 mg 06/22/23 21:56 Furosemide 40mg/4ml Vial IV 06/22/23 21:57 ONCE ONE Sodium Chloride 1,000 mls @ 999 mls/hr 06/22/23 20:11 06/22/23 20:18 Sod Chlor 0.9% 1000ml Bag IV 06/22/23 21:11 999 mls/hr .Q1H1M ONE Administration Ketorolac Tromethamine 15 mg 06/22/23 20:11 06/22/23 20:18 Ketorolac 30mg/Ml Vial IV 06/22/23 20:12 15 mg ONCE ONE Administration Labetalol HCl 10 mg 06/22/23 23:31 Labetalol 5mg/Ml 20ml Mdv IV 06/22/23 23:32 ONCE ONE Ondansetron HCl 4 mg 06/22/23 19:52 06/22/23 20:11 Ondansetron 4mg/2ml Vial IV 06/22/23 19:53 4 mg ONCE ONE Administration Potassium Chloride 60 meq 06/22/23 21:39 06/22/23 21:48 Potassium Chloride 20meq Tab PO 06/22/23 21:40 60 meq ONCE ONE Administration ORDERS Category Date Time Status CT abdomen pelvis wo con Stat Cat Scan 06/22/23 21:04 Completed CBC w/Auto Diff [Complete Blood Count Auto Diff] Stat Lab 06/22/23 20:00 Completed CMP [Comprehensive Metabolic Panel] Stat Lab 06/22/23 20:00 Completed CMP [Comprehensive Metabolic Panel] Stat Lab 06/22/23 20:45 Completed Lipase Stat Lab 06/22/23 20:00 Completed Trop I [Troponin I] Stat Lab 06/22/23 20:00 Completed Troponin I Q3H Lab 06/22/23 23:00 Ordered Troponin I Q3H Lab 06/23/23 02:00 Ordered UA [Urinalysis and Microscopic] Stat Lab 06/22/23 19:55 Completed Medical Decision Narrative: 48-year-old male presenting with abdominal pain. Has history of cholecystectomy. States that today, he had right lower quadrant abdominal pain that starts in his right lower quadrant, radiates medially, then downward toward his pelvis. 1 episode of nonbloody, nonbilious emesis that he states was dark, as well as diarrhea. No fevers or chills, chest pain, flank pain, dysuria, hematuria, or any other concerns. Has not taken any meds for this. History was obtained via conversation with patient. On arrival, patient hemodynamically stable, alert, oriented x4, appropriate, GCS 15, moving all extremities spontaneously, pupils equal and reactive to light. Full physical exam performed and significant for well-appearing male no acute distress. Abdomen is soft, nondistended, mildly tender in right lower quadrant, left lower quadrant, suprapubic area. No signs of peritonitis and no flank tenderness. Differential includes PUD, gastritis, enteritis, gastroenteritis, pancreatitis, SBO, colitis, diverticulitis, nephrolithiasis, UTI, aortic pathology, mesenteric ischemia, appendicitis, hepatitis, among others. Patient was given Toradol, fluids, Pepcid, Zofran for symptomatic management and correction of underlying abnormalities. Workup independently interpreted and significant for mild leukocytosis 12.5. Initial CMP concerning for hypokalemia of 3.0, creatinine of 7.1. Because patient was seen just 4 days prior to this with normal chemistry, repeat CMP was drawn. Patient also urinating without issue and urine sample provided demonstrates no abnormalities other than trace blood. Repeat CMP the same. see radiology read for full review of final results. On reevaluation, patient given p.o potassium. Hospital medicine contacted and case was discussed at length, recommended reaching out to his side as nephrology in case patient goes into acute renal failure. [facility] was contacted and graciously excepted care of patient. Because patient high risk for clinical decompensation if discharged, deemed appropriate for transfer and inpatient admission. Results were relayed to patient who voiced understanding and patient was agreeable to transfer, inpatient admission, and management. Patient was graciously accepted and transferred to [place] for further definitive management, under Dr. Marsh Critical Care Critical Care Time Critical Care Time: No
[2023-06-22 20:17] LABS: Sodium 142 mmol/L (136-145)
[2023-06-22 20:18] LABS: Basophils # 0.1 K/mm3 (0-0.2); Basophils % 0.8 % (0.1-2.0); Eosinophils # 0.1 K/mm3 (0.0-0.4); Hematocrit 50.2 % (42.0-52.0); Hemoglobin 16.6 g/dL (14.1-18.0); Lymphocytes # 1.7 K/mm3 (0.7-4.5); Mean Corpuscular HGB Conc 33.1 g/dL (31.8-35.4); Mean Corpuscular Hemoglobin 28.1 pg (27.0-31.2); Mean Corpuscular Volume 84.9 fl (80-94); Mean Platelet Volume 8.9 fl (7.4-10.4); Monocytes % 8.1 % (1.7-9.3); Neutrophils # 9.5 K/mm3 (1.8-7.8); Neutrophils % 76.1 % (37.0-80.0); Platelet Count 324 K/mm3 (142-424); Red Blood Count 5.91 M/mm3 (4.60-6.20); Red Cell Distribution Width 14.9 % (11.5-17.5); White Blood Count 12.5 K/mm3 (4.8-10.8)
[2023-06-22] MEDS: 0.9 % SODIUM CHLORIDE 1000ML 1,000 ML 999 ML IV (20:18)
[2023-06-22] MEDS: KETOROLAC 30MG/ML VIAL 15 MG IV (20:18)
[2023-06-22 20:19] LABS: Alanine Aminotransferase 34 U/L (12-78); Albumin Level 4.1 g/dl (3.5-5.0); Alkaline Phosphatase 99 U/L (38-126); Aspartate Amino Transferase 34 U/L (17-59); Bilirubin,Total 0.6 mg/dl (0.2-1.3); Blood Urea Nitrogen 33 mg/dl (9-20); Carbon Dioxide 30 mmol/L (22.0-30.0); Creatinine Clearance Estimated 12 mL/min (50-200); Estimated Glomerular Filt Rate 8 ml/min (>60); GFR (African American) 10 ML/MIN (>60); Globulin 3.7 g/dL (1.3-3.2); Lipase 96 U/L (23-300); Total Protein,Serum 7.8 g/dl (6.3-8.2)
[2023-06-22 20:20] LABS: Albumin/Globulin Ratio 1.1 (1.1-1.8); Calcium 7.9 mg/dl (8.4-10.2); Glucose 103 mg/dl (74-100)
[2023-06-22 20:23] LABS: Microscopic, Urine URINE MICROSCOPIC (MICROSCOPIC)
[2023-06-22 20:24] LABS: Appearance,Urine CLEAR (Clear); Bilirubin,Urine Negative (Negative); Blood, Urine TRACE-I (Negative); Color,Urine YELLOW (Yellow); Glucose,Urine (UA) Negative (Negative); Ketones,Urine Negative (Negative); Leukocyte Esterase,Urine Negative (Negative); Nitrate,Urine Negative (Negative); Protein,Urine Negative (Negative); Specific Gravity, Urine 1.015 (1.005-1.030); Urobilinogen,Urine 0.2 EU/dl (0.2)
[2023-06-22 20:31] LABS: Troponin I 0.01 ng/ml (0.00-0.034)
[2023-06-22 20:34] LABS: RBC,Urine Occasional #/hpf (0-3); Squamous Epithelial Cell,Urine Occasional #/hpf (0-5); WBC,Urine Occasional #/hpf (0-3)
[2023-06-22 20:58] LABS: Chloride 104 mmol/L (98-107); Potassium 3.2 mmoL/L (3.5-5.1); Sodium 143 mmol/L (136-145)
[2023-06-22 21:00] LABS: Alanine Aminotransferase 29 U/L (12-78); Blood Urea Nitrogen 33 mg/dl (9-20); Creatinine Clearance Estimated 12 mL/min (50-200); Estimated Glomerular Filt Rate 8 ml/min (>60); GFR (African American) 10 ML/MIN (>60)
[2023-06-22 21:01] LABS: Albumin Level 3.7 g/dl (3.5-5.0); Albumin/Globulin Ratio 1.1 (1.1-1.8); Alkaline Phosphatase 83 U/L (38-126); Anion Gap 13.2 mEq/L (5-15); Aspartate Amino Transferase 27 U/L (17-59); Bilirubin,Total 0.6 mg/dl (0.2-1.3); Calcium 7.5 mg/dl (8.4-10.2); Carbon Dioxide 29 mmol/L (22.0-30.0); Globulin 3.3 g/dL (1.3-3.2); Glucose 100 mg/dl (74-100)
--- NOTE | 2023-06-22 21:04 | CT_ITS ---
PROCEDURE INFORMATION: Exam: CT Abdomen And Pelvis Without Contrast Exam date and time: 06/22/2023 9:20 PM Age: 48 years old Clinical indication: Abdominal pain; Localized; Right lower quadrant (rlq); Patient HX: Rlq abd pain, elevated creatinine; Additional info: Abdominal pain, elevated creatinine TECHNIQUE: Imaging protocol: Computed tomography of the abdomen and pelvis without contrast. Radiation optimization: All CT scans at this facility use at least one of these dose optimization techniques: automated exposure control; mA and/or kV adjustment per patient size (includes targeted exams where dose is matched to clinical indication); or iterative reconstruction. COMPARISON: ABD US ABD(COMPLETE-MULTI ORGANS 04/13/2017 9:35 AM FINDINGS: Pleural spaces: No pleural fluid or pneumothorax. Heart: Heart size is normal. Liver: Normal configuration. Homogeneous parenchyma. Gallbladder and bile ducts: Prior cholecystectomy. No biliary tree dilation or high-density retained stones appreciated. Pancreas: Normal. No ductal dilation. Spleen: Spleen measures 13.7 cm in length. There is a 2.0 cm accessory spleen at the hilus. Adrenal glands: Normal configuration. Kidneys and ureters: Kidneys are symmetric without evidence of obstruction or inflammation. Stomach and bowel: Unremarkable. No obstruction. No mural thickening. Appendix: Normal appendix is confirmed. Intraperitoneal space: No free air. No significant fluid collection. Vasculature: Normal caliber arterial structures. Lymph nodes: Calcified granulomata. Calcified hilar lymph nodes. Urinary bladder: Unremarkable as visualized. Reproductive: Physiologic appearance for age. Bones/joints: No fracture or destructive lesion. Soft tissues: No perineal/perianal abscess or inflammation. IMPRESSION: No acute abnormality identified to explain patient's right lower quadrant pain. In particular, there is no evidence of urolithiasis and a normal appendix is confirmed. There has been prior cholecystectomy but no biliary tree dilation is evident.
--- NOTE | 2023-06-22 21:13 | PC.NURSE ---
Received a phone call from lab of a critical lab value on this patient, a creatnine level of 7.1 and this was relayed to patients nurse and Dr. Spears.
[2023-06-22] MEDS: POTASSIUM CHLORIDE 20MEQ TAB 60 MEQ PO (21:48)
--- NOTE | 2023-06-22 22:12 | PC.NURSE ---
pc to [facility], spoke with Bisi
--- NOTE | 2023-06-22 22:27 | PC.NURSE ---
call back from [facility] ED doctor to call back when available
--- NOTE | 2023-06-22 23:24 | PC.NURSE ---
pc to [facility] re patient transfer
--- NOTE | 2023-06-22 23:42 | PC.NURSE ---
pt accepted to [place], awaiting call back with room
[2023-06-23] MEDS: FUROSEMIDE 40MG/4ML VIAL 40 MG IV (00:11)
[2023-06-23 00:19] VITALS: BP 175/117
[2023-06-23] MEDS: LABETALOL 20MG/4ML SYRINGE 10 MG IV (00:19)
--- NOTE | 2023-06-23 00:21 | PC.NURSE ---
called report to Leigh Ann TEJADA at [facility] on 4A, pt is going to room 469, has been accepted by Dr. Marsh for SHANKAR/ elevated creatine. Per ER MD patient is ok to go by POV. IV will be removed prior to patient leaving.
[2023-06-23 00:41] VITALS: BP 147/97; PULSE 70; RESP 20; TEMP 36.7; O2SAT 96
== END 2023-06-23 00:55 | disposition home or self-care (01) ==
PROVIDERS: Emergency Provider Emergency Medicine; PCP Physician Assistant
DX: N17.9 Acute kidney failure, unspecified (principal); R10.31 Right lower quadrant pain; M54.50 Low back pain, unspecified; R11.10 Vomiting, unspecified; G47.33 Obstructive sleep apnea (adult) (pediatric); G40.909 Epilepsy, unspecified, not intractable, without status epilepticus
CPT/HCPCS: 36415; 74176; 80053; 81001; 83690; 84484; 85025; 96361; 96374; 96375; 96376; 99285; J2405

== ENCOUNTER 2023-06-29 08:45 | Emergency (ER) | payer OTHER, SELFPAY ==
[2023-06-29] VITALS (8 sets, daily range): BP systolic 113–152; BP diastolic 75–102; PULSE 70–106; RESP 12–20; TEMP 36.6; O2SAT 95–98; BMI 43.9
--- NOTE | 2023-06-29 09:05 | ED_ITS ---
Discharge Plan Disposition Patient Disposition: Home, Self-Care Prescriptions Prescriptions: New cholecalciferol (vitamin D3) 1,250 mcg (50,000 unit) capsule 50,000 unit PO WEEKLY 90 Days Qty: 10 0RF No Action losartan-hydrochlorothiazide 50-12.5 mg tablet 1 tab PO DAILY Qty: 90 3RF colchicine 0.6 mg tablet 0.6 mg PO DAILY 30 Days Qty: 30 0RF Auvelity 45-105 mg tablet, IR and ER, biphasic 1 tab PO BID Qty: 60 0RF ondansetron 4 mg tablet,disintegrating 4 mg PO Q8H Qty: 30 0RF omeprazole 20 mg capsule,delayed release(DR/EC) 20 mg PO DAILY Qty: 30 2RF Referrals Follow up/Referrals: Socorro De Leon PA [Primary Care Provider] - See instructions Activity Restrictions/Add. Instructions Additional Instructions/Restrictions: Call your family doctor to establish care for this visit to the emergency department and schedule follow-up within 48 hours to ensure improvement. If you have any worsening of your condition or any other concerning signs or symptoms, return to the emergency department or your primary care doctor for further evaluation. Talk to your family doctor about getting repeat vitamin D studies, calcitonin, thyroid, and parathyroid studies in about a month. Be sure to take vitamin D daily as sent to your pharmacy. Clinical Impressions Clinical Impression: Hypovitaminosis D, Hyperparathyroidism, Hypocalcemia Discharge ED Provider: Sherman Spears General Adult HPI General Chief complaint: Neuro Symptoms/Deficit Stated complaint: feels like body falling asleep face and hand tingl Time Seen by Provider: 06/29/23 08:49 Mode of Arrival: Ambulatory Source of Information: Patient Limitations: No Limitations Description of Symptoms (Recalled from ER Triage Doc. by RN): Patient states he has been feeling numbness and tingles in his face, arms and hands intermittently since yesterday and sometimes feels like he is going to pass out. Denies any pain. History of Present Illness HPI narrative: 48-year-old male with history of hypertension and recent history of acute renal failure (sent outside facility creatinine 7.0, discharged on 06/27 creatinine 4.2) presenting with tingling. Patient states that over the past 2 days he has felt tingling all over the place. In his face, his hands, his extremities. It is worse when he is changing positions. Denies chest pain, palpitations, nausea vomiting, abdominal pain, vision changes, shortness of breath. Patient still has been urinating without issue. He states they were unable to find what caused patient's acute renal failure, but he did not need dialysis at that time. New medications include amlodipine, his hydrochlorothiazide was discontinued. Related Data Previous Rx's Medication Instructions Recorded losartan 50 mg-hydrochlorothiazide 1 tab PO DAILY #90 tabs 09/18/22 12.5 mg tablet colchicine 0.6 mg tablet 0.6 mg PO DAILY 30 days #30 tabs 04/19/23 ondansetron 4 mg disintegrating 4 mg PO Q8H #30 tabs 05/16/23 tablet omeprazole 20 mg capsule,delayed 20 mg PO DAILY #30 caps 06/18/23 release dextromethorphan IR 45 1 tab PO BID #60 ea 06/21/23 mg-bupropion ER 105 mg biphasic tablet (Auvelity) cholecalciferol (vitamin D3) 1,250 50,000 unit PO WEEKLY 3 months #10 06/29/23 mcg (50,000 unit) capsule caps Allergies Allergy/AdvReac Type Severity Reaction Status Date / Time egg Allergy Intermediate Vomiting Verified 06/21/23 13:47 [facility] Disclaimer: The information contained in this section may have been updated after the patient was seen, as this information can be updated by other users. Medical History Abnormal ECG Chest pain Dizziness GONZALEZ (dyspnea on exertion) Epileptic seizure Foot pain, bilateral Heart palpitations NIKUNJ (obstructive sleep apnea) Syncope due to orthostatic hypotension Surgical History H/O adenoidectomy History of ankle surgery 4 years ago (left) History of cholecystectomy Hx of tonsillectomy Social History Smoking Status: Never smoker alcohol intake: never substance use type: denies use current occupational status: employed Travel in the last 8 weeks: None household members: family housing: house number of children: 3 current occupational exposures/hazards: No caffeine: Yes ROS Obtained: Yes All systems reviewed & no additional complaints except as documented Physical Exam General General appearance: alert, in no apparent distress and anxious Head Head exam: atraumatic and normocephalic Eye Eye exam: Present normal appearance, PERRL and EOMI ENT ENT exam: Present mucous membranes moist Neck Neck exam: Present normal inspection, full ROM and trachea midline Respiratory Respiratory exam: Present normal lung sounds bilaterally; Absent respiratory distress, wheezes, stridor, accessory muscle use or prolonged expiratory phase Cardiovascular Cardiovascular exam: Present regular rate and normal rhythm Abdominal Exam Abdominal exam: Present soft; Absent distention, tenderness, guarding, rebound or rigidity Extremities Exam Extremities exam: Present other (Trousseau sign positive, when pressure cuff inflated); Absent edema Neurological Exam Neurological exam: Present alert, oriented X3, CN II-XII intact and normal gait; Absent motor sensory deficit Skin Skin exam: Present warm and dry; Absent diaphoresis or erythema Medical Decision Making Medical Records Medical records reviewed: Yes I reviewed the patient's medical records. Jalil Inquiry Pt receiving controlled substance: No Jalil was queried for this patient: No Vital Signs: 06/29/23 08:47 06/29/23 09:31 06/29/23 10:01 Temperature 97.8 F Temperature Source Oral Pulse Rate 96 H 70 Pulse Rate [Right] 106 H Respiratory Rate 20 20 18 Blood Pressure 125/87 113/75 Blood Pressure [Right Arm] 152/102 H Blood Pressure Mean 98 91 Blood Pressure Mean [Right Arm] 118 Blood Pressure Source [Right Arm] Automatic Cuff 02 Sat by Pulse Oximetry 97 97 96 Oxygen Delivery Method Room Air 06/29/23 10:31 Temperature Temperature Source Pulse Rate 92 H Pulse Rate [Right] Respiratory Rate 18 Blood Pressure 117/82 Blood Pressure [Right Arm] Blood Pressure Mean 94 Blood Pressure Mean [Right Arm] Blood Pressure Source [Right Arm] 02 Sat by Pulse Oximetry 96 Oxygen Delivery Method Lab Data Lab Results 06/29/23 09:20: WBC 5.6, RBC 5.57, Hgb 16.1, Hct 46.7, MCV 83.8, MCH 28.9, MCHC 34.5, RDW 14.7, Plt Count 234, MPV 8.8, Neut % (Auto) 63.3, Lymph % (Auto) 22.0, Isabela % (Auto) 11.3 H, Eos % (Auto) 1.9, Baso % (Auto) 1.6, Neut # (Auto) 3.5, Lymph # (Auto) 1.2, Isabela # (Auto) 0.6, Eos # (Auto) 0.1, Baso # (Auto) 0.1, Sodium 144, Potassium 3.6, Chloride 103, Carbon Dioxide 28, Anion Gap 16.6 H, BUN 14, Creatinine 1.90 H, Estimated Creat Clear 44, Estimated GFR 38 L, Est GFR ( Amer) 46 L, Glucose 100, Calcium 7.5 L, Phosphorus 2.8, Magnesium 1.2 L , Total Bilirubin 0.6, AST 54, ALT 43, Alkaline Phosphatase 74, Total Protein 7.3, Albumin 3.9, Globulin 3.4 H, Albumin/Globulin Ratio 1.1, 25-OH Vitamin D Total < 12.8 L, TSH 1.48, Thyroxine (T4) 8.8, PTH Intact 220.0 H 06/29/23 09:20 06/29/23 09:20 Orders (Tests/Meds): ED MEDICATIONS Generic Name Dose Route Start Last Admin Trade Name Ricq PRN Reason Stop Dose Admin Calcium Gluconate/Sodium Chloride 2 gm in 100 mls @ 50 mls/hr 06/29/23 10:18 06/29/23 11:11 Calcium Gluconate 2,000mg/100ml Nacl Premix IV 06/29/23 12:17 50 mls/hr ONCE ONE Administration Discontinued Medications Generic Name Dose Route Start Last Admin Trade Name Ricq PRN Reason Stop Dose Admin Ergocalciferol 50,000 unit 06/29/23 11:05 06/29/23 11:11 Ergocalciferol 50,000 Units (1.25mg) Capsule PO 06/29/23 11:06 50,000 unit ONCE ONE Administration Sodium Chloride 1,000 mls @ 999 mls/hr 06/29/23 09:24 Sod Chlor 0.9% 1000ml Bag IV 06/29/23 10:24 .Q1H1M ONE Lactated Ringer's 1,000 mls @ 999 mls/hr 06/29/23 09:25 06/29/23 09:31 Lactated Ringer's 1000 Ml Bag IV 06/29/23 10:25 999 mls/hr .Q1H1M ONE Administration Magnesium Sulfate 2 gm in 50 mls @ 50 mls/hr 06/29/23 10:17 06/29/23 10:38 Magnesium Sulfate 2gm/50ml Premix IV 06/29/23 11:16 50 mls/hr ONCE ONE Administration ORDERS Category Date Time Status 1,25-Dihydroxy,Vitamin D by MS Stat Lab 06/29/23 09:20 Received 25-OH Vitamin D, Total Stat Lab 06/29/23 09:20 Completed CBC w/Auto Diff [Complete Blood Count Auto Diff] Stat Lab 06/29/23 09:20 Completed CMP [Comprehensive Metabolic Panel] Stat Lab 06/29/23 09:20 Completed Calcitonin Stat Lab 06/29/23 09:20 Received Intact Parathyroid Hormone Stat Lab 06/29/23 09:20 Completed Magnesium Stat Lab 06/29/23 09:20 Completed PTH Related Peptide Stat Lab 06/29/23 09:20 Received Phosphorous Stat Lab 06/29/23 09:20 Completed T4 (Thyroxine) Stat Lab 06/29/23 09:20 Completed TSH [Thyroid Stimulating Hormone] Stat Lab 06/29/23 09:20 Completed Medical Decision Narrative: 48-year-old male with history of hypertension and recent history of acute renal failure (sent outside facility creatinine 7.0, discharged on 06/27 creatinine 4.2) presenting with tingling. Patient states that over the past 2 days he has felt tingling all over the place. In his face, his hands, his extremities. It is worse when he is changing positions. Denies chest pain, palpitations, nausea vomiting, abdominal pain, vision changes, shortness of breath. Patient still has been urinating without issue. He states they were unable to find what caused patient's acute renal failure, but he did not need dialysis at that time. New medications include amlodipine, his hydrochlorothiazide was discontinued. History was obtained via conversation with patient and outside hospital chart review. On arrival, patient hemodynamically stable, alert, oriented x4, appropriate, GCS 15, moving all extremities spontaneously, pupils equal and reactive to light. Full physical exam performed and significant for anxious appearing male no acute distress. Normotensive, nontachycardic, neurologically intact. Patient breathing 20-25 times a minute. While I was having discussion with patient, blood pressure cuff inflated and patient had positive Trousseau sign right upper extremity. Differential includes hypocalcemia, hypoparathyroidism, hypothyroidism, other endocrinologic abnormality, medication induced, anxiety, arrhythmia, among ot hers. Patient was given LR, calcium gluconate, magnesium IV for symptomatic management and correction of underlying abnormalities. Workup independently interpreted and significant for nonactionable CBC. Chemistry with significantly improved creatinine 1.9 down from 7.1 just a few days prior. Calcium low 7.5, ionized calcium not available here at [facility]. Patient's magnesium was also low at 1.6. Vitamin D level undetectably low, PTH significantly elevated at 220. Thyroid studies normal. See radiology read for full review of final results. Independent interpretation of EKG shows sinus rh ythm 71 beats a minute without ST or T wave changes concerning for acute anemia. [place], QRS, QT intervals within normal limits. On reevaluation, patient resting comfortably bed. He was given 50,000 units p.o. vitamin D. Given patient presentation, workup, history, this most likely represents vitamin D deficiency precipitating hypocalcemia and hyperparathyroidism. Because patient at baseline without signs or symptoms of clinical decompensation, deemed appropriate for discharge. Results were relayed to patient who voiced understanding and were agreeable to outpatient management and follow up. At the time of discharge the patient was hemodynamically stable, tolerating PO, and mobilizing appropriately. Critical Care Critical Care Time Critical Care Time: No
[2023-06-29] MEDS: LACTATED RINGERS 1000ML 1,000 ML 999 ML IV (09:31)
[2023-06-29 09:33] LABS: Basophils # 0.1 K/mm3 (0-0.2); Basophils % 1.6 % (0.1-2.0); Eosinophils # 0.1 K/mm3 (0.0-0.4); Eosinophils % 1.9 % (0.1-12.0); Hematocrit 46.7 % (42.0-52.0); Hemoglobin 16.1 g/dL (14.1-18.0); Lymphocytes # 1.2 K/mm3 (0.7-4.5); Mean Corpuscular HGB Conc 34.5 g/dL (31.8-35.4); Mean Corpuscular Hemoglobin 28.9 pg (27.0-31.2); Mean Corpuscular Volume 83.8 fl (80-94); Mean Platelet Volume 8.8 fl (7.4-10.4); Monocytes # 0.6 K/mm3 (0.1-1.0); Monocytes % 11.3 % (1.7-9.3); Neutrophils # 3.5 K/mm3 (1.8-7.8); Neutrophils % 63.3 % (37.0-80.0); Platelet Count 234 K/mm3 (142-424); Red Blood Count 5.57 M/mm3 (4.60-6.20); Red Cell Distribution Width 14.7 % (11.5-17.5); White Blood Count 5.6 K/mm3 (4.8-10.8)
[2023-06-29 09:58] LABS: Alanine Aminotransferase 43 U/L (12-78); Albumin Level 3.9 g/dl (3.5-5.0); Albumin/Globulin Ratio 1.1 (1.1-1.8); Alkaline Phosphatase 74 U/L (38-126); Anion Gap 16.6 mEq/L (5-15); Aspartate Amino Transferase 54 U/L (17-59); Bilirubin,Total 0.6 mg/dl (0.2-1.3); Blood Urea Nitrogen 14 mg/dl (9-20); Calcium 7.5 mg/dl (8.4-10.2); Carbon Dioxide 28 mmol/L (22.0-30.0); Chloride 103 mmol/L (98-107); Creatinine Clearance Estimated 44 mL/min (50-200); Estimated Glomerular Filt Rate 38 ml/min (>60); GFR (African American) 46 ML/MIN (>60); Globulin 3.4 g/dL (1.3-3.2); Glucose 100 mg/dl (74-100); Magnesium 1.2 mg/dl (1.6-2.3); Phosphorous 2.8 mg/dl (2.5-4.5); Potassium 3.6 mmoL/L (3.5-5.1); Sodium 144 mmol/L (136-145); Total Protein,Serum 7.3 g/dl (6.3-8.2)
--- NOTE | 2023-06-29 10:08 | ECG_ITS ---
APPROVED REPORT Exam: Resting ECG HR:71 bpm ECG Measurements Heart Rate 71 AXES OR 157 P 48 QRSd 101 QRS -19 QT 407 T 5 QTc 430 Conclusion SINUS RHYTHM POSSIBLE ANTERIOR MYOCARDIAL INFARCTION , PROBABLY OLD [30 ms Q WAVE IN V3/V4, OR R < 0.2 mV IN V4] BORDERLINE ECG UNCONFIRMED REPORT Electronically signed by : James Kaur MD 06/30/2023 13:41:45
[2023-06-29 10:15] LABS: T4 (Thyroxine) 8.8 ug/dl (5.53-11.0)
[2023-06-29 10:29] LABS: Thyroid Stimulating Hormone 1.48 uIU/mL (0.465-4.68)
[2023-06-29] MEDS: MAGNESIUM SULFATE IN WATER 2 GM/50 ML PIGGYBACK IV (10:38)
[2023-06-29 10:55] LABS: 25-OH Vitamin D, Total < 12.8 ng/mL (30-100)
[2023-06-29] MEDS: ERGOCALCIFEROL 50,000 UNITS (1.25MG) CAPSULE 50000 UNIT PO (11:11)
[2023-06-29] MEDS: CALCIUM GLUC IN NACL, ISO-OSM 2 GM/100 ML BAG IV (11:11)
[2023-07-01 19:23] LABS: Calcitonin <2.0 pg/mL (0.0-8.4)
[2023-07-10 10:17] LABS: PTH Related Peptide 6.3
== END 2023-06-29 13:22 | disposition home or self-care (01) ==
PROVIDERS: Emergency Provider Emergency Medicine; PCP Physician Assistant
DX: E21.3 Hyperparathyroidism, unspecified (principal); R20.0 Anesthesia of skin; R20.2 Paresthesia of skin; I10 Essential (primary) hypertension; G40.909 Epilepsy, unspecified, not intractable, without status epilepticus; G47.33 Obstructive sleep apnea (adult) (pediatric)
CPT/HCPCS: 80053; 82306; 82308; 82397; 83735; 83970; 84100; 84436; 84443; 85025; 93005; 96361; 96365; 96366; 96368; 99285; J3475

== ENCOUNTER 2023-07-05 20:58 | Outpatient (CLI) | payer OTHER, SELFPAY ==
[2023-07-18 18:52] LABS: Alanine Aminotransferase 47 U/L (12-78); Albumin/Globulin Ratio 1.2 (1.1-1.8); Alkaline Phosphatase 96 U/L (38-126); Anion Gap 9.1 mEq/L (5-15); Aspartate Amino Transferase 42 U/L (17-59); Bilirubin,Total 0.5 mg/dl (0.2-1.3); Blood Urea Nitrogen 12 mg/dl (9-20); Calcium 9.2 mg/dl (8.4-10.2); Carbon Dioxide 32 mmol/L (22.0-30.0); Chloride 104 mmol/L (98-107); Estimated Glomerular Filt Rate 80 ml/min (>60); GFR (African American) 97 ML/MIN (>60); Globulin 3.3 g/dL (1.3-3.2); Glucose 77 mg/dl (74-100); Magnesium 2.1 mg/dl (1.6-2.3); Potassium 4.1 mmoL/L (3.5-5.1); Sodium 141 mmol/L (136-145); Total Protein,Serum 7.3 g/dl (6.3-8.2)
[2023-07-18 19:05] LABS: Intact Parathyroid Hormone 90.1 pg/mL (7.5-53.5)
[2023-07-18 19:10] LABS: 25-OH Vitamin D, Total 23.6 ng/mL (30-100)
== END 2023-07-05 23:59 ==
LOC: LAB.DROPOF 07-18 21:00
PROVIDERS: PCP Physician Assistant; Visit Provider Physician Assistant
DX: E21.3 Hyperparathyroidism, unspecified (principal); E55.9 Vitamin D deficiency, unspecified
CPT/HCPCS: 80053; 82306; 83735; 83970

== ENCOUNTER 2023-09-19 10:25 | Outpatient (CLI) | payer MEDICAID, SELFPAY ==
--- NOTE | 2023-09-19 10:31 | XR_ITS ---
FINAL REPORT CLINICAL HISTORY: Right Foot Pain COMPARISON: 09/05/2022 FINDINGS: RIGHT FOOT 3 views of the right foot were obtained. There is no acute fracture or dislocation. Visualized joint spaces are normally aligned. There is a small plantar spur. Soft tissues are unremarkable. IMPRESSION: No acute bony abnormality. Small plantar spur. Reviewed, Interpreted and Dictated by Yuri Chaudhry MD Transcribed by Meena Barrera Authenticated and [facility]
--- NOTE | 2023-09-19 10:31 | XR_ITS ---
FINAL REPORT CLINICAL HISTORY: Left Foot Pain COMPARISON: 04/14/2023 FINDINGS: LEFT FOOT Three views of the left foot demonstrate no acute fracture or dislocation. Fusion hardware is noted in the distal fibula. The visualized joint spaces are normally aligned. The soft tissues are unremarkable. IMPRESSION: No acute bony abnormality. Reviewed, Interpreted and Dictated by Yuri Chaudhry MD Transcribed by Meena Barrera Authenticated and . [facility]
== END 2023-09-19 23:59 | disposition home or self-care (01) ==
LOC: RAD 10:26
PROVIDERS: PCP Physician Assistant; Visit Provider Physician Assistant
DX: M79.671 Pain in right foot (principal); M79.672 Pain in left foot
CPT/HCPCS: 73630

== ENCOUNTER 2023-10-05 15:10 | Outpatient (CLI) | payer MEDICAID, SELFPAY ==
--- NOTE | 2023-10-05 15:11 | MR_ITS ---
FINAL REPORT TECHNIQUE: Multiplanar MR of the foot without gadolinium enhancement. CLINICAL HISTORY: evaluate for stress fx, peroneal tear. lateral sided foot pain.no injury or trauma. COMPARISON: None FINDINGS: Marrow signal: Unremarkable Joints: Unremarkable Tendons:Visualized tendons are unremarkable Ligaments:Major ligaments intact Plantar Fascia: Minimal changes of plantar fasciitis are present. No cystic or soft tissue mass. IMPRESSION: No acute osseous or soft tissue abnormality of the foot. Minimal changes of plantar fasciitis. Reviewed, Interpreted and Dictated by Reanna Xiao MD Transcribed by Maria Esther Fragoso Authenticated and [facility]
== END 2023-10-05 23:59 | disposition home or self-care (01) ==
LOC: RAD 15:11
PROVIDERS: PCP Physician Assistant; Visit Provider Podiatrist
DX: M76.71 Peroneal tendinitis, right leg (principal); M84.374A Stress fracture, right foot, initial encounter for fracture; M77.51 Other enthesopathy of right foot and ankle; R20.2 Paresthesia of skin
CPT/HCPCS: 73718